=== PATIENT | male | born 1940 | race Caucasian/White ===

== ENCOUNTER 2020-01-01 09:05 | Outpatient (CLI) | payer MEDICARE, OTHER, SELFPAY ==
[2020-01-01 13:09] LABS: Basophils Percent Auto 0.4 % (0.2-1.2); Eosinophils Absolute Auto 0.5 K/mm3 (0-0.3); Eosinophils Percent Auto 8.1 % (0-4.4); Hemoglobin 15.8 g/dL (14.0-18.0); Immature Granulocyte Absolute 0.03 K/mm3 (0.00-0.031); Immature Granulocyte Percent A 0.5 % (0-0.5); Lymphocytes Absolute Auto 2.07 K/mm3 (0.9-3.2); Lymphocytes Percent Auto 36.6 % (18.3-44.2); Mean Corpuscular HGB Conc 32.2 g/dl (32-36); Mean Corpuscular Hemoglobin 30.6 pg (26-34); Monocytes Absolute Auto 0.4 K/mm3 (0.1-0.6); Monocytes Percent Auto 6.9 % (2.6-8.5); Neutrophils Absolute Auto 2.7 K/mm3 (1.3-6.7); Neutrophils Percent Auto 47.5 % (45.5-73.1); Platelet Count Result 255 k/mm3 (150-375); Red Blood Count 5.16 M/mm3 (4.6-6.20); Red Cell Distribution Width 12.1 % (11.5-14.5); White Blood Count 5.7 K/mm3 (4.5-10.0)
[2020-01-01 13:15] LABS: Cholesterol 166 mg/dL (0-200); HDL Direct 42 mg/dL; Triglycerides 144 mg/dL (<150)
[2020-01-01 13:17] LABS: Hemoglobin A1C 6.3 % (<5.7)
[2020-01-01 13:28] LABS: LDL Cholesterol Direct 100 mg/dL
[2020-01-04 10:25] LABS: Testosterone Total 644 ng/dL (250-1100)
== END 2020-01-01 09:06 | disposition home or self-care (01) ==
LOC: ANHWCLAB 09:14
PROVIDERS: PCP Internal Medicine; Visit Provider Internal Medicine
DX: R73.03 Prediabetes (principal); I10 Essential (primary) hypertension; E78.2 Mixed hyperlipidemia; N52.9 Male erectile dysfunction, unspecified; Z79.899 Other long term (current) drug therapy
CPT/HCPCS: 36415; 80061; 83036; 84403; 84443; 85025

== ENCOUNTER 2020-01-08 10:45 | Outpatient (CLI) | payer MEDICARE, OTHER, SELFPAY ==
[2020-01-08 13:53] LABS: Free T4 Free Thyroxine 1.03 ng/mL (0.78-2.19)
== END 2020-01-08 10:46 | disposition home or self-care (01) ==
LOC: ANHWCLAB 10:48
PROVIDERS: PCP Internal Medicine; Referring Provider Internal Medicine; Visit Provider Internal Medicine
DX: R94.6 Abnormal results of thyroid function studies (principal)
CPT/HCPCS: 36415; 84439

== ENCOUNTER 2020-10-19 01:31 | Outpatient (CLI) | payer MEDICARE, OTHER, SELFPAY ==
[2020-10-19 18:52] LABS: SARS-CoV-2 RNA PCR Negative
== END 2020-10-19 01:32 | disposition home or self-care (01) ==
LOC: ANHCOVIDDT 01:32
PROVIDERS: PCP Internal Medicine; Visit Provider Internal Medicine Gastroenterology
DX: Z01.818 Encounter for other preprocedural examination (principal); Z20.828 Contact with and (suspected) exposure to other viral communicable diseases
CPT/HCPCS: 87635; C9803; U0003

== ENCOUNTER 2020-10-22 00:32 | Day surgery (SDC) | payer MEDICARE, OTHER, SELFPAY ==
[2020-10-16 10:35] VITALS: BMI 22.6
--- NOTE | 2020-10-21 12:46 | WPDANESEPPF ---
Anes - Initial Pre Proc Eval Procedure: Operation Date: 10/22/20 09:30 Proposed Procedures p Colonoscopy - Shemar Luna MD Date/Time: 10/21/20 12:46 Surgeon: Shemar Luna MD Pre Op Diagnosis: Change In Bowel Habits Patient Data Age: 80 Gender: M Height: 1.88 m Weight: 80 kg Allergies Allergy/AdvReac Type Severity Reaction Status Date / Time No Known Allergies Allergy Unknown Verified 10/22/20 08:06 Home Medications Medication Instructions Recorded Confirmed Type omega-3 fatty acids-fish oil 360 3 cap PO DAILY cap 01/08/20 10/22/20 History mg-1,200 mg capsule lisinopril 10 mg tablet 10 mg PO DAILY #90 tablet 02/12/20 10/22/20 Rx atorvastatin 20 mg tablet 20 mg PO DAILY #90 tablet 07/06/20 10/22/20 Rx testosterone 3 pump TRANSDERM QAM #60 gm 09/23/20 10/22/20 Rx multivitamin 1 tablet PO DAILY 09/29/20 10/22/20 History metformin 500 mg PO DAILY 10/16/20 10/22/20 History Patient hx anesthesia problems: none Family hx anesthesia problems: none PMFSH Past Medical History Medical History (Updated 09/29/20 @ 09:24 by Nena Sepulveda CMA) Abnormal finding of blood chemistry Benign essential hypertension BMI 22.0-22.9, adult BMI 23.0-23.9, adult Borderline abnormal TFTs Change in bowel habits Changes in vision CKD (chronic kidney disease) Colon cancer screening Constipation Elevated TSH Encounter for Medicare annual wellness exam Encounter for routine adult health examination without abnormal findings Encounter for special screening examination for neoplasm of prostate Erectile dysfunction Hearing loss Hyperlipidemia On long term care social worker drug therapy Pre-diabetes 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 Vitamin D deficiency Family History Family History Father Family history of pancreatic cancer Social History Social History Smoking packs per day: 0.5 Smoking cigarettes per day: 10.0 Years smoked: 10 Smoking pack-years: 5.00 Smoking status: Light tobacco smoker Tobacco type: cigarettes Smoking end date: 11/13/72 Alcohol intake: current Drinks per week: 1 Substance use: never Substance use type: does not use Spiritual care concerns: No Anes - Eval Final PreProcedure Day of Procedure 10/21/20 12:46 Patient weight: normal Heart: regular rate and rhythm Lungs: clear to auscultation and normal air movement Airway: Mallampati scale class II Neurological: alert and oriented Last oral intake: >/= 8 hours ASA classification: III Emergent: no Anesthetic plan: proceed Anesthesia type and monitoring: general GIVS Informed Consent: The patient's anesthetic plan and its attendant risks and benefits were discussed with the patient/family/POA. Questions were solicited and answers provided to the satisfaction of the patient/family/POA.
[2020-10-22] MEDS: LACTATED RINGERS 1,000 ML 150 ML IV CONT (08:18)
[2020-10-22 08:22] LABS: Glucose Point of Care 90 (65-105)
[2020-10-22 08:23] VITALS: BP 123/73; PULSE 90; RESP 16; TEMP 36.9; O2SAT 97; BMI 22.1
--- NOTE | 2020-10-22 09:15 | WPDGICN ---
Assessment and Plan Assessment and plan (1) Colon cancer screening: Code(s): Z12.11 - Encounter for screening for malignant neoplasm of colon Status: Acute (2) Change in bowel habits: Code(s): R19.4 - Change in bowel habit Status: Acute Assessment and Plan: For this reason colonoscopy is requested will be performed today (3) Constipation: Qualifiers: Constipation type: unspecified constipation type Qualified Code(s): K59.00 - Constipation, unspecified Code(s): K59.00 - Constipation, unspecified Status: Acute Assessment and Plan: because of patient's constipation fiber supplementation such as Metamucil or FiberCon is advised daily. Supplement this with milk a magnesia as needed. GI Consult Note Consult date/time: 10/22/20 09:15 HPI: Issa Chatman is a 80 year old male I am asked to see for change in bowel habits. Patient reports worsening constipation. Has been worse over the last 2 months. Stools have become hard. He strains at stools. Typically had a bowel movement every 2 days previously. Patient denies any bleeding or weight loss. Family history is noncontributory. He reports having had a colonoscopy 5 years ago in [place]. Review of Systems Review of Systems: All systems reviewed & are unremarkable except as noted in HPI and below PMFSH Past Medical History Medical History Abnormal finding of blood chemistry Benign essential hypertension BMI 22.0-22.9, adult BMI 23.0-23.9, adult Borderline abnormal TFTs Change in bowel habits Changes in vision CKD (chronic kidney disease) Colon cancer screening Constipation Elevated TSH Encounter for Medicare annual wellness exam Encounter for routine adult health examination without abnormal findings Encounter for special screening examination for neoplasm of prostate Erectile dysfunction Hearing loss Hyperlipidemia On halfway drug therapy Pre-diabetes 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 Vitamin D deficiency Family History Family History Father Family history of pancreatic cancer Social History Social History Smoking packs per day: 0.5 Smoking cigarettes per day: 10.0 Years smoked: 10 Smoking pack-years: 5.00 Smoking status: Light tobacco smoker Tobacco type: cigarettes Smoking end date: 11/13/72 Alcohol intake: current Drinks per week: 1 Substance use: never Substance use type: does not use Spiritual care concerns: No Meds Home Medications and Allergies Home Medications Medication Instructions Recorded Confirmed Type omega-3 fatty acids-fish oil 360 3 cap PO DAILY cap 01/08/20 10/22/20 History mg-1,200 mg capsule lisinopril 10 mg tablet 10 mg PO DAILY #90 tablet 02/12/20 10/22/20 Rx atorvastatin 20 mg tablet 20 mg PO DAILY #90 tablet 07/06/20 10/22/20 Rx testosterone 3 pump TRANSDERM QAM #60 gm 09/23/20 10/22/20 Rx multivitamin 1 tablet PO DAILY 09/29/20 10/22/20 History metformin 500 mg PO DAILY 10/16/20 10/22/20 History Allergies Allergy/AdvReac Type Severity Reaction Status Date / Time No Known Allergies Allergy Unknown Verified 10/22/20 08:06 Vital Signs Vital Signs - 24 hr 10/22/20 08:23 Temperature 98.4 F Pulse Rate 90 Respiratory Rate 16 Blood Pressure 123/73 Pulse Oximetry 97 Exam Narrative: Exam Narrative: Physical exam reveals patient be alert. Vital signs stable. HEENT exam unremarkable. Lungs are clear to auscultation and percussion. Heart is without murmur or extra sounds. Abdominal exam bowel sounds are present soft nontender with no organomegaly. Digital rectal exam is normal.
[2020-10-22 09:48] VITALS: BP 84/55; PULSE 65; RESP 14; O2SAT 97
[2020-10-22 09:58] VITALS: BP 114/66; PULSE 58; RESP 14; O2SAT 95
[2020-10-22 10:08] VITALS: BP 114/73; PULSE 62; RESP 22; O2SAT 97
== END 2020-10-22 10:30 | disposition home or self-care (01) ==
PROVIDERS: PCP Internal Medicine; Visit Provider Internal Medicine Gastroenterology
PROC: 0DJD8ZZ Inspection of Lower Intestinal Tract, Via Natural or Artificial Opening Endoscopic (ICD-10-PCS; CPT 45378; principal; 2020-10-22 09:30)
DX: Z12.11 Encounter for screening for malignant neoplasm of colon (principal); K64.8 Other hemorrhoids; K59.00 Constipation, unspecified; I12.9 Hypertensive chronic kidney disease with stage 1 through stage 4 chronic kidney disease, or unspecified chronic kidney disease; N18.9 Chronic kidney disease, unspecified; E78.5 Hyperlipidemia, unspecified; R73.03 Prediabetes; E55.9 Vitamin D deficiency, unspecified; F17.210 Nicotine dependence, cigarettes, uncomplicated
CPT/HCPCS: G0121; J7120

== ENCOUNTER 2021-01-09 16:49 | Observation (INO) | payer MEDICARE, OTHER, SELFPAY ==
[2021-01-09] VITALS (32 sets, daily range): BP systolic 122–151; BP diastolic 66–88; PULSE 65–85; RESP 6–16; TEMP 36.3–36.8; O2SAT 93–100; BMI 23.8
--- NOTE | ~2021-01-09 | MR_ITS ---
EXAMINATION: MR brain/brain stem wo/w con DATE: 01/10/2021 10:34 INDICATION: Ataxia. Nausea and vomiting and dizziness. TECHNIQUE: Magnetic resonance imaging (MRI) of the brain and brainstem was performed without and with 14 mL MultiHance intravenous contrast. Sequences included sagittal and axial T1-weighted FSE, axial diffusion-weighted FS EPI, axial T2*-weighted GRE, axial T2-weighted FLAIR Propeller, and axial T2-we ighted Propeller. Postcontrast sequences included axial and coronal T1-weighted FSE. Apparent diffusi on coefficient (ADC) maps were created. COMPARISON: Head CT 01/09/2021 FINDINGS: There are scattered areas of nonspecific increased T2-weighted signal intensity in the cere bral white matter. There is no intracranial hemorrhage, acute infarction, or abnormal intracranial ma ss lesion. There is a small old infarct in right cerebellum. The ventricles are normal in size. There is mucosal thickening in the paranasal sinuses. There are likely changes of ocular lens replacement surgeries. The mastoid air cells are normal. IMPRESSION: 1. Small old infarct in right cerebellum. 2. Mild nonspecific cerebral white matter disease, which likely represents chronic small vessel ische haydee disease. Reviewed, dictated and finalized at location A. ICER IMPRESSION: 1. Small old infarct in right cerebellum. 2. Mild nonspecific cerebral white matter disease, which likely represents anesthesiology tech jaziel small vessel ischemic disease.
--- NOTE | ~2021-01-09 | CT_ITS ---
EXAMINATION: CTA brain carotid DATE: 01/09/2021 19:40 INDICATION: Stroke. TECHNIQUE: Computed tomographic angiography (CTA) of the head was performed without and with 100 mL O mnipaque-350 intravenous contrast. CTA of the neck was performed with intravenous contrast. Automated exposure control and iterative reconstruction technique were employed. The dose-length product was 1 866.59 mGy-cm. Maximum intensity projection and volume rendered 3D-reconstructions were created by hans maldonado technologist on a separate workstation. COMPARISON: None. FINDINGS: HEAD CTA: There are scattered areas of low attenuation in the cerebral white matter, which is within normal limits for the patient's age. There is no intracranial hemorrhage, acute infarction, or abnorm al intracranial mass lesion. The ventricles are normal in size. There is mucosal thickening in the pa ranasal sinuses. There are likely changes of ocular lens replacement surgeries. The mastoid air cells are normal. Right vertebral artery is dominant. There is no significant stenosis of basilar artery o r the posterior cerebral arteries. There is no significant stenosis of the intracranial internal vance tid arteries or anterior or middle cerebral arteries. Anterior communicating artery is normal. Right posterior communicating artery is normal. A left posterior communicating artery is not identified. Th ere is no aneurysm. NECK CTA: There is mild scarring at the lung apices. There is mild plaque in proximal right internal carotid artery. There is 0% stenosis of the proximal right internal carotid artery relative to normal distal artery lumen diameter (NASCET criteria). There is 0% stenosis of the proximal left internal c arotid artery relative to normal distal artery lumen diameter. There is no significant stenosis of th e vertebral arteries. There is moderate thoracic spondylosis. IMPRESSION: 1. Normal aging brain. No aneurysm or significant intracranial arterial stenosis. 2. 0% stenosis of the proximal internal carotid arteries relative to normal distal artery lumen diame ters (NASCET criteria). Reviewed, dictated and finalized at location A. GRATION SOFTWARE DEVELOPER IMPRESSION: 1. Normal aging brain. No aneurysm or significant intracranial arterial stenosi s. 2. 0% stenosis of the proximal internal carotid arteries relative to normal dis lyndon artery lumen diameters (NASCET criteria).
--- NOTE | 2021-01-09 16:53 | ECG_ITS ---
Measurements Intervals [place] Rate: 67 P: 67 TN: 201 QRS: 6 QRSD: 107 T: 58 QT: 369 QTc: 390 Interpretive Statements SINUS RHYTHM BORDERLINE AV CONDUCTION DELAY POSSIBLE LEFT ATRIAL ENLARGEMENT CANNOT RULE OUT SEPTAL INFARCT, AGE INDETERMINATE BASELINE ARTIFACT- I, III, AVL, V1-V2 ABNORMAL ECG Electronically Signed On 01-09-2021 18:19:28 FITNESS AND WELLNESS DIRECTOR by Jose Delacruz D.O.
[2021-01-09] MEDS: SODIUM CHLORIDE 0.9% IV 1,000 ML 999 ML IV CONT (17:13)
[2021-01-09] MEDS: MECLIZINE HCL 25 MG TABLET PO (17:13)
[2021-01-09 17:17] LABS: Basophils Percent Auto 0.2 % (0.2-1.2); Eosinophils Absolute Auto 0.3 K/mm3 (0-0.3); Eosinophils Percent Auto 3.4 % (0-4.4); Hematocrit 42.5 % (42.0-52.0); Hemoglobin 14.2 g/dL (14.0-18.0); Immature Granulocyte Absolute 0.06 K/mm3 (0.00-0.031); Immature Granulocyte Percent A 0.7 % (0-0.5); Lymphocytes Absolute Auto 2.21 K/mm3 (0.9-3.2); Lymphocytes Percent Auto 25.6 % (18.3-44.2); Mean Corpuscular HGB Conc 33.4 g/dl (32-36); Mean Corpuscular Volume 95.7 fl (80-100); Mean Platelet Volume 9.1 fl (7.4-10.4); Monocytes Absolute Auto 0.4 K/mm3 (0.1-0.6); Monocytes Percent Auto 4.3 % (2.6-8.5); Neutrophils Absolute Auto 5.7 K/mm3 (1.3-6.7); Neutrophils Percent Auto 65.8 % (45.5-73.1); Platelet Count Result 222 k/mm3 (150-375); Red Blood Count 4.44 M/mm3 (4.6-6.20); Red Cell Distribution Width 11.9 % (11.5-14.5); White Blood Count 8.6 K/mm3 (4.5-10.0)
[2021-01-09 17:28] LABS: Anion Gap 5 mmol/L (8-16); Blood Urea Nitrogen 18 mg/dL (9-20); Calcium 8.4 mg/dL (8.4-10.2); Carbon Dioxide 28 mmol/L (22-30); Chloride 105 mmol/L (98-107); Estimated CRCL calculation 42 ml/min; Estimated Glomerular Filt Rate 53; Glucose 128 mg/dL (75-110); Potassium 4.4 mmol/L (3.4-5.0); Sodium 138 mmol/L (137-145)
--- NOTE | 2021-01-09 17:31 | ED.DIZZY ---
HPI - Dizziness General Chief Complaint: Dizziness Stated Complaint: dizzy n/v History of Present Illness HPI Narrative: Patient is a 80-year-old male who presents to the ER with dizziness. Reports that he had gotten back home after having a workout when he developed sudden dizziness like the room was moving. Is associated with extreme nausea and he started vomiting. No chest pain or pressure. No racing heart. He has had no focal weakness in arm or leg. No slurred speech. Has not had similar symptoms before. He has been without any URI symptoms. Related Data Home Medications Medication Instructions Recorded Confirmed omega-3 fatty acids-fish oil 360 3 cap PO DAILY cap 01/08/20 10/22/20 mg-1,200 mg capsule multivitamin 1 tablet PO DAILY 09/29/20 10/22/20 metformin 500 mg PO DAILY 10/16/20 10/22/20 Allergies Allergy/AdvReac Type Severity Reaction Status Date / Time No Known Allergies Allergy Unknown Verified 01/09/21 16:54 Review of Systems Review of Systems: All systems reviewed & are unremarkable except as noted in HPI and below Constitutional: Constitutional: Denies chills, Denies fever(s) and Denies weakness ENT: Reports dizziness, Denies nasal congestion and Denies sore throat Cardiovascular: Cardiovascular: Denies chest pain, Denies rapid heart rate and Denies radiating jaw, neck or arm pain Gastrointestinal: Gastrointestinal: Denies abdominal pain, Denies diarrhea, Reports nausea and Reports vomiting Neurologic: Reports vertigo, Denies headache(s), Denies focal weakness and Denies numbness PMFSH Past Medical History Medical History (Updated 01/09/21 @ 20:22 by Rene Foss MD) Abnormal finding of blood chemistry Benign essential hypertension BMI 22.0-22.9, adult BMI 23.0-23.9, adult Borderline abnormal TFTs Change in bowel habits Changes in vision CKD (chronic kidney disease) Colon cancer screening Constipation Elevated TSH Encounter for Medicare annual wellness exam Encounter for routine adult health examination without abnormal findings Encounter for special screening examination for neoplasm of prostate Erectile dysfunction Hearing loss Hyperlipidemia On intermodal truck driver drug therapy Pre-diabetes 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 Vitamin D deficiency Surgical History Surgical History (Updated 01/09/21 @ 17:34 by Rene Foss MD) Hx of appendectomy Family History Family History Father Family history of pancreatic cancer Social History Social History Smoking packs per day: 0.5 Smoking cigarettes per day: 10.0 Years smoked: 10 Smoking pack-years: 5.00 Smoking status: Light tobacco smoker Tobacco type: cigarettes Smoking end date: 11/13/72 Alcohol intake: current Drinks per week: 1 Substance use: never Substance use type: does not use Gender identity (if verbalized by the patient): Male Spiritual care concerns: No Exam Narrative: Exam Narrative: GENERAL: Well-appearing, well-nourished, and in no acute distress. HEAD: Normocephalic, atraumatic. EYES: PERRL and EOMI. no nystagmus ENT: Mucous membranes moist. Mild amount of cerumen in the ear canals bilaterally but no impaction. TMs without evidence of fullness or infection. NECK: Supple. CHEST: Clear to auscultation. No respiratory distress. HEART: Regular rate and rhythm. Normal peripheral pulses. ABDOMEN: Soft, nontender, nondistended. EXTREMITIES: Normal range of motion. No edema. NEURO: Alert and oriented x3. Cranial nerves II through XII intact. No upper or lower extremity drift. Finger-nose testing intact. Normal [id number]-pwvd. Ataxia with ambulation. Course Course Emergency Course: Patient ataxic with ambulation x2. Will admit for further work-up. Vital Signs Vital signs: Vital Signs Temperature 97.3 F L 01/09/21 16:48 Pulse R
--- NOTE | 2021-01-09 19:16 | PC.NURSE ---
asked to ambulate the pt, needed to be held, nearly fell x2 informed dr zhang, CT scan of brain ordered.
--- NOTE | 2021-01-09 21:00 | PM.IMHP ---
H&P: HPI History of Present Illness Date/Time: 01/09/21 21:00 Chief Complaint: Dizziness and disequilibrium today++ Narrative: This is a pleasant 80 year old Diabetic male who is treated for hyperlipidemia and HTN and presented to the hospital with a complaint of dizziness and disequilibrium since this morning. The patient is known to live at home with his and works out at the gym every other day. Today he came home from his usual gym workout and was sitting in his recliner. While sitting he started to feel dizzy and describes his dizziness as a sensation of the room moving around. He stood up and felt like he was going to pass out. Associated symptoms included nausea and vomiting. He denies any headache, neck stiffness, blurry vision, double vision, slurred speech, swallowing difficulty, facial droop, focal weakness, ear ringing, hearing loss, head trauma, numbness, tingling, seizure like activity, passing out, chest pain, palpitations, shortness of breath, abdominal pain, dysuria, hematuria, diarrhea, rectal bleeding, or LE swelling/pain. The patient was evaluated in the ER tonight and CTA head and neck was performed which did not show any acute intracranial arterial stenosis. The patient was treated with meclizine. He continues to have dizziness. We were asked to admit the patient to the hospital for continued care and to rule out a posterior stroke. No other complaints. Review of Systems Review of Systems: All systems reviewed & are unremarkable except as noted in HPI and below PMFSH Past Medical History Medical History Abnormal finding of blood chemistry Benign essential hypertension BMI 22.0-22.9, adult BMI 23.0-23.9, adult Borderline abnormal TFTs Change in bowel habits Changes in vision CKD (chronic kidney disease) Colon cancer screening Constipation Elevated TSH Encounter for Medicare annual wellness exam Encounter for routine adult health examination without abnormal findings Encounter for special screening examination for neoplasm of prostate Erectile dysfunction Hearing loss Hyperlipidemia On laborer marine terminal drug therapy Pre-diabetes 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 Vitamin D deficiency Surgical History Surgical History Hx of appendectomy Family History Family History Father Family history of pancreatic cancer Social History Social History Smoking packs per day: 0.5 Smoking cigarettes per day: 10.0 Years smoked: 10 Smoking pack-years: 5.00 Smoking status: Light tobacco smoker Tobacco type: cigarettes Smoking end date: 11/13/72 Alcohol intake: current Drinks per week: 1 Substance use: never Substance use type: does not use Gender identity (if verbalized by the patient): Male Spiritual care concerns: No Meds Home Medications and Allergies Home Medications Medication Instructions Recorded Confirmed Type omega-3 fatty acids-fish oil 360 3 cap PO DAILY cap 01/08/20 10/22/20 History mg-1,200 mg capsule lisinopril 10 mg tablet 10 mg PO DAILY #90 tablet 02/12/20 10/22/20 Rx testosterone 3 pump TRANSDERM QAM #60 gm 09/23/20 10/22/20 Rx multivitamin 1 tablet PO DAILY 09/29/20 10/22/20 History metformin 500 mg PO DAILY 10/16/20 10/22/20 History atorvastatin 20 mg tablet 20 mg PO DAILY #90 tablet 12/01/20 Rx Allergies Allergy/AdvReac Type Severity Reaction Status Date / Time No Known Allergies Allergy Unknown Verified 01/09/21 16:54 Vital Signs Vital Signs - 24 hr 01/09/21 16:48 01/09/21 16:53 01/09/21 16:54 Temperature 36.3 C L Pulse Rate 69 71 69 Respiratory Rate 16 10 L 11 L Blood Pressure 141/86 H Pulse Oximetry 98 98 98 01/09/21 17:00 01/09/21 17:01 01/09/21 17:02 Temperature Pulse Rat
[2021-01-09] MEDS: ASPIRIN 325 MG ENTERIC TABLET PO (22:24)
[2021-01-09] MEDS: SODIUM CHLORIDE 0.9% IV 1,000 ML 75 ML IV CONT (23:53)
[2021-01-10] VITALS (7 sets, daily range): BP systolic 102–115; BP diastolic 64–72; PULSE 64–81; RESP 12–18; TEMP 36.2–36.6; O2SAT 96–100
[2021-01-10 01:04] LABS: Glucose Point of Care 118 (65-105)
--- NOTE | 2021-01-10 03:46 | ADMGEN ---
This patient, Issa Chatman, was admitted to Medical Room [facility]- on 01/09/21 at 2320. Patient/family oriented to hospital policies and general routines including ID bracelet, bed and alarms, visiting hours, pain management, procedures, bathroom and other care routines, personal items, smoking policy, room service/diet, and visiting hours. Information on how to activate the Rapid Response Team has been discussed. Patient/Family are encouraged to report perceived risks to care and to ask questions if they do not understand what they are told or what they should do.
[2021-01-10 05:55] LABS: Basophils Percent Auto 0.3 % (0.2-1.2); Eosinophils Absolute Auto 0.2 K/mm3 (0-0.3); Eosinophils Percent Auto 2.7 % (0-4.4); Hematocrit 41.6 % (42.0-52.0); Hemoglobin 13.9 g/dL (14.0-18.0); Immature Granulocyte Absolute 0.02 K/mm3 (0.00-0.031); Immature Granulocyte Percent A 0.3 % (0-0.5); Lymphocytes Absolute Auto 2.24 K/mm3 (0.9-3.2); Lymphocytes Percent Auto 30.6 % (18.3-44.2); Mean Corpuscular HGB Conc 33.4 g/dl (32-36); Mean Corpuscular Hemoglobin 32.1 pg (26-34); Mean Corpuscular Volume 96.1 fl (80-100); Mean Platelet Volume 9.1 fl (7.4-10.4); Monocytes Absolute Auto 0.5 K/mm3 (0.1-0.6); Monocytes Percent Auto 6.8 % (2.6-8.5); Neutrophils Absolute Auto 4.3 K/mm3 (1.3-6.7); Neutrophils Percent Auto 59.3 % (45.5-73.1); Platelet Count Result 226 k/mm3 (150-375); Red Blood Count 4.33 M/mm3 (4.6-6.20); White Blood Count 7.3 K/mm3 (4.5-10.0)
[2021-01-10 06:12] LABS: Anion Gap 5 mmol/L (8-16); Blood Urea Nitrogen 16 mg/dL (9-20); Calcium 8.2 mg/dL (8.4-10.2); Carbon Dioxide 31 mmol/L (22-30); Chloride 103 mmol/L (98-107); Estimated CRCL calculation 49 ml/min; Estimated Glomerular Filt Rate 53; Glucose 97 mg/dL (75-110); Magnesium 1.9 mg/dL (1.6-2.3); Potassium 4.4 mmol/L (3.4-5.0); Sodium 139 mmol/L (137-145)
[2021-01-10 09:05] LABS: Glucose Point of Care 115 (65-105)
[2021-01-10] MEDS: MECLIZINE HCL 25 MG TABLET PO ×3 (09:30→16:25)
[2021-01-10] MEDS: lisinopriL 10 MG TABLET PO (11:16)
[2021-01-10] MEDS: MULTIVITAMINS THERAPEUTIC TAB (*BKC) 1 TABLET PO (11:16)
[2021-01-10] MEDS: metFORMIN HCL 500 MG TABLET PO (12:26)
[2021-01-10 12:37] LABS: Glucose Point of Care 157 (65-105)
--- NOTE | 2021-01-10 16:01 | PM.DS ---
DS: Admitting Diagnosis Admitting Diagnosis Admitting Diagnosis: Chief Complaint: Dizziness and disequilibrium today++ DS: Discharge Diagnosis Discharge Diagnosis (1) Dizziness: Code(s): R42 - Dizziness and giddiness Status: Acute Assessment and Plan: The patient has been placed in observation status. Neurochecks, ASA therapy. Monitor blood pressure. Allow for permissive HTN. TSH w/ reflex T4, Recent lipid panel was normal according to the patient. Echocardiogram in am. MRI brain has been ordered. Neurology consult in am. (2) Hyperlipidemia: Qualifiers: Hyperlipidemia type: mixed hyperlipidemia Qualified Code(s): E78.2 - Mixed hyperlipidemia Code(s): E78.5 - Hyperlipidemia, unspecified Status: Chronic Assessment and Plan: Continue atorvastatin and omega 3 fish oil. (3) Benign essential hypertension: Code(s): I10 - Essential (primary) hypertension Status: Chronic Assessment and Plan: Stable. Monitor blood pressure. Continue lisinopril. PRN IV hydralazine is ordered w/ parameters (4) Pre-diabetes: Code(s): R73.03 - Prediabetes Status: Chronic Assessment and Plan: accuchecks, SSI Coverage, hypoglycemic protocol. Continue metformin PO. DS: Summary Hospital Course Reason for hospitalization: Chief Complaint: Dizziness and disequilibrium today++ Narrative: This is a pleasant 80 year old Diabetic male who is treated for hyperlipidemia and HTN and presented to the hospital with a complaint of dizziness and disequilibrium since this morning. The patient is known to live at home with his and works out at the gym every other day. Today he came home from his usual gym workout and was sitting in his recliner. While sitting he started to feel dizzy and describes his dizziness as a sensation of the room moving around. He stood up and felt like he was going to pass out. Associated symptoms included nausea and vomiting. He denies any headache, neck stiffness, blurry vision, double vision, slurred speech, swallowing difficulty, facial droop, focal weakness, ear ringing, hearing loss, head trauma, numbness, tingling, seizure like activity, passing out, chest pain, palpitations, shortness of breath, abdominal pain, dysuria, hematuria, diarrhea, rectal bleeding, or LE swelling/pain. The patient was evaluated in the ER tonight and CTA head and neck was performed which did not show any acute intracranial arterial stenosis. The patient was treated with meclizine. He continues to have dizziness. We were asked to admit the patient to the hospital for continued care and to rule out a posterior stroke. No other complaints. Hospital Course: Patient had CT of head and MRI of brain which are negative for acute injury, patient symptoms have improved and he was able to ambulate and participate with PT without any difficulty, patient and his would like to be discharged home and will follow up with his primary care provider for cardiac echo with bubble. patient to follow up with his primary care provider as soon as possible. patient is instructed if any symptoms redevelop to go to nearest ER. Status at Discharge Functional status at discharge: independent ambulation Overall status at discharge: patient is back to baseline Time Spent with Patient Time attestation: Patient was seen and examined at the time of the discharge Condition at discharge is stable Code status: Full code. Time spent preparing discharge summary, discharge medications, discussing discharge planning with case planner and patient is 35 minutes. Time spent: Greater than 30 minutes Exam Narrative: Exam Narrative: Patient is comfortable, NAD HEENT: eyes are clear and none icteric LUNGS:CTA HEART: RR S1S2 ABD: BS+, Soft and nontender Lower extremities: no edema SKIN: nonjaundiced Neuro: grossly intact. DS: Data Data Completed and Pending Labs on day of discharge: Labs from last 24
== END 2021-01-10 17:23 | disposition home or self-care (01) ==
LOC: ANHED 20:25 → ANH3MED 01-10 03:42
PROVIDERS: Admitting Provider Family Medicine; Emergency Provider Emergency Medicine; PCP Internal Medicine; Visit Provider Family Medicine
DX: R42 Dizziness and giddiness (principal); E78.5 Hyperlipidemia, unspecified; I10 Essential (primary) hypertension; E11.9 Type 2 diabetes mellitus without complications; Z87.891 Personal history of nicotine dependence; Z85.828 Personal history of other malignant neoplasm of skin; Z79.4 Long term (current) use of insulin
CPT/HCPCS: 36415; 70496; 70498; 70553; 80048; 82948; 83735; 84443; 85025; 93005; 96360; 96361; 97161; 97165; 99285; A9270; A9577; G0378; J7030; Q9967

== ENCOUNTER 2021-01-19 17:14 | Outpatient (CLI) | payer MEDICARE, OTHER, SELFPAY | END 2021-01-19 17:15 | disposition home or self-care (01) | LOC: ANHCOVIDVC 17:14 | PROVIDERS: PCP Internal Medicine | DX: Z23 Encounter for immunization (principal) | CPT/HCPCS: 0001A; 91300 ==

== ENCOUNTER 2021-02-05 08:52 | Outpatient (CLI) | payer MEDICARE, OTHER, SELFPAY ==
--- NOTE | 2021-02-05 08:56 | ECHO_ITS ---
Patient Info Name: Issa Chatman Age: 80 years : 1940 Gender: Male Ht: 74 in Wt: 180 lbs BSA: 2.06 m2 HR: 65 bpm BP: 130 / 82 mmHg Technical Quality: Good Exam Date: 02/05/2021 9:27 AM Exam Location: [facility] Patient Status: Outpatient Admit Date: 02/05/2021 Staff Ordering Physician: Raj Stevens MD Metal Box Maker: Ni Hebert RDCS Attending Provider: Raj Stevens MD Referring Physician: Rodney VALDOVINOS; Exam Type: CA echo doppler color flow Study Info Indications Z86.73 - Personal history of transient ischemic attack (TIA), and cerebral infarction without residual deficits Complete two-dimensional, color flow and Doppler transthoracic echocardiogram is performed. Summary 1. Complete two-dimensional, color flow and Doppler transthoracic echocardiogram is performed. 2. Left ventricular chamber dimension is normal. 3. Left ventricular systolic function is normal, estimated at 60-65%. 4. There is mildly increased left ventricular wall thickness. 5. The left ventricular diastolic function is grade I diastolic dysfunction. 6. E/e' 6 is not elevated. 7. No pulmonary hypertension, estimated pulmonary arterial systolic pressure is 25 mmHg. Left Ventricle E/e' 6 is not elevated. Left ventricular chamber dimension is normal. Left ventricular systolic function is normal, estimated at 60-65%. There is mildly increased left ventricular wall thickness. The left ventricular diastolic function is grade I diastolic dysfunction. Right Ventricle Right ventricular chamber dimension is normal. Right ventricular systolic function is normal. Left Atria Left atrial chamber dimension is normal. Right Atria Right atrial chamber dimension is normal. Aortic Valve The aortic valve is trileaflet. There is no aortic valve stenosis. There is no aortic valve regurgitation. Pulmonic Valve There is no pulmonic regurgitation. Mitral Valve There is no mitral valve stenosis. There is no mitral valve regurgitation. Tricuspid Valve There is no tricuspid valve regurgitation. No pulmonary hypertension, estimated pulmonary arterial systolic pressure is 25 mmHg. Pericardium/Pleural There is no pericardial effusion. Inferior Vena Cava Normal inferior vena cava with >50% collapse upon inspiration consistent with normal right atrial pressure, 5 mmHg. Aorta The aortic root size at the sinus of Valsalva is normal. Left Ventricular Outflow Tract Name Value Normal LVOT 2D LVOT Diameter 2.1 cm LVOT Doppler LVOT Peak Gradient 3 mmHg LVOT Mean Gradient 2 mmHg LVOT VTI 19 cm LVOT VTI/AV VTI Ratio 1.0 LVOT Stroke Volume 68 ml LVOT CO 13.7 l/min LVOT CI 6.7 l/min/m2 Pulmonic Valve Name Value Normal
== END 2021-02-05 08:53 | disposition home or self-care (01) ==
PROVIDERS: PCP Internal Medicine; Visit Provider Internal Medicine
DX: Z86.73 Personal history of transient ischemic attack (TIA), and cerebral infarction without residual deficits (principal); I10 Essential (primary) hypertension
CPT/HCPCS: 93306

== ENCOUNTER 2021-02-09 16:56 | Outpatient (CLI) | payer MEDICARE, OTHER, SELFPAY | END 2021-02-09 16:57 | disposition home or self-care (01) | LOC: ANHCOVIDVC 16:56 | PROVIDERS: PCP Internal Medicine | DX: Z23 Encounter for immunization (principal) | CPT/HCPCS: 0002A; 91300 ==

== ENCOUNTER 2021-03-17 13:35 | Outpatient (CLI) | payer MEDICARE, OTHER, SELFPAY ==
--- NOTE | ~2021-03-17 | US_ITS ---
EXAMINATION: US renal BI DATE: 03/17/2021 14:06 INDICATION: Stage I chronic kidney disease. TECHNIQUE: Multiple ultrasound grayscale images of the kidneys were obtained. COMPARISON: None. FINDINGS: The right kidney measures 10.7 x 5.7 x 4.4 cm. The left kidney measures 10.9 x 5.4 x 4.3 cm. The kidn eys demonstrate normal echogenicity. 1.4 cm parapelvic cyst at the left kidney. There is no hydroneph rosis in either kidney. No stones identified. The bladder is normal. Prostatomegaly measuring 5.1 x 4.3 x 3.8 cm . IMPRESSION: 1. 1.4 cm left renal cyst. Otherwise normal kidneys without hydronephrosis. 2. Prostatomegaly. Reviewed, dictated and finalized at location A.
== END 2021-03-17 13:36 | disposition home or self-care (01) ==
PROVIDERS: PCP Internal Medicine; Visit Provider Internal Medicine
DX: N18.1 Chronic kidney disease, stage 1 (principal); N40.0 Benign prostatic hyperplasia without lower urinary tract symptoms; N28.1 Cyst of kidney, acquired
CPT/HCPCS: 76775

== ENCOUNTER 2022-09-13 13:00 | Outpatient (NON) | payer MEDICARE, OTHER, SELFPAY | END 2022-09-13 13:01 | disposition home or self-care (01) | PROVIDERS: PCP Internal Medicine; Visit Provider Nurse Practitioner | DX: L82.1 Other seborrheic keratosis (principal) | CPT/HCPCS: 88305 ==

== ENCOUNTER 2022-11-29 10:17 | Outpatient (CLI) | payer MEDICARE, OTHER, SELFPAY ==
[2022-11-29 20:20] LABS: Alanine Aminotransferase 10 U/L (6-50); Albumin Level 3.8 g/dL (3.5-5.1); Alkaline Phosphatase 62 U/L (38-126); Anion Gap 3 mmol/L (8-16); Aspartate Amino Transferase 37 U/L (17-59); Bilirubin,Total 0.6 mg/dL (0.2-1.3); Blood Urea Nitrogen 14 mg/dL (9-20); Calcium 8.6 mg/dL (8.4-10.2); Carbon Dioxide 29 mmol/L (22-30); Chloride 104 mmol/L (98-107); Cholesterol 138 mg/dL (0-200); Estimated Glomerular Filt Rate 53; Glucose 109 mg/dL (65-110); HDL Direct 44 mg/dL; Potassium 4.5 mmol/L (3.4-5.0); Sodium 136 mmol/L (137-145); Triglycerides 101 mg/dL (<150)
[2022-11-29 20:31] LABS: LDL Cholesterol Direct 67 mg/dL
[2022-11-29 20:43] LABS: Basophils Percent Auto 0.4 % (0.2-1.2); Eosinophils Absolute Auto 0.4 K/mm3 (0-0.3); Eosinophils Percent Auto 6.2 % (0-4.4); Hematocrit 40.8 % (42.0-52.0); Hemoglobin 13.2 g/dL (14.0-18.0); Immature Granulocyte Absolute 0.02 K/mm3 (0.00-0.031); Immature Granulocyte Percent A 0.4 % (0-0.5); Lymphocytes Absolute Auto 1.82 K/mm3 (0.9-3.2); Mean Corpuscular HGB Conc 32.4 g/dl (32-36); Mean Corpuscular Hemoglobin 32.4 pg (26-34); Mean Corpuscular Volume 100.2 fl (80-100); Mean Platelet Volume 9.5 fl (7.4-10.4); Monocytes Absolute Auto 0.5 K/mm3 (0.1-0.6); Monocytes Percent Auto 8.1 % (2.6-8.5); Neutrophils Percent Auto 52.9 % (45.5-73.1); Platelet Count Result 279 k/mm3 (150-375); Red Blood Count 4.07 M/mm3 (4.6-6.20); Red Cell Distribution Width 12.8 % (11.5-14.5); White Blood Count 5.7 K/mm3 (4.5-10.0)
[2022-11-30 08:33] LABS: Iron 89 ug/dL (49-181)
[2022-11-30 08:42] LABS: Percent Iron Saturation 36 % (20-50)
[2022-11-30 09:43] LABS: Folic Acid > 20.0 ng/mL (2.76->20)
[2022-12-01 11:41] LABS: Hemoglobin A1C 5.7 % (<5.7)
== END 2022-11-29 10:18 | disposition home or self-care (01) ==
LOC: ANHGOSHLAB 10:19
PROVIDERS: PCP Internal Medicine; Visit Provider Internal Medicine
DX: R73.03 Prediabetes (principal); R94.6 Abnormal results of thyroid function studies; I10 Essential (primary) hypertension; E78.5 Hyperlipidemia, unspecified; R79.9 Abnormal finding of blood chemistry, unspecified; D64.9 Anemia, unspecified; Z79.899 Other long term (current) drug therapy
CPT/HCPCS: 36415; 80053; 80061; 82607; 82728; 82746; 83036; 83540; 83550; 84439; 85025

== ENCOUNTER 2023-03-13 02:04 | Day surgery (SDC) | payer MEDICARE, OTHER, SELFPAY ==
[2023-03-09 13:42] VITALS: BMI 22.9
[2023-03-13 09:38] VITALS: BP 95/75; PULSE 99; RESP 18; TEMP 36.2; O2SAT 100
--- NOTE | 2023-03-13 09:47 | PM.HPGS ---
History of Present Illness History of Present Illness Consent: Risks, benefits, and alternatives have been discussed and questions answered. Patient agrees to proceed with procedure. Chief complaint: occult blood in stools Narrative: Issa Chatman is a 82 year old male Presents for both colonoscopy and EGD. Patient reports occult blood in stool on recent stool examination. Patient denies any obvious blood in his stools. Patient does have a history of hemorrhoids identified by colonoscopy 3 years ago in 2019. Patient denies any abdominal pain. Family history noncontributory. Patient does report some recent weakness. Review of Systems Review of Systems: Review of systems noncontributory. [facility] Past Medical History Medical History (Updated 02/06/23 @ 11:44 by Nena Sepulveda CMA) Abnormal finding of blood chemistry Benign essential hypertension Bilateral foot pain BMI 22.0-22.9, adult BMI 23.0-23.9, adult Borderline abnormal TFTs Bradykinesia Change in bowel habits Changes in vision CKD (chronic kidney disease) Colon cancer screening Constipation Cyst Encounter for Medicare annual wellness exam Encounter for routine adult health examination with abnormal findings Encounter for routine adult health examination without abnormal findings Encounter for special screening examination for neoplasm of prostate Erectile dysfunction Follow up Hearing loss History of CVA in adulthood Hyperlipidemia Hypothyroidism (acquired) Impaired functional mobility, balance, gait, and endurance On usp drug therapy Onychomycosis Parkinsonism Positive fecal occult blood test Pre-diabetes 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 right hearing loss Testicular hypofunction Trapezius muscle spasm Vitamin D deficiency Surgical History Surgical History Hx of appendectomy Family History Family History Father Family history of pancreatic cancer Social History Social History Smoking packs per day: 0.5 Smoking cigarettes per day: 10.0 Years smoked: 10 Smoking pack-years: 5.00 Smoking status: Former smoker Tobacco type: cigarettes Smoking end date: 11/13/72 Additional smoking assessment comments: not a heavy smoker Alcohol intake: current Drinks per week: 2 Alcohol use details: socially Substance use: never Substance use type: does not use Living arrangements: with family Occupation/Education: retired Gender identity (if verbalized by the patient): Male Spiritual care concerns: No Meds Home Medications and Allergies Home Medications Medication Instructions Recorded Confirmed Type omega-3 fatty acids-fish oil 360 3 cap PO DAILY 01/08/20 03/09/23 History mg-1,200 mg capsule multivitamin 1 tablet PO DAILY 09/29/20 03/09/23 History calcium polycarbophil 625 mg 1,250 mg PO BID 03/11/21 03/09/23 History tablet (FiberCon) lisinopril 5 mg tablet 5 mg PO DAILY #90 tabs 08/23/22 03/09/23 Rx atorvastatin 20 mg tablet 10 mg PO HS #90 tabs 10/31/22 03/09/23 Rx levothyroxine 75 mcg tablet See Rx Instructions .Route 01/24/23 03/09/23 Rx .COMPLEX #90 tabs testosterone 10 mg/0.5 3 pump topical DAILY #60 grams 02/13/23 03/09/23 Rx gram/actuation transdermal gel pump carbidopa 25 mg-levodopa 100 mg See Rx Instructions .Route 03/08/23 03/09/23 Rx tablet .COMPLEX #270 tabs metformin 500 mg tablet 500 mg PO DAILY 03/09/23 03/09/23 History Allergies Allergy/AdvReac Type Severity Reaction Status Date / Time No Known Allergies Allergy Unknown Verified 03/13/23 09:36 Vital Signs Vital Signs - 24 hr 03/13/23 09:38 Temperature 97.2 F L Pulse Rate 99 Respiratory Rate 18 Blood Pressure 95/75 L Pulse Oximetry 100 Oxygen Delivery Room Air Exam Narrative: Physical exam reveals
[2023-03-13] MEDS: LACTATED RINGERS 1,000 ML 150 ML IV CONT (09:50)
--- NOTE | 2023-03-13 10:22 | WPDANESEPPF ---
Anes - Initial Pre Proc Eval Procedure: Operation Date: 03/13/23 10:45 Proposed Procedures p Esophagogastroduodenoscopy & Colonoscopy - Shemar Luna MD Date/Time: 03/13/23 10:22 Surgeon: Shemar Luna MD Pre Op Diagnosis: occult blood in stools Patient Data Age: 82 Gender: M Height: 1.88 m Weight: 77.6 kg Last Vital Signs Temp 97.2 F L 03/13/23 09:38 Pulse 99 03/13/23 09:38 Resp 18 03/13/23 09:38 BP 95/75 L 03/13/23 09:38 Pulse Ox 100 03/13/23 09:38 O2 Del Method Room Air 03/13/23 09:38 Allergies Allergy/AdvReac Type Severity Reaction Status Date / Time No Known Allergies Allergy Unknown Verified 03/13/23 09:36 Home Medications Medication Instructions Recorded Confirmed Type omega-3 fatty acids-fish oil 360 3 cap PO DAILY 01/08/20 03/09/23 History mg-1,200 mg capsule multivitamin 1 tablet PO DAILY 09/29/20 03/09/23 History calcium polycarbophil 625 mg 1,250 mg PO BID 03/11/21 03/09/23 History tablet (FiberCon) lisinopril 5 mg tablet 5 mg PO DAILY #90 tabs 08/23/22 03/09/23 Rx atorvastatin 20 mg tablet 10 mg PO HS #90 tabs 10/31/22 03/09/23 Rx levothyroxine 75 mcg tablet See Rx Instructions .Route 01/24/23 03/09/23 Rx .COMPLEX #90 tabs testosterone 10 mg/0.5 3 pump topical DAILY #60 grams 02/13/23 03/09/23 Rx gram/actuation transdermal gel pump carbidopa 25 mg-levodopa 100 mg See Rx Instructions .Route 03/08/23 03/09/23 Rx tablet .COMPLEX #270 tabs metformin 500 mg tablet 500 mg PO DAILY 03/09/23 03/09/23 History Patient hx anesthesia problems: none Family hx anesthesia problems: none Results Review: All pre-operative results and documents have been reviewed as part of the pre-operative evaluation. [facility] Past Medical History Medical History (Updated 02/06/23 @ 11:44 by Nena Sepulveda [facility]) Abnormal finding of blood chemistry Benign essential hypertension Bilateral foot pain BMI 22.0-22.9, adult BMI 23.0-23.9, adult Borderline abnormal TFTs Bradykinesia Change in bowel habits Changes in vision CKD (chronic kidney disease) Colon cancer screening Constipation Cyst Encounter for Medicare annual wellness exam Encounter for routine adult health examination with abnormal findings Encounter for routine adult health examination without abnormal findings Encounter for special screening examination for neoplasm of prostate Erectile dysfunction Follow up Hearing loss History of CVA in adulthood Hyperlipidemia Hypothyroidism (acquired) Impaired functional mobility, balance, gait, and endurance On intermediate drug therapy Onychomycosis Parkinsonism Positive fecal occult blood test Pre-diabetes 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 right hearing loss Testicular hypofunction Trapezius muscle spasm Vitamin D deficiency Surgical History Surgical History Hx of appendectomy Family History Family History Father Family history of pancreatic cancer Social History Social History Smoking packs per day: 0.5 Smoking cigarettes per day: 10.0 Years smoked: 10 Smoking pack-years: 5.00 Smoking status: Former smoker Tobacco type: cigarettes Smoking end date: 11/13/72 Additional smoking assessment comments: not a heavy smoker Alcohol intake: current Drinks per week: 2 Alcohol use details: socially Substance use: never Substance use type: does not use Living arrangements: with family Occupation/Education: retired Gender identity (if verbalized by the patient): Male Spiritual care concerns: No Anes - Eval Final PreProcedure Day of Procedure 03/13/23 10:22 Patient weight: normal Heart: regular rate and rhythm Lungs: clear to auscultation Airway: Mallampati scale class II Neurological: alert and oriented Last oral intake: >/= 8 hour
[2023-03-13 10:23] LABS: Glucose Point of Care 84 mg/dl (65-105)
--- NOTE | 2023-03-13 10:35 | SUR.OPER ---
EGD: START-1034 END-6. COLONOSCOPY: START-1040 END-1054
[2023-03-13 10:58] VITALS: BP 83/51; PULSE 69; RESP 21; O2SAT 100
[2023-03-13 11:08] VITALS: BP 97/64; PULSE 73; RESP 13; O2SAT 100
[2023-03-13 11:18] VITALS: BP 111/71; PULSE 65; RESP 19; O2SAT 100
--- NOTE | 2023-03-13 11:35 | SUR.PHASEII ---
CBC drawn per Dr. Jeremy eason.
[2023-03-13 11:42] LABS: Hematocrit 43.4 % (42.0-52.0); Hemoglobin 14.5 g/dL (14.0-18.0); Mean Corpuscular HGB Conc 33.4 g/dl (32-36); Mean Corpuscular Hemoglobin 32.2 pg (26-34); Mean Corpuscular Volume 96.2 fl (80-100); Platelet Count Result 218 k/mm3 (150-375); Red Blood Count 4.51 M/mm3 (4.6-6.20); Red Cell Distribution Width 11.9 % (11.5-14.5); White Blood Count 6.5 K/mm3 (4.5-10.0)
== END 2023-03-13 11:41 | disposition home or self-care (01) ==
PROVIDERS: PCP Internal Medicine; Visit Provider Internal Medicine Gastroenterology
PROC: 0DJ08ZZ Inspection of Upper Intestinal Tract, Via Natural or Artificial Opening Endoscopic (ICD-10-PCS; CPT 43235; principal; 2023-03-13 10:45)
DX: K63.5 Polyp of colon (principal); K64.8 Other hemorrhoids; I12.9 Hypertensive chronic kidney disease with stage 1 through stage 4 chronic kidney disease, or unspecified chronic kidney disease; N18.9 Chronic kidney disease, unspecified; E78.5 Hyperlipidemia, unspecified; E03.9 Hypothyroidism, unspecified; G32.0 Subacute combined degeneration of spinal cord in diseases classified elsewhere; R73.03 Prediabetes; Z86.73 Personal history of transient ischemic attack (TIA), and cerebral infarction without residual deficits; Z79.84 Long term (current) use of oral hypoglycemic drugs; Z87.891 Personal history of nicotine dependence
CPT/HCPCS: 45385; 43235; 36415; 82948; 85027; 88305; J2704; J7120

== ENCOUNTER 2023-06-02 09:20 | Outpatient (CLI) | payer MEDICARE, OTHER, SELFPAY ==
--- NOTE | ~2023-06-02 | XR_ITS ---
Clinical Indication: Fatigue PA and lateral views of the chest: Comparison: None Findings: The lungs are clear, without evidence of focal consolidation or pleural effusion. Probable COPD. Cardiomediastinal silhouette is within normal limits. Bones and soft tissues are unremarkable. Impression: COPD. Reviewed, dictated and finalized at location . Impression: COPD.
[2023-06-02 09:53] LABS: Basophils Percent Auto 0.4 % (0.2-1.2); Eosinophils Absolute Auto 0.3 K/mm3 (0-0.3); Eosinophils Percent Auto 5.5 % (0-4.4); Hematocrit 42.8 % (42.0-52.0); Hemoglobin 13.9 g/dL (14.0-18.0); Immature Granulocyte Absolute 0.01 K/mm3 (0.00-0.031); Immature Granulocyte Percent A 0.2 % (0-0.5); Lymphocytes Absolute Auto 1.79 K/mm3 (0.9-3.2); Lymphocytes Percent Auto 36.2 % (18.3-44.2); Mean Corpuscular HGB Conc 32.5 g/dl (32-36); Mean Corpuscular Hemoglobin 31.7 pg (26-34); Mean Corpuscular Volume 97.5 fl (80-100); Mean Platelet Volume 9.3 fl (7.4-10.4); Monocytes Absolute Auto 0.4 K/mm3 (0.1-0.6); Monocytes Percent Auto 7.9 % (2.6-8.5); Neutrophils Absolute Auto 2.5 K/mm3 (1.3-6.7); Neutrophils Percent Auto 49.8 % (45.5-73.1); Platelet Count Result 228 k/mm3 (150-375); Red Blood Count 4.39 M/mm3 (4.6-6.20); Red Cell Distribution Width 12.2 % (11.5-14.5)
== END 2023-06-02 09:21 | disposition home or self-care (01) ==
PROVIDERS: PCP Internal Medicine; Visit Provider Internal Medicine
DX: R53.83 Other fatigue (principal); J44.9 Chronic obstructive pulmonary disease, unspecified
CPT/HCPCS: 36415; 71046; 85025

== ENCOUNTER 2023-06-30 07:28 | Outpatient (CLI) | payer MEDICARE, OTHER, SELFPAY ==
--- NOTE | 2023-06-30 07:32 | ECHO_ITS ---
Patient Info Name: Issa Chatman Age: 83 years : 1940 Gender: Male Ht: 72 in Wt: 180 lbs BSA: 2.04 m2 HR: 66 bpm BP: 108 / 73 mmHg Technical Quality: Fair Exam Date: 06/30/2023 7:51 AM Exam Location: [facility] Patient Status: Outpatient Admit Date: 06/30/2023 Staff Ordering Physician: Raj Stevens MD Foundation Relations Manager: Liliana Serrano RDCS Attending Provider: Raj Stevens MD Referring Physician: Rodney VALDOVINOS; Exam Type: CA echo doppler color flow Study Info Indications Z86.73 - Personal history of transient ischemic attack (TIA), and cerebral infarction without residual deficits Complete two-dimensional, color flow and Doppler transthoracic echocardiogram is performed. Summary 1. Complete two-dimensional, color flow and Doppler transthoracic echocardiogram is performed. 2. Left ventricular chamber dimension is normal. 3. Left ventricular systolic function is normal, estimated at 55-60%. 4. The left ventricular diastolic function is grade I diastolic dysfunction. 5. E/e' 4 is not elevated. 6. Global longitudinal strain is abnormal at -13.7%. 7. The aortic root size at the sinus of Valsalva is borderline dilated at 4.0 cm. Left Ventricle E/e' 4 is not elevated. Global longitudinal strain is abnormal at -13.7%. Left ventricular chamber dimension is normal. Left ventricular systolic function is normal, estimated at 55-60%. The left ventricular diastolic function is grade I diastolic dysfunction. Right Ventricle Right ventricular systolic function is normal and with normal TAPSE 2.3 cm. Right ventricular chamber dimension is normal. Left Atria Left atrial chamber dimension is normal. Right Atria Right atrial chamber dimension is normal. Aortic Valve The aortic valve is trileaflet. There is no aortic valve stenosis. There is no aortic valve regurgitation. Pulmonic Valve There is no pulmonic regurgitation. Mitral Valve There is no mitral valve stenosis. There is no mitral valve regurgitation. Tricuspid Valve There is no tricuspid valve regurgitation. Pericardium/Pleural There is no pericardial effusion. Inferior Vena Cava Normal inferior vena cava with >50% collapse upon inspiration consistent with normal right atrial pressure, 5 mmHg. Aorta The aortic root size at the sinus of Valsalva is borderline dilated at 4.0 cm. Tricuspid Valve Name Value Normal Estimated PAP/RSVP RA Pressure 5 mmHg <=5 Report Signatures
== END 2023-06-30 07:29 | disposition home or self-care (01) ==
LOC: ANHCARD 07:30
PROVIDERS: PCP Internal Medicine; Visit Provider Internal Medicine
DX: R53.83 Other fatigue (principal); I10 Essential (primary) hypertension; Z86.73 Personal history of transient ischemic attack (TIA), and cerebral infarction without residual deficits
CPT/HCPCS: 93306

== ENCOUNTER 2023-09-26 10:19 | Outpatient (CLI) | payer MEDICARE, OTHER, SELFPAY ==
[2023-09-26 18:24] LABS: Alanine Aminotransferase 9 U/L (6-50); Albumin Level 3.7 g/dL (3.5-5.1); Alkaline Phosphatase 52 U/L (38-126); Anion Gap 7 mmol/L (8-16); Aspartate Amino Transferase 58 U/L (17-59); Bilirubin,Total 0.8 mg/dL (0.2-1.3); Blood Urea Nitrogen 13 mg/dL (9-20); Calcium 8.7 mg/dL (8.4-10.2); Carbon Dioxide 27 mmol/L (22-30); Chloride 104 mmol/L (98-107); Cholesterol 135 mg/dL (0-200); Estimated Glomerular Filt Rate 53; Glucose 96 mg/dL (65-110); HDL Direct 38 mg/dL; Potassium 4.6 mmol/L (3.4-5.0); Sodium 138 mmol/L (137-145); Triglycerides 66 mg/dL (<150)
[2023-09-26 18:35] LABS: LDL Cholesterol Direct 76 mg/dL
[2023-09-26 18:54] LABS: Thyroid Stimulating Hormone 0.699 uIU/mL (0.465-4.680)
[2023-09-26 19:13] LABS: Free T4 Free Thyroxine 1.65 ng/mL (0.78-2.19)
[2023-09-26 19:22] LABS: Hemoglobin A1C 5.5 % (<5.7)
== END 2023-09-26 10:20 | disposition home or self-care (01) ==
PROVIDERS: PCP Internal Medicine; Visit Provider Internal Medicine
DX: E78.2 Mixed hyperlipidemia (principal); E03.9 Hypothyroidism, unspecified; R73.03 Prediabetes; I10 Essential (primary) hypertension
CPT/HCPCS: 36415; 80053; 80061; 83036; 84439; 84443

== ENCOUNTER 2023-10-09 12:31 | Outpatient (CLI) | payer MEDICARE, OTHER, SELFPAY ==
[2023-10-09 19:40] LABS: Prostate Specific Antigen 2.2 ng/mL (< OR = 4.0)
[2023-10-13 08:39] LABS: Testosterone Total 234 ng/dL (250-1100)
== END 2023-10-09 12:32 | disposition home or self-care (01) ==
LOC: ANHGOSHLAB 12:33
PROVIDERS: PCP Internal Medicine; Visit Provider Internal Medicine
DX: E29.1 Testicular hypofunction (principal); Z12.5 Encounter for screening for malignant neoplasm of prostate
CPT/HCPCS: 36415; 84153; 84403; G0103

== ENCOUNTER 2024-02-13 12:53 | Outpatient (CLI) | payer MEDICARE, OTHER, SELFPAY ==
[2024-02-13 14:34] LABS: Alanine Aminotransferase 9 U/L (6-50); Albumin Level 3.7 g/dL (3.5-5.1); Alkaline Phosphatase 52 U/L (38-126); Anion Gap 3 mmol/L (4-12); Aspartate Amino Transferase 38 U/L (17-59); Blood Urea Nitrogen 19 mg/dL (9-20); Carbon Dioxide 30 mmol/L (22-30); Chloride 102 mmol/L (98-107); Cholesterol 121 mg/dL (0-200); Estimated Glomerular Filt Rate 49; Glucose 99 mg/dL (65-110); HDL Direct 41 mg/dL; Potassium 4.5 mmol/L (3.4-5.0); Sodium 135 mmol/L (137-145); Triglycerides 93 mg/dL (<150)
[2024-02-13 14:41] LABS: Basophils Percent Auto 0.3 % (0.2-1.2); Eosinophils Absolute Auto 0.2 K/mm3 (0-0.3); Hematocrit 45.8 % (42.0-52.0); Hemoglobin 14.5 g/dL (14.0-18.0); Immature Granulocyte Absolute 0.01 K/mm3 (0.00-0.031); Immature Granulocyte Percent A 0.1 % (0-0.5); Lymphocytes Percent Auto 31.1 % (18.3-44.2); Mean Corpuscular HGB Conc 31.7 g/dl (32-36); Mean Corpuscular Hemoglobin 31.5 pg (26-34); Mean Corpuscular Volume 99.6 fl (80-100); Mean Platelet Volume 9.5 fl (7.4-10.4); Monocytes Absolute Auto 0.5 K/mm3 (0.1-0.6); Monocytes Percent Auto 7.3 % (2.6-8.5); Neutrophils Absolute Auto 3.9 K/mm3 (1.3-6.7); Neutrophils Percent Auto 58.2 % (45.5-73.1); Platelet Count Result 257 k/mm3 (150-375); Red Cell Distribution Width 12.5 % (11.5-14.5); White Blood Count 6.8 K/mm3 (4.5-10.0)
[2024-02-13 14:46] LABS: LDL Cholesterol Direct 64 mg/dL
[2024-02-13 15:44] LABS: Free T4 Free Thyroxine 1.22 ng/mL (0.78-2.19); Vitamin D 25 Hydroxy 70.8 ng/mL
[2024-02-16 12:17] LABS: Testosterone Total 536 ng/dL (250-1100)
== END 2024-02-13 12:54 | disposition home or self-care (01) ==
LOC: ANHGOSHLAB 12:55
PROVIDERS: PCP Internal Medicine; Visit Provider Internal Medicine
DX: E55.9 Vitamin D deficiency, unspecified (principal); E03.9 Hypothyroidism, unspecified; E29.1 Testicular hypofunction; I12.9 Hypertensive chronic kidney disease with stage 1 through stage 4 chronic kidney disease, or unspecified chronic kidney disease; N18.2 Chronic kidney disease, stage 2 (mild)
CPT/HCPCS: 36415; 80053; 80061; 82306; 84403; 84439; 84443; 85025

== ENCOUNTER 2024-03-20 08:58 | Outpatient (CLI) | payer MEDICARE, OTHER, SELFPAY ==
[2024-03-20 21:12] LABS: Anion Gap 7 mmol/L (4-12); Blood Urea Nitrogen 17 mg/dL (9-20); Calcium 8.9 mg/dL (8.4-10.2); Carbon Dioxide 26 mmol/L (22-30); Chloride 105 mmol/L (98-107); Estimated Glomerular Filt Rate 49; Glucose 106 mg/dL (65-110); Potassium 4.5 mmol/L (3.4-5.0); Sodium 138 mmol/L (137-145)
== END 2024-03-20 08:59 | disposition home or self-care (01) ==
LOC: ANHGOSHLAB 09:01
PROVIDERS: PCP Internal Medicine; Visit Provider Internal Medicine
DX: N18.9 Chronic kidney disease, unspecified (principal)
CPT/HCPCS: 36415; 80048

== ENCOUNTER 2024-06-25 08:09 | Outpatient (CLI) | payer MEDICARE, OTHER, SELFPAY ==
[2024-06-25 19:32] LABS: Hemoglobin A1C 5.9 % (<5.7)
[2024-06-25 19:34] LABS: Free T4 Free Thyroxine 1.48 ng/mL (0.78-2.19)
[2024-06-25 19:43] LABS: Anion Gap 9 mmol/L (4-12); Blood Urea Nitrogen 19 mg/dL (9-20); Calcium 8.5 mg/dL (8.4-10.2); Carbon Dioxide 26 mmol/L (22-30); Chloride 101 mmol/L (98-107); Cholesterol 118 mg/dL (0-200); Estimated Glomerular Filt Rate 53; Glucose 109 mg/dL (65-110); HDL Direct 49 mg/dL; Potassium 4.3 mmol/L (3.4-5.0); Sodium 136 mmol/L (137-145); Triglycerides 66 mg/dL (<150)
[2024-06-25 19:54] LABS: LDL Cholesterol Direct 51 mg/dL
== END 2024-06-25 08:10 | disposition home or self-care (01) ==
LOC: ANHGOSHLAB 08:10
PROVIDERS: PCP Internal Medicine; Visit Provider Internal Medicine
DX: E03.9 Hypothyroidism, unspecified (principal); R73.03 Prediabetes; E78.5 Hyperlipidemia, unspecified; I12.9 Hypertensive chronic kidney disease with stage 1 through stage 4 chronic kidney disease, or unspecified chronic kidney disease; N18.2 Chronic kidney disease, stage 2 (mild)
CPT/HCPCS: 36415; 80048; 80061; 83036; 84439; 84443

== ENCOUNTER 2024-11-21 09:24 | Outpatient (CLI) | payer MEDICARE, OTHER, SELFPAY ==
[2024-11-21 20:44] LABS: Alanine Aminotransferase 16 U/L (6-50); Albumin Level 3.8 g/dL (3.5-5.1); Alkaline Phosphatase 59 U/L (38-126); Anion Gap 4 mmol/L (4-12); Aspartate Amino Transferase 27 U/L (17-59); Bilirubin,Total 0.6 mg/dL (0.2-1.3); Blood Urea Nitrogen 25 mg/dL (9-20); Carbon Dioxide 30 mmol/L (22-30); Chloride 102 mmol/L (98-107); Cholesterol 137 mg/dL (0-200); Estimated Glomerular Filt Rate 57; Glucose 100 mg/dL (65-110); HDL Direct 54 mg/dL; Potassium 4.9 mmol/L (3.4-5.0); Sodium 136 mmol/L (137-145); Triglycerides 50 mg/dL (<150)
[2024-11-21 20:50] LABS: Basophils Percent Auto 0.3 % (0.2-1.2); Eosinophils Absolute Auto 0.2 K/mm3 (0-0.3); Eosinophils Percent Auto 3.5 % (0-4.4); Hematocrit 40.3 % (42.0-52.0); Hemoglobin 13.2 g/dL (14.0-18.0); Immature Granulocyte Absolute 0.03 K/mm3 (0.00-0.031); Immature Granulocyte Percent A 0.4 % (0-0.5); Lymphocytes Absolute Auto 1.95 K/mm3 (0.9-3.2); Lymphocytes Percent Auto 28.7 % (18.3-44.2); Mean Corpuscular HGB Conc 32.8 g/dl (32-36); Mean Corpuscular Hemoglobin 32.4 pg (26-34); Mean Corpuscular Volume 98.8 fl (80-100); Mean Platelet Volume 9.6 fl (7.4-10.4); Monocytes Absolute Auto 0.4 K/mm3 (0.1-0.6); Neutrophils Absolute Auto 4.2 K/mm3 (1.3-6.7); Neutrophils Percent Auto 61.1 % (45.5-73.1); Platelet Count Result 249 k/mm3 (150-375); Red Blood Count 4.08 M/mm3 (4.6-6.20); Red Cell Distribution Width 12.3 % (11.5-14.5); White Blood Count 6.8 K/mm3 (4.5-10.0)
[2024-11-21 21:04] LABS: LDL Cholesterol Direct 61 mg/dL
[2024-11-21 21:18] LABS: Hemoglobin A1C 6.1 % (<5.7)
== END 2024-11-21 09:25 | disposition home or self-care (01) ==
LOC: ANHGOSHLAB 09:25
PROVIDERS: PCP Internal Medicine; Visit Provider Internal Medicine
DX: E78.5 Hyperlipidemia, unspecified (principal); E03.9 Hypothyroidism, unspecified; R73.03 Prediabetes; E55.9 Vitamin D deficiency, unspecified; I12.9 Hypertensive chronic kidney disease with stage 1 through stage 4 chronic kidney disease, or unspecified chronic kidney disease; N18.2 Chronic kidney disease, stage 2 (mild)
CPT/HCPCS: 36415; 80053; 80061; 82306; 83036; 84439; 84443; 85025

== ENCOUNTER 2024-11-27 10:43 | Outpatient (CLI) | payer MEDICARE, OTHER, SELFPAY ==
--- NOTE | ~2024-11-27 | XR_ITS ---
XR shoulder LT min 2V Ordering provider: Raj Stevens MD History: . M25.512 - Pain in left shoulder . Comparison: None. FINDINGS: BONES: No acute fracture or dislocation. JOINT SPACES: The acromioclavicular joint is normal. The glenohumeral joint is normal. SOFT TISSUES: Normal. IMPRESSION: No acute osseous abnormality left shoulder. Reviewed, dictated and finalized at location A. [employer]
== END 2024-11-27 10:44 | disposition home or self-care (01) ==
PROVIDERS: PCP Internal Medicine; Visit Provider Internal Medicine
DX: M25.512 Pain in left shoulder (principal)
CPT/HCPCS: 73030

== ENCOUNTER 2024-12-01 19:22 | Inpatient (IN) | payer MEDICARE, OTHER, SELFPAY ==
[2024-12-01] VITALS (20 sets, daily range): BP systolic 135–156; BP diastolic 74–96; PULSE 83–99; RESP 13–23; TEMP 36.8–37.3; O2SAT 97–99; BMI 22.8
--- NOTE | ~2024-12-01 | XR_ITS ---
Exam: Abdomen 1V HISTORY: constipation COMPARISON: None. TECHNIQUE: Supine images of the abdomen FINDINGS: Gaseous distention of the stomach. Fecal stasis within the right colon, splenic flexure of the left. Significant fecal stasis distending the rectum. No free air. No significantly dilated small bowel. IMPRESSION: Findings consistent with fecal impaction, as detailed above. Reviewed, dictated and finalized at location A. [employer]ICIAL ST[employer] APPLICATOR
--- NOTE | ~2024-12-01 | XR_ITS ---
EXAMINATION: XR chest 1V portable Exam Date/Time: 12/01/2024 19:35 [employer]FER HISTORY: infection Comparison: 06/02/2023. RESULT: Lines, tubes, and devices: None. Lungs and pleura: Clear. Cardiomediastinal silhouette: Stable. Other: No acute osseous or upper abdominal finding. IMPRESSION: No acute cardiopulmonary process. Reviewed, dictated and finalized at location K. T METAL ROOFER
--- NOTE | 2024-12-01 19:50 | ECG_ITS ---
Test Date: 2024-12-01 20:31:36 Measurements Intervals [place] Rate: 88 P: 61 [place]: 172 QRS: -15 QRSD: 95 T: 9 QT: 349 QTc: 423 Interpretive Statements SINUS RHYTHM No previous ECG available for comparison Electronically Signed On 12-02-2024 18:10:48 SWITCH TENDER by Audie Rock M.D.
--- NOTE | 2024-12-01 19:51 | ED.GENADULT ---
HPI - General Adult General Chief complaint: Weakness Stated complaint: weakness/flu like symptoms Time Seen by Provider: 12/01/24 19:28 History of Present Illness HPI narrative: Patient is an 84-year-old male who presents to the emergency department this evening from [facility] with complaint of generalized weakness. Patient states symptoms started yesterday and he feels generally weak specially when trying to get out of bed. Patient denies any fevers or chills at home. Admits that he has been having some nasal congestion, denies any cough, rhinorrhea, shortness of breath, chest pain, nausea vomiting or abdominal pain. Patient also denies any urinary symptoms including dysuria or hematuria. No additional symptoms or concerns at this time. Related Data Home Medications ?Medication ?Instructions ?Recorded ?Confirmed ?Last Taken ?Type multivitamin 1 tablet PO DAILY 09/29/20 11/27/24 03/12/23 History omega-3 fatty acids-fish oil 360 2 cap PO DAILY 02/20/24 11/27/24 Unknown History mg-1,200 mg capsule Allergies Allergy/AdvReac Type Severity Reaction Status Date / Time No Known Allergies Allergy Unknown Verified 11/27/24 10:02 Review of Systems Review of Systems: All systems are reviewed and are negative unless stated otherwise in the HPI. [facility] Past Medical History Medical History Left shoulder pain Skin tag History of skin cancer Fatigue Diplopia Nocturia Bilateral foot pain Positive fecal occult blood test Parkinsonism Bradykinesia Trapezius muscle spasm Movement disorder Onychomycosis Cyst Sudden right hearing loss Impaired functional mobility, balance, gait, and endurance Encounter for routine adult health examination with abnormal findings Hypothyroidism (acquired) History of CVA in adulthood Follow up Dizziness Ataxia Colon cancer screening Encounter for Medicare annual wellness exam Constipation Change in bowel habits CKD (chronic kidney disease) Vitamin D deficiency Abnormal finding of blood chemistry BMI 22.0-22.9, adult Borderline abnormal TFTs BMI 23.0-23.9, adult 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 Hearing loss Changes in vision Erectile dysfunction Testicular hypofunction Encounter for routine adult health examination without abnormal findings On mcc drug therapy Hyperlipidemia Benign essential hypertension Pre-diabetes Surgical History Surgical History Hx of appendectomy Family History Family History Father Family history of pancreatic cancer Social History Social History Smoking packs per day: 0.5 Smoking cigarettes per day: 10.0 Years smoked: 10 Smoking pack-years: 5.00 Smoking status: Former smoker Tobacco type: cigarettes Smoking end date: 11/13/72 Additional smoking assessment comments: not a heavy smoker Alcohol intake: current Drinks per week: 2 Alcohol use details: socially Substance use: never Substance use type: does not use Living arrangements: with family Occupation/Education: retired Gender identity (if verbalized by the patient): Male Spiritual care concerns: No Exam Narrative: General: Alert, awake, afebrile, in no acute distress. HEENT: PERRL, no rhinorrhea, no post nasal drip, oropharynx clear. Neck: Trachea midline, no JVD, no lymphadenopathy. Cardiovascular: Regular rate and rhythm, no murmurs, rubs or gallops, no peripheral edema. Respiratory: Clear to auscultation bilaterally, no tachypnea, no wheezing, no rhonchi, no rubs, no respiratory distress. Abdomen: Soft, nontender, nondistended, no rebound, no guarding, no peritoneal signs. Musculoskeletal: No joint swelling or deformity, normal muscle tone, intact bilateral hip flexions any extensions although patient does appear to be generally weak. Skin: No rashes or petechia, no signs of infection. Psychiatric: Alert and oriented, normal behavior and judgment for situation. Neurological: Alert and oriented to person, place, and time. Follows all commands. No focal deficits, speech is clear and fluent. Course Vital Signs Vital signs: Vital Signs Temperature 98.2 F 12/01/24 19:20 Pulse Rate 97 12/01/24 19:20 Respiratory Rate 18 12/01/24 19:20 Blood Pressure 149/87 H 12/01/24 19:20 Pulse Oximetry 98 12/01/24 19:20 Oxygen Delivery Room Air 12/01/24 19:20 Temperature 98.2 F 12/01/24 19:20 Pulse Rate 87 12/01/24 21:01 Respiratory Rate 13 12/01/24 21:01 Blood Pressure 135/76 12/01/24 21:00 Pulse Oximetry 99 12/01/24 21:01 Oxygen Delivery Room Air 12/01/24 19:20 Medical Decision Making MDM Narrative Medical decision making narrative: The patient was evaluated by myself in the emergency department. History is obtained from patient who is an independent historian and physical exam was performed. External medical records were reviewed at this time. IV was established and pertinent tests were ordered. EKG was obtained which revealed sinus rhythm at a rate of 88 beats per minute. No ST changes, T wave inversions or evidence of acute ischemia. EKG was independently interpreted by me and is currently pending official cardiology read. Laboratory results obtained revealing no acute process. Viral swabs did return back positive for influenza A. At this time patient was administered 1st dose of Tamiflu 75 mg and was informed that he will need to continue taking this for the next 5 days and patient is agreeable. Imaging studies obtained included CXR which was independently interpreted by me revealing no acute cardiopulmonary process, which is pending final radiology interpretation. Differential diagnosis considerations include acute viral syndrome, infectious process such as pneumonia/UTI, dehydration, electrolyte derangements. Comorbidities impacting this visit include none. I have evaluated and discussed social determinants of health with the patient that could potentially impact subsequent diagnosis and treatment plans. At this time, we did attempt to ambulate the patient using a walker, however, patient failed his ambulatory trial to generalized weakness. He does reside in an independent living facility and has no help. We did contact the patient's son to see if he is willing to pay come up and help care for him for the next few days until he regained his strength, however, this and informed us that the whole family is out with the flu and they are unable to care for him. On repeat assessment of the patient, reevaluation revealed that the patient is doing well and is in no acute distress. Patient symptoms have improved since he arrived to our emergency department. Repeat vital signs were all reviewed and noted to be stable. Differential diagnosis and treatment plan were discussed with the patient at bedside. Patient agrees with discussion and after shared medical decision making agrees with admission. All questions were answered to the patient's satisfaction. Case was discussed with the on-call nurse practitioner Anna at 2140 who accepted admission. Vital Signs Vital Signs: Vital Signs Temperature 98.2 F 12/01/24 19:20 Pulse Rate 97 12/01/24 19:20 Respiratory Rate 18 12/01/24 19:20 Blood Pressure 149/87 H 12/01/24 19:20 Pulse Oximetry 98 12/01/24 19:20 Oxygen Delivery Room Air 12/01/24 19:20 Temperature 98.2 F 12/01/24 19:20 Pulse Rate 87 12/01/24 21:01 Respiratory Rate 13 12/01/24 21:01 Blood Pressure 135/76 12/01/24 21:00 Pulse Oximetry 99 12/01/24 21:01 Oxygen Delivery Room Air 12/01/24 19:20 Lab Data 12/01/24 20:22 12/01/24 20:22 Labs: Lab Results 12/01/24 12/01/24 Range/Units 19:40 20:22 WBC 7.5 (4.5-10.0) K/mm3 RBC 3.94 L (4.6-6.20) M/mm3 Hgb 12.8 L (14.0-18.0) g/dL Hct 38.3 L (42.0-52.0) % MCV 97.2 (80-100) fl MCH 32.5 (26-34) pg MCHC 33.4 (32-36) g/dl RDW 12.2 (11.5-14.5) % Plt Count 196 (150-375) k/mm3 MPV 8.9 (7.4-10.4) fl Immature Gran % (Auto) 0.4 (0-0.5) % Neut % (Auto) 82.4 H (45.5-73.1) % Lymph % (Auto) 8.3 L (18.3-44.2) % [place] % (Auto) 8.4 (2.6-8.5) % Eos % (Auto) 0.4 (0-4.4) % Baso % (Auto) 0.1 L (0.2-1.2) % Lymph # (Auto) 0.62 L (0.9-3.2) K/mm3 [place] # (Auto) 0.6 (0.1-0.6) K/mm3 Eos # (Auto) 0.0 (0-0.3) K/mm3 Baso # (Auto) 0.0 (0.0-0.1) K/mm3 Abs Immat Gran (auto) 0.03 (0.00-0.031) K/mm3 Absolute Neuts (auto) 6.2 (1.3-6.7) K/mm3 Absolute Nucleated RBC 0.000 (0.0-0.012) K/mm3 Nucleated RBC % 0.0 (0.0-0.2) % Sodium 136 L (137-145) mmol/L Potassium 4.6 (3.4-5.0) mmol/L Chloride 101 (98-107) mmol/L Carbon Dioxide 29 (22-30) mmol/L Anion Gap 6 (4-12) mmol/L BUN 24 H (9-20) mg/dL Creatinine 1.16 (0.7-1.3) mg/dL Estim Creat Clear Calc 51 ml/min Estimated GFR 60 (59 - ) Glucose 120 H (65-110) mg/dL Calcium 9.1 (8.4-10.2) mg/dL Magnesium 2.0 (1.6-2.3) mg/dL Total Bilirubin 0.6 (0.2-1.3) mg/dL AST 35 (17-59) U/L ALT 54 H (6-50) U/L Alkaline Phosphatase 66 (38-126) U/L Total Protein 7.0 (6.3-8.2) g/dL Albumin 4.0 (3.5-5.1) g/dL Influenza A (RT-PCR) Positive A (Negative) Influenza B (RT-PCR) Negative (Negative) SARS-CoV-2 RNA (RT-PCR) Negative (Negative) Discharge Plan Discharge Clinical Impression: Acute viral syndrome, Influenza A Patient Disposition: Still a Patient Condition: Improved Instructions: Influenza (DC) Additional Instructions: Please follow-up with your family doctor within the next 3-5 days. Return to the emergency department if any new or worsening symptoms develop. Take the prescribed Tamiflu as instructed for your influenza A. Patient Language: Mongolian Prescriptions: New oseltamivir [Tamiflu] 30 mg capsule 30 mg PO BID 5 Days Qty: 9 0RF No Action omega-3 fatty acids-fish oil 360-1,200 mg capsule 2 cap PO DAILY multivitamin Tablet 1 tablet PO DAILY atorvastatin 20 mg tablet See Rx Instructions .ROUTE .COMPLEX Qty: 90 1RF Dose Instruction: TAKE 1/2 TABLET BY MOUTH EVERY DAY Rx Instructions: TAKE 1/2 TABLET BY MOUTH EVERY DAY metformin 500 mg tablet See Rx Instructions .ROUTE .COMPLEX Qty: 90 3RF Dose Instruction: TAKE 1 TABLET DAILY Rx Instructions: TAKE 1 TABLET DAILY carbidopa-levodopa 25-100 mg tablet See Rx Instructions .ROUTE .COMPLEX Qty: 270 1RF Dose Instruction: TAKE 1 TABLET BY MOUTH THREE TIMES DAILY Rx Instructions: TAKE 1 TABLET BY MOUTH THREE TIMES DAILY tamsulosin 0.4 mg capsule See Rx Instructions .ROUTE .COMPLEX Qty: 90 1RF Dose Instruction: TAKE 1 CAPSULE DAILY Rx Instructions: TAKE 1 CAPSULE DAILY levothyroxine [Synthroid] 75 mcg tablet See Rx Instructions .ROUTE .COMPLEX Qty: 90 2RF Dose Instruction: TAKE 1 TABLET DAILY Rx Instructions: TAKE 1 TABLET DAILY lisinopril 5 mg tablet See Rx Instructions .ROUTE .COMPLEX Qty: 90 1RF Dose Instruction: TAKE 1 TABLET DAILY Rx Instructions: TAKE 1 TABLET DAILY Follow-up/Referrals: Raj Stevens MD [Primary Care Provider] - 3 Days Time of Disposition: 20:44
[2024-12-01 20:20] LABS: Influenza A QL RT-PCR Positive (Negative); Influenza B QL RT-PCR Negative (Negative); SARS-CoV-2 RNA PCR Negative (Negative)
[2024-12-01 20:28] LABS: Basophils Percent Auto 0.1 % (0.2-1.2); Eosinophils Percent Auto 0.4 % (0-4.4); Hematocrit 38.3 % (42.0-52.0); Hemoglobin 12.8 g/dL (14.0-18.0); Immature Granulocyte Absolute 0.03 K/mm3 (0.00-0.031); Immature Granulocyte Percent A 0.4 % (0-0.5); Lymphocytes Absolute Auto 0.62 K/mm3 (0.9-3.2); Lymphocytes Percent Auto 8.3 % (18.3-44.2); Mean Corpuscular HGB Conc 33.4 g/dl (32-36); Mean Corpuscular Hemoglobin 32.5 pg (26-34); Mean Corpuscular Volume 97.2 fl (80-100); Mean Platelet Volume 8.9 fl (7.4-10.4); Monocytes Absolute Auto 0.6 K/mm3 (0.1-0.6); Monocytes Percent Auto 8.4 % (2.6-8.5); Neutrophils Absolute Auto 6.2 K/mm3 (1.3-6.7); Neutrophils Percent Auto 82.4 % (45.5-73.1); Platelet Count Result 196 k/mm3 (150-375); Red Blood Count 3.94 M/mm3 (4.6-6.20); Red Cell Distribution Width 12.2 % (11.5-14.5); White Blood Count 7.5 K/mm3 (4.5-10.0)
[2024-12-01 20:42] LABS: Alanine Aminotransferase 54 U/L (6-50); Alkaline Phosphatase 66 U/L (38-126); Anion Gap 6 mmol/L (4-12); Aspartate Amino Transferase 35 U/L (17-59); Bilirubin,Total 0.6 mg/dL (0.2-1.3); Blood Urea Nitrogen 24 mg/dL (9-20); Calcium 9.1 mg/dL (8.4-10.2); Carbon Dioxide 29 mmol/L (22-30); Chloride 101 mmol/L (98-107); Estimated CRCL calculation 51 ml/min; Estimated Glomerular Filt Rate 60; Glucose 120 mg/dL (65-110); Potassium 4.6 mmol/L (3.4-5.0); Sodium 136 mmol/L (137-145)
[2024-12-01] MEDS: OSELTAMIVIR PHOSPHATE 30 MG CAPSULE PO (21:01)
--- NOTE | 2024-12-01 21:15 | PC.NURSE ---
Patient signed discharge papers at 2104. This RN called patients son, Brayan, to notifiy of patients discharge and patients request to call for ride home. Brayan states he also has the flu and that the patient is on the independent side and they can't help him. I don't know how it's going to work cause he did not sign and papers saying they can help him. They don't have a wheelchair for him cause he is on the independent side. Brayan requests patient to be admitted due to lack of help at the facility. This RN informed him that the patient signed his discharge papers and that the ERP states there is not enough criteria for admission. This RN and ERP discussed patients situation, and plan is to see if patient can ambulate with walker and if unable to do so, will attempt for admission. This RN spoke with Brayan again and Brayan verbalized understanding and also states he will contact [facility] to see what options are available for the patient. This RN informed Brayan that he will be called back with update on status and plan of care.
--- NOTE | 2024-12-01 21:33 | PC.NURSE ---
This RN and another RN attempted to ambulate patient with walker. Patient was unable to lift himself from the stretcher to sit at the side of the bed. Patient states I am too weak, and I can't walk. This RN encouraged patient and patient was able to lift legs off stretcher but unable to move them without this RN doing so for him. Patient then stated he needed to use the bathroom and states how am I going to do that? I can't get up? This RN assisted patient in using urinal. Patient states I guess I can't really go home since I can't even go pee by myself. This RN informed ERP and durability technician that patient was unable to ambulate or perform any self care by himself or use the bathroom without assistance.
--- NOTE | 2024-12-01 21:48 | PC.NURSE ---
2146 This RN called Brayan, patients son again to inform that the patient was unable to ambulate or even use the bathroom by himself. This RN informed Brayan that the patient will be admitted. Brayan verbalized understanding and stated that he will follow up with Adela[facility] to see more options for patient in the morning when the DON is in the office.
--- NOTE | 2024-12-01 23:16 | PM.IMHP ---
H&P: HPI History of Present Illness Date/Time: 12/01/24 23:15 Chief Complaint: Weakness. Narrative: This is a pleasant 84-year-old male with Parkinson, hypertension, hyperlipidemia, type 2 diabetes mellitus, hypothyroidism, and benign prostatic hyperplasia who presented to the emergency department via EMS from in [facility] for evaluation of weakness. The patient provides the following history. He has not been feeling well for couple of days with symptoms to include generalized weakness, body aches, fever, sinus congestion, and mild nonproductive cough. He reports having 3 falls today which he believes is due to generalized weakness in addition to the fact that he has been using a walker today which he does not typically use. He did not sustain any significant injuries in the falls and there was no head trauma or loss of consciousness. He denies headache, neck ache, vertigo, syncope, near syncope, chest pain, pleuritic pain, shortness of breath, abdominal pain, nausea, vomiting, diarrhea, and dysuria. Family members have had similar symptoms. In the ED: He was afebrile on arrival with stable vital signs. Labs are significant for WBC count of 7.5, hemoglobin 12.8 sodium 136, BUN 24, glucose 120. He tested positive for influenza A. Chest x-ray showed no acute cardiopulmonary process. He was given 30 mg oseltamivir. He attempted to ambulate but was unable to get up to the walker without a 1 person assist and he did not do well while ambulating and he is being admitted in this setting as he lives independently and family members are not able to help care for him at this time as they also have the flu. Review of Systems Review of Systems: 12 systems were reviewed and are negative except for as per HPI. 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 Code status: Full code. Smoking packs per day: 0.5 Smoking cigarettes per day: 10.0 Years smoked: 10 Smoking pack-years: 5.00 Smoking status: Former smoker Tobacco type: cigarettes Smoking end date: 11/13/72 Alcohol intake: current Drinks per week: 2 Alcohol use details: social alcohol use in moderation Substance use: never Substance use type: does not use Do You Feel Safe in your Home?: Yes Lack of Transportation: No Lack of Food: Never True Current Housing: I Have Housing Concerned About Future Housing: No Difficulty Paying Gas/Electric Bills: No Difficulty Paying for Meds: No Currently Unemployed: No Education: Master's Degree or Higher Difficulty w/ Childcare or Family Care: No Living arrangements: [facility] Additional living arrangements comments: Lives alone in independent living at [facility]. Occupation/Education: retired Additional occupation/education comments: Retired [employer]. Spiritual care concerns: No Meds Home Medications and Allergies Home Medications ?Medication ?Instructions ?Recorded ?Confirmed ?Type multivitamin 1 tablet PO DAILY 09/29/20 11/27/24 History atorvastatin 20 mg tablet See Rx Instructions .Route 10/24/23 11/27/24 Rx .COMPLEX #90 tabs omega-3 fatty acids-fish oil 360 2 cap PO DAILY 02/20/24 11/27/24 History mg-1,200 mg capsule metformin 500 mg tablet See Rx Instructions .Route 04/02/24 11/27/24 Rx .COMPLEX #90 tabs carbidopa 25 mg-levodopa 100 mg See Rx Instructions .Route 07/18/24 11/27/24 Rx tablet .COMPLEX #270 tabs tamsulosin 0.4 mg capsule See Rx Instructions .Route 10/23/24 11/27/24 Rx .COMPLEX #90 caps levothyroxine 75 mcg tablet See Rx Instructions .Route 11/04/24 11/27/24 Rx (Synthroid) .COMPLEX #90 tabs lisinopril 5 mg tablet See Rx Instructions .Route 11/27/24 11/27/24 Rx .COMPLEX #90 tabs oseltamivir 30 mg capsule (Tamiflu) 30 mg PO BID 5 days #9 caps 12/01/24 Rx Allergies Allergy/AdvReac Type Severity Reaction Status Date / Time No Known Allergies Allergy Unknown Verified 11/27/24 10:02 Vital Signs Vital Signs - 24 hr 12/01/24 19:20 12/01/24 19:29 12/01/24 19:30 Temperature 98.2 F Pulse Rate 97 99 95 Respiratory Rate 18 14 16 Blood Pressure 149/87 H 142/96 H Pulse Oximetry 98 98 99 Oxygen Delivery Room Air 12/01/24 19:31 12/01/24 19:45 12/01/24 20:00 Temperature Pulse Rate 96 86 87 Respiratory Rate 17 16 15 Blood Pressure 143/80 H Pulse Oximetry 99 98 97 Oxygen Delivery 12/01/24 20:01 12/01/24 20:15 12/01/24 20:30 Temperature Pulse Rate 88 85 86 Respiratory Rate 16 15 23 H Blood Pressure 140/74 Pulse Oximetry 98 98 99 Oxygen Delivery 12/01/24 20:31 12/01/24 20:45 12/01/24 21:00 Temperature Pulse Rate 86 83 86 Respiratory Rate 15 17 15 Blood Pressure 135/76 Pulse Oximetry 99 99 99 Oxygen Delivery 12/01/24 21:01 12/01/24 21:54 12/01/24 22:00 Temperature Pulse Rate 87 92 96 Respiratory Rate 13 18 19 Blood Pressure 148/87 H Pulse Oximetry 99 97 Oxygen Delivery 12/01/24 22:01 12/01/24 22:15 12/01/24 22:39 Temperature Pulse Rate 94 88 99 Respiratory Rate 18 15 20 Blood Pressure 151/78 H Pulse Oximetry 99 98 99 Oxygen Delivery 12/01/24 23:15 Temperature 99.2 F Pulse Rate 92 Respiratory Rate 20 Blood Pressure 156/82 H Pulse Oximetry 99 Oxygen Delivery Exam Narrative: General: Mildly ill-appearing elderly gentleman the semi-Lopez position in bed. Weight: 80.8 kg. BMI: 22.9. HEENT: Normocephalic, atraumatic. PERRL, EOMI. Sclera anicteric. Tacky mucous membranes. Oropharynx is clear. Neck: Supple. Respiratory: Lungs are clear to auscultation bilaterally. Cardiovascular: Regular rate and rhythm with S1-S2. Gastrointestinal: Abdomen is soft, nontender, and nondistended with positive bowel sounds. Bladder feels a bit distended. Skin: Warm and dry. Small abrasions on the knees. Extremities: No cyanosis, clubbing, or edema. Radial and pedal pulses intact. Neurological: Alert. Cranial nerves 2-12 are grossly intact. No gross focal deficits to casual conversation. Psychiatric: Pleasant and cooperative with normal mood and affect. H&P: Results Labs Labs: Short CBC 12/01/24 Range/Units 20:22 WBC 7.5 (4.5-10.0) K/mm3 Hgb 12.8 L (14.0-18.0) g/dL Hct 38.3 L (42.0-52.0) % Plt Count 196 (150-375) k/mm3 BMP 12/01/24 20:22 Sodium 136 L Potassium 4.6 Chloride 101 Carbon Dioxide 29 BUN 24 H Creatinine 1.16 Glucose 120 H Calcium 9.1 Liver Function 12/01/24 Range/Units 20:22 Total Bilirubin 0.6 (0.2-1.3) mg/dL AST 35 (17-59) U/L ALT 54 H (6-50) U/L Alkaline Phosphatase 66 (38-126) U/L Albumin 4.0 (3.5-5.1) g/dL Impressions Chest X-Ray 12/01/24 19:51 IMPRESSION: No acute cardiopulmonary process. Assessment and Plan Assessment and plan (1) Influenza A: Code(s): J10.1 - Influenza due to other identified influenza virus with other respiratory manifestations Status: Acute (2) Unsteady gait: Code(s): R26.81 - Unsteadiness on feet Status: Acute (3) Generalized weakness: Code(s): R53.1 - Weakness Status: Acute (4) Benign essential hypertension: Code(s): I10 - Essential (primary) hypertension Status: Chronic (5) Hypothyroidism (acquired): Code(s): E03.9 - Hypothyroidism, unspecified Status: Acute (6) Chronic kidney disease: Code(s): N18.9 - Chronic kidney disease, unspecified Status: Acute (7) Parkinsonism: Qualifiers: Parkinsonism type: unspecified Qualified Code(s): G20 - Parkinson's disease Code(s): G20 - Parkinson's disease Status: Acute (8) Benign prostatic hyperplasia: Code(s): N40.0 - Benign prostatic hyperplasia without lower urinary tract symptoms Status: Acute Plan The patient presented to the emergency department for evaluation of weakness and flu symptoms as detailed in HPI. Labs, imaging, EKG, and all reports were personally reviewed. He tested positive for influenza A and has been started on oseltamivir. He admits that he is weaker at baseline which he believes is due to parkinsonism and the flu has made him increasingly weak. He was unable to get up to the walker without a 1 person assist and his gait was very unsteady in the ED and he is being admitted in this setting as he is not safe to be discharged home where he lives alone in independent living. Once he is feeling better he will need PT/OT. Initiate fall precautions. He looks a bit dry on exam and will be hydrated overnight. Bladder feels a distended and we will monitor bladder scan. Continue tamsulosin. Blood pressures were reviewed and they are stable. Recent A1c was 6.1%. Hold metformin while hospitalized. The rest of his home medications will be reviewed and resumed as appropriate. Findings and treatment plan were discussed with the patient. Questions were solicited and answered to satisfaction. The patient's medical management will be taken over by the hospitalist team in a.m. Quality VTE Prophylaxis VTE prophylaxis: pharmacologic ordered Hospitalist [facility] Advance Care Plan I have confirmed that the patient's Advanced Care Plan is present, code status is documented, or surrogate decision maker is listed in patient medical record.: Yes Medication Reconciliation I have utilized all available resources to obtain, update and review the patients current medications (includes all prescriptions, OTC, herbals, cannabis, and nutritional supplements).: Yes
--- NOTE | 2024-12-01 23:39 | ADMGEN ---
This patient, Issa Chatman, was admitted to 2 Medical Room 242-. Patient/family oriented to hospital policies and general routines including ID bracelet, bed and alarms, visiting hours, pain management, procedures, bathroom and other care routines, personal items, smoking policy, room service/diet, and visiting hours. Information on how to activate the Rapid Response Team has been discussed. Patient/Family are encouraged to report perceived risks to care and to ask questions if they do not understand what they are told or what they should do.
[2024-12-02] VITALS (11 sets, daily range): BP systolic 90–129; BP diastolic 48–71; PULSE 74–84; RESP 16–18; TEMP 36.1–37.1; O2SAT 96–98
--- NOTE | 2024-12-02 01:20 | PC.NURSE ---
This RN spoke with CROSS COUNTRY COACH Anna Zarate, per [employer] COUN[employer] COACH keep fluids on hold if pt is eating and drinking ok
[2024-12-02 06:12] LABS: Hematocrit 37.2 % (42.0-52.0); Hemoglobin 12.3 g/dL (14.0-18.0); Mean Corpuscular HGB Conc 33.1 g/dl (32-36); Mean Corpuscular Hemoglobin 32.5 pg (26-34); Mean Corpuscular Volume 98.2 fl (80-100); Mean Platelet Volume 9.5 fl (7.4-10.4); Platelet Count Result 180 k/mm3 (150-375); Red Blood Count 3.79 M/mm3 (4.6-6.20); Red Cell Distribution Width 12.3 % (11.5-14.5); White Blood Count 5.6 K/mm3 (4.5-10.0)
[2024-12-02 06:22] LABS: Anion Gap 8 mmol/L (4-12); Blood Urea Nitrogen 21 mg/dL (9-20); Calcium 8.5 mg/dL (8.4-10.2); Carbon Dioxide 24 mmol/L (22-30); Chloride 102 mmol/L (98-107); Estimated CRCL calculation 57 ml/min; Estimated Glomerular Filt Rate > 60; Glucose 106 mg/dL (65-110); Potassium 4.1 mmol/L (3.4-5.0); Sodium 134 mmol/L (137-145)
[2024-12-02 06:57] LABS: Thyroid Stimulating Hormone Reflex 0.587 uIU/mL (0.465-4.68)
[2024-12-02] MEDS: OMEGA 3 POLYUNSAT FATTY ACIDS 1 GM CAP 2 GM PO (08:44)
[2024-12-02] MEDS: MULTIVITAMINS THERAPEUTIC TAB (*BKC) 1 TABLET PO (08:44)
[2024-12-02] MEDS: CARBIDOPA/LEVODOPA 25/100 MG TABLET 1 TABLET BY MOUTH ×3 (08:44→20:24)
[2024-12-02] MEDS: LEVOTHYROXINE SODIUM 75 MCG TABLET BY MOUTH (08:44)
[2024-12-02] MEDS: TAMSULOSIN HCL 0.4 MG CAPSULE BY MOUTH (08:45)
[2024-12-02] MEDS: ENOXAPARIN 40 MG/0.4 ML SYRINGE SUB-Q (08:45)
[2024-12-02] MEDS: OSELTAMIVIR PHOSPHATE 30 MG CAPSULE PO ×2 (08:45→20:22)
[2024-12-02] MEDS: lisinopriL 5 MG TABLET BY MOUTH (08:45)
[2024-12-02] MEDS: ATORVASTATIN 10 MG TABLET PO (08:45)
--- NOTE | 2024-12-02 11:18 | P.PNIM_ITS ---
Progress Note: A&P Assessment and Plan (1) Influenza A: Code(s): J10.1 - Influenza due to other identified influenza virus with other respiratory manifestations Status: Acute Assessment and Plan: * Positive for influenza A. * Started on Oseltamivir. * Sa02 96% RA. (2) Unsteady gait: Code(s): R26.81 - Unsteadiness on feet Status: Acute Assessment and Plan: * PT/OT * Fall precautions. (3) Generalized weakness: Code(s): R53.1 - Weakness Status: Acute Assessment and Plan: * PT/OT * Fall precautions. (4) Benign essential hypertension: Code(s): I10 - Essential (primary) hypertension Status: Chronic Assessment and Plan: * Blood pressure 128/71. * Lisinopril 5 mg PO daily. (5) Hypothyroidism (acquired): Code(s): E03.9 - Hypothyroidism, unspecified Status: Acute Assessment and Plan: * Levothyroxine 75 mcg PO x 1. (6) Chronic kidney disease: Code(s): N18.9 - Chronic kidney disease, unspecified Status: Acute Assessment and Plan: * BUN 2, Creatinine 0.97, & GFR >60 (7) Parkinsonism: Qualifiers: Parkinsonism type: unspecified Qualified Code(s): G20 - Parkinson's disease Code(s): G20 - Parkinson's disease Status: Acute Assessment and Plan: * Carbidopa/Levodopa 1 tab oral q 8. (8) Benign prostatic hyperplasia: Code(s): N40.0 - Benign prostatic hyperplasia without lower urinary tract symptoms Status: Acute Assessment and Plan: * Tamsulosin 0.4 mg oral daily. * Monitor bladder per bladder scan. (9) Pre-diabetes: Code(s): R73.03 - Prediabetes Status: Chronic Assessment and Plan: * Recent A1c was 6.1%. Hold metformin while hospitalized. Plan Subjective Date/time seen: 12/02/24 11:18 Interval history: Patient sitting up in chair. Patient denies chest pain, palpitations, shortness of breath, headache, dizziness, nausea, or vomiting. Patient happy because he was able to get up today with therapy to the rest room. Review of Systems Review of Systems: All systems reviewed & are unremarkable except as noted in HPI and below Exam Const: General: comfortable and no acute distress Resp: Effort & Inspection: normal respiratory effort Auscultation: clear to auscultation bilaterally Cardio: Rate: regular rate Rhythm: regular rhythm GI: GI Palp: Yes Soft to palpation Auscultation: normal bowel sounds Skin: Other: Warm and dry. Small abrasions on the knees. Neuro: Speech: normal speech Extrem: General: no pedal edema Psych: Other: Pleasant and cooperative with normal mood and affect. Objective Data Vital Signs Vital Signs: Vital Signs - 24 hr 12/01/24 19:20 12/01/24 19:29 12/01/24 19:30 Temperature 98.2 F Pulse Rate 97 99 95 Respiratory Rate 18 14 16 Blood Pressure 149/87 H 142/96 H Pulse Oximetry 98 98 99 Oxygen Delivery Room Air 12/01/24 19:31 12/01/24 19:45 12/01/24 20:00 Temperature Pulse Rate 96 86 87 Respiratory Rate 17 16 15 Blood Pressure 143/80 H Pulse Oximetry 99 98 97 Oxygen Delivery 12/01/24 20:01 12/01/24 20:15 12/01/24 20:30 Temperature Pulse Rate 88 85 86 Respiratory Rate 16 15 23 H Blood Pressure 140/74 Pulse Oximetry 98 98 99 Oxygen Delivery 12/01/24 20:31 12/01/24 20:45 12/01/24 21:00 Temperature Pulse Rate 86 83 86 Respiratory Rate 15 17 15 Blood Pressure 135/76 Pulse Oximetry 99 99 99 Oxygen Delivery 12/01/24 21:01 12/01/24 21:54 12/01/24 22:00 Temperature Pulse Rate 87 92 96 Respiratory Rate 13 18 19 Blood Pressure 148/87 H Pulse Oximetry 99 97 Oxygen Delivery 12/01/24 22:01 12/01/24 22:15 12/01/24 22:39 Temperature Pulse Rate 94 88 99 Respiratory Rate 18 15 20 Blood Pressure 151/78 H Pulse Oximetry 99 98 99 Oxygen Delivery 12/01/24 23:15 12/01/24 23:44 12/02/24 04:00 Temperature 99.2 F 98.7 F Pulse Rate 92 92 78 Respiratory Rate 20 20 18 Blood Pressure 156/82 H 129/66 Pulse Oximetry 99 99 97 Oxygen Delivery Room Air 12/02/24 04:11 12/02/24 08:36 12/02/24 08:45 Temperature 98.7 F 97.5 F L Pulse Rate 78 81 Respiratory Rate 18 16 Blood Pressure 129/66 128/71 Pulse Oximetry 97 96 Oxygen Delivery Room Air Intake/Output Intake/Output: Intake & Output 11/29/24 11/30/24 12/01/24 12/02/24 23:59 23:59 23:59 23:59 Intake Total 360 Output Total 150 200 Balance -150 160 Meds/Results Medications: Active Medications Generic Name Dose Route Start Last Admin Trade Name Freq PRN Reason Stop Dose Admin Acetaminophen 650 mg 12/01/24 23:36 Acetaminophen 325 Mg Tablet PO Q6H PRN Mild Pain (1-3) or Fever Atorvastatin Calcium 10 mg 12/02/24 09:00 12/02/24 08:45 Atorvastatin 10 Mg Tablet PO 10 mg DAILY ARIES Administration Carbidopa/Levodopa 1 tablet 12/02/24 08:00 12/02/24 08:44 Carbidopa/Levodopa 25/100 Mg Tablet BY MOUTH 1 tablet Q8HR ARIES Administration Enoxaparin Sodium 40 mg 12/02/24 09:00 12/02/24 08:45 Enoxaparin 40 Mg/0.4 Ml Syringe SUB-Q 40 mg DAILY ARIES Administration Fish Oil 2 gm 12/02/24 09:00 12/02/24 08:44 [place] 3 Polyunsat Fatty Acids 1 Gm Cap PO 2 gm DAILY ARIES Administration Levothyroxine Sodium 75 mcg 12/02/24 08:00 12/02/24 08:44 Levothyroxine Sodium 75 Mcg Tablet BY MOUTH 75 mcg DAILY@0630 ARIES Administration Lisinopril 5 mg 12/02/24 09:00 12/02/24 08:45 Lisinopril 5 Mg Tablet BY MOUTH 5 mg DAILY ARIES Administration Multivitamins Therapeutic 1 tablet 12/02/24 09:00 12/02/24 08:44 Multivitamins Therapeutic Tab (*Bkc) PO 1 tablet DAILY ARIES Administration Oseltamivir Phosphate 30 mg 12/02/24 09:00 12/02/24 08:45 Oseltamivir Phosphate 30 Mg Capsule PO 12/07/24 08:59 30 mg Q12HR ARIES Administration Tamsulosin HCl 0.4 mg 12/02/24 09:00 12/02/24 08:45 Tamsulosin Hcl 0.4 Mg Capsule BY MOUTH 0.4 mg DAILY ARIES Administration Radiology Results: ITS Impressions Chest X-Ray 12/01/24 19:51 IMPRESSION: No acute cardiopulmonary process. Labs Labs: Laboratory Results - last 24 hr 12/01/24 12/01/24 12/02/24 19:40 20:22 05:23 WBC 7.5 5.6 RBC 3.94 L 3.79 L Hgb 12.8 L 12.3 L Hct 38.3 L 37.2 L MCV 97.2 98.2 MCH 32.5 32.5 MCHC 33.4 33.1 RDW 12.2 12.3 Plt Count 196 180 MPV 8.9 9.5 Immature Gran % (Auto) 0.4 Neut % (Auto) 82.4 H Lymph % (Auto) 8.3 L [place] % (Auto) 8.4 Eos % (Auto) 0.4 Baso % (Auto) 0.1 L Lymph # (Auto) 0.62 L [place] # (Auto) 0.6 Eos # (Auto) 0.0 Baso # (Auto) 0.0 Abs Immat Gran (auto) 0.03 Absolute Neuts (auto) 6.2 Absolute Nucleated RBC 0.000 Nucleated RBC % 0.0 Sodium 136 L 134 L Potassium 4.6 4.1 Chloride 101 102 Carbon Dioxide 29 24 Anion Gap 6 8 BUN 24 H 21 H Creatinine 1.16 0.97 Estim Creat Clear Calc 51 57 Estimated GFR 60 > 60 Glucose 120 H 106 Calcium 9.1 8.5 Magnesium 2.0 2.0 Total Bilirubin 0.6 AST 35 ALT 54 H Alkaline Phosphatase 66 Total Protein 7.0 Albumin 4.0 TSH (Reflex) 0.587 Influenza A (RT-PCR) Positive A Influenza B (RT-PCR) Negative SARS-CoV-2 RNA (RT-PCR) Negative Quality VTE Prophylaxis VTE prophylaxis: pharmacologic ordered
[2024-12-02] MEDS: ACETAMINOPHEN 325 MG TABLET 650 MG PO (20:24)
[2024-12-03] VITALS (11 sets, daily range): BP systolic 77–121; BP diastolic 47–68; PULSE 71–80; RESP 18; TEMP 36.7–36.8; O2SAT 97–100
[2024-12-03] MEDS: LEVOTHYROXINE SODIUM 75 MCG TABLET BY MOUTH (05:40)
[2024-12-03] MEDS: CARBIDOPA/LEVODOPA 25/100 MG TABLET 1 TABLET BY MOUTH ×3 (05:40→21:18)
[2024-12-03 05:57] LABS: Basophils Percent Auto 0.3 % (0.2-1.2); Eosinophils Absolute Auto 0.1 K/mm3 (0-0.3); Eosinophils Percent Auto 1.6 % (0-4.4); Hematocrit 37.2 % (42.0-52.0); Immature Granulocyte Absolute 0.01 K/mm3 (0.00-0.031); Immature Granulocyte Percent A 0.3 % (0-0.5); Lymphocytes Absolute Auto 1.47 K/mm3 (0.9-3.2); Lymphocytes Percent Auto 38.8 % (18.3-44.2); Mean Corpuscular HGB Conc 32.3 g/dl (32-36); Mean Corpuscular Hemoglobin 31.6 pg (26-34); Mean Corpuscular Volume 97.9 fl (80-100); Monocytes Absolute Auto 0.5 K/mm3 (0.1-0.6); Monocytes Percent Auto 13.5 % (2.6-8.5); Neutrophils Absolute Auto 1.7 K/mm3 (1.3-6.7); Neutrophils Percent Auto 45.5 % (45.5-73.1); Platelet Count Result 166 k/mm3 (150-375); Red Cell Distribution Width 12.3 % (11.5-14.5); White Blood Count 3.8 K/mm3 (4.5-10.0)
[2024-12-03 07:45] LABS: Alanine Aminotransferase 18 U/L (6-50); Albumin Level 3.4 g/dL (3.5-5.1); Alkaline Phosphatase 74 U/L (38-126); Anion Gap 5 mmol/L (4-12); Aspartate Amino Transferase 54 U/L (17-59); Bilirubin,Total 0.6 mg/dL (0.2-1.3); Blood Urea Nitrogen 26 mg/dL (9-20); Calcium 8.4 mg/dL (8.4-10.2); Carbon Dioxide 29 mmol/L (22-30); Chloride 101 mmol/L (98-107); Estimated CRCL calculation 49 ml/min; Estimated Glomerular Filt Rate > 60; Glucose 100 mg/dL (65-110); Potassium 4.5 mmol/L (3.4-5.0); Sodium 135 mmol/L (137-145)
[2024-12-03] MEDS: OSELTAMIVIR PHOSPHATE 30 MG CAPSULE PO ×2 (09:08→21:18)
[2024-12-03] MEDS: MULTIVITAMINS THERAPEUTIC TAB (*BKC) 1 TABLET PO (09:08)
[2024-12-03] MEDS: OMEGA 3 POLYUNSAT FATTY ACIDS 1 GM CAP 2 GM PO (09:08)
[2024-12-03] MEDS: ATORVASTATIN 10 MG TABLET PO (09:08)
[2024-12-03] MEDS: TAMSULOSIN HCL 0.4 MG CAPSULE BY MOUTH (09:08)
[2024-12-03] MEDS: ENOXAPARIN 40 MG/0.4 ML SYRINGE SUB-Q (09:09)
[2024-12-03] MEDS: polyethylene glycoL 3350 17 GM POWD.PACK PO (11:33)
[2024-12-03] MEDS: SODIUM CHLORIDE 0.9% IV 500 ML 100 ML IV CONT (11:40)
--- NOTE | 2024-12-03 12:14 | P.PNIM_ITS ---
Progress Note: A&P Assessment and Plan (1) Influenza A: Code(s): J10.1 - Influenza due to other identified influenza virus with other respiratory manifestations Status: Acute Assessment and Plan: * Positive for influenza A. * Started on Oseltamivir. * Sa02 99% RA. (2) Orthostatic hypotension: Code(s): I95.1 - Orthostatic hypotension Status: Acute Assessment and Plan: * Orthostatic vital signs: Supine 107/60 HR 72, sitting 96/64 HR 73, and standing BP 77/47 HR 77. * NS@100 for 500 ml given. * Savage hose placed. * Up with assistance. (3) Unsteady gait: Code(s): R26.81 - Unsteadiness on feet Status: Acute Assessment and Plan: * PT/OT * Fall precautions. (4) Generalized weakness: Code(s): R53.1 - Weakness Status: Acute Assessment and Plan: * PT/OT * Fall precautions. (5) Benign essential hypertension: Code(s): I10 - Essential (primary) hypertension Status: Chronic Assessment and Plan: * Blood pressure 100/64. * Held Lisinopril 5 mg PO daily. (6) Hypothyroidism (acquired): Code(s): E03.9 - Hypothyroidism, unspecified Status: Acute Assessment and Plan: * Levothyroxine 75 mcg PO x 1. (7) Chronic kidney disease: Code(s): N18.9 - Chronic kidney disease, unspecified Status: Acute Assessment and Plan: * BUN 2, Creatinine 0.97, & GFR >60 (8) Parkinsonism: Qualifiers: Parkinsonism type: unspecified Qualified Code(s): G20 - Parkinson's disease Code(s): G20 - Parkinson's disease Status: Acute Assessment and Plan: * Carbidopa/Levodopa 1 tab oral q 8. (9) Benign prostatic hyperplasia: Code(s): N40.0 - Benign prostatic hyperplasia without lower urinary tract symptoms Status: Acute Assessment and Plan: * Tamsulosin 0.4 mg oral daily. * Monitor bladder per bladder scan. (10) Pre-diabetes: Code(s): R73.03 - Prediabetes Status: Chronic Assessment and Plan: * Recent A1c was 6.1%. Hold metformin while hospitalized. Plan Subjective Date/time seen: 12/03/24 12:14 Review of Systems Review of Systems: All systems reviewed & are unremarkable except as noted in HPI and below Objective Data Vital Signs Vital Signs: Vital Signs - 24 hr 12/02/24 13:24 12/02/24 16:18 12/02/24 16:20 Temperature 98.6 F Pulse Rate 79 Respiratory Rate 17 Blood Pressure 97/56 L 100/48 L Pulse Oximetry 98 Oxygen Delivery Room Air 12/02/24 16:23 12/02/24 20:00 12/02/24 20:00 Temperature 98.4 F 98.4 F Pulse Rate 74 74 Respiratory Rate 18 18 Blood Pressure 90/52 L 116/64 116/64 Pulse Oximetry 98 98 Oxygen Delivery 12/02/24 20:00 12/02/24 20:34 12/02/24 20:34 Temperature 98.4 F 98.4 F Pulse Rate 74 79 84 Respiratory Rate 18 18 18 Blood Pressure 111/70 92/49 L Pulse Oximetry 98 98 97 Oxygen Delivery Room Air 12/02/24 20:35 12/02/24 23:56 12/03/24 04:00 Temperature 98.4 F 97.7 F 98.0 F Pulse Rate 74 74 71 Respiratory Rate 18 18 18 Blood Pressure 116/64 100/65 109/68 Pulse Oximetry 98 98 98 Oxygen Delivery 12/03/24 04:17 12/03/24 08:00 12/03/24 08:00 Temperature 98.0 F 98.1 F Pulse Rate 71 72 72 Respiratory Rate 18 18 18 Blood Pressure 109/68 107/60 107/60 Pulse Oximetry 98 98 98 Oxygen Delivery 12/03/24 08:48 12/03/24 08:48 12/03/24 09:13 Temperature Pulse Rate 73 77 Respiratory Rate 18 18 Blood Pressure 96/64 L 77/47 L Pulse Oximetry 97 97 98 Oxygen Delivery Room Air 12/03/24 09:22 Temperature Pulse Rate Respiratory Rate Blood Pressure Pulse Oximetry Oxygen Delivery Room Air Intake/Output Intake/Output: Intake & Output 11/30/24 12/01/24 12/02/24 12/03/24 23:59 23:59 23:59 23:59 Intake Total 1190 770 Output Total 150 700 500 Balance -150 490 270 Meds/Results Medications: Active Medications Generic Name Dose Route Start Last Admin Trade Name Freq PRN Reason Stop Dose Admin Acetaminophen 650 mg 12/01/24 23:36 12/02/24 20:24 Acetaminophen 325 Mg Tablet PO 650 mg Q6H PRN Administration Mild Pain (1-3) or Fever Atorvastatin Calcium 10 mg 12/02/24 09:00 12/03/24 09:08 Atorvastatin 10 Mg Tablet PO 10 mg DAILY ARIES Administration Carbidopa/Levodopa 1 tablet 12/02/24 08:00 12/03/24 05:40 Carbidopa/Levodopa 25/100 Mg Tablet BY MOUTH 1 tablet Q8HR ARIES Administration Docusate Sodium 100 mg 12/03/24 09:30 Docusate Sodium 100 Mg Capsule PO Q12H PRN Constipation Enoxaparin Sodium 40 mg 12/02/24 09:00 12/03/24 09:09 Enoxaparin 40 Mg/0.4 Ml Syringe SUB-Q 40 mg DAILY ARIES Administration Fish Oil 2 gm 12/02/24 09:00 12/03/24 09:08 [place] 3 Polyunsat Fatty Acids 1 Gm Cap PO 2 gm DAILY ARIES Administration Sodium Chloride 500 mls @ 100 mls/hr 12/03/24 09:32 12/03/24 11:40 Normal Saline Iv IV CONT 12/03/24 14:31 100 mls/hr .Q5H ONE Administration Levothyroxine Sodium 75 mcg 12/02/24 08:00 12/03/24 05:40 Levothyroxine Sodium 75 Mcg Tablet BY MOUTH 75 mcg DAILY@0630 ARIES Administration Lisinopril 5 mg 12/02/24 09:00 12/03/24 11:35 Lisinopril 5 Mg Tablet BY MOUTH Not Given DAILY [facility] Multivitamins Therapeutic 1 tablet 12/02/24 09:00 12/03/24 09:08 Multivitamins Therapeutic Tab (*Bkc) PO 1 tablet DAILY ARIES Administration Oseltamivir Phosphate 30 mg 12/02/24 09:00 12/03/24 09:08 Oseltamivir Phosphate 30 Mg Capsule PO 12/07/24 08:59 30 mg Q12HR ARIES Administration Polyethylene Glycol 17 gm 12/03/24 09:30 12/03/24 11:33 Polyethylene Glycol 3350 17 Gm Powd.Pack PO 17 gm QAM ARIES Administration Tamsulosin HCl 0.4 mg 12/02/24 09:00 12/03/24 09:08 Tamsulosin Hcl 0.4 Mg Capsule BY MOUTH 0.4 mg DAILY ARIES Administration Radiology Results: ITS Impressions Chest X-Ray 12/01/24 19:51 IMPRESSION: No acute cardiopulmonary process. Labs Labs: Laboratory Results - last 24 hr 12/03/24 05:49 WBC 3.8 L RBC 3.80 L Hgb 12.0 L Hct 37.2 L MCV 97.9 MCH 31.6 MCHC 32.3 RDW 12.3 Plt Count 166 MPV 9.0 Immature Gran % (Auto) 0.3 Neut % (Auto) 45.5 Lymph % (Auto) 38.8 [place] % (Auto) 13.5 H Eos % (Auto) 1.6 Baso % (Auto) 0.3 Lymph # (Auto) 1.47 [place] # (Auto) 0.5 Eos # (Auto) 0.1 Baso # (Auto) 0.0 Abs Immat Gran (auto) 0.01 Absolute Neuts (auto) 1.7 Absolute Nucleated RBC 0.000 Nucleated RBC % 0.0 Sodium 135 L Potassium 4.5 Chloride 101 Carbon Dioxide 29 Anion Gap 5 BUN 26 H Creatinine 1.15 Estim Creat Clear Calc 49 Estimated GFR > 60 Glucose 100 Calcium 8.4 Total Bilirubin 0.6 AST 54 ALT 18 Alkaline Phosphatase 74 Total Protein 6.0 L Albumin 3.4 L Quality VTE Prophylaxis VTE prophylaxis: pharmacologic ordered
[2024-12-04] VITALS (10 sets, daily range): BP systolic 98–146; BP diastolic 56–83; PULSE 65–80; RESP 16–18; TEMP 36.4–36.8; O2SAT 96–100
[2024-12-04] MEDS: LEVOTHYROXINE SODIUM 75 MCG TABLET BY MOUTH (05:43)
[2024-12-04] MEDS: CARBIDOPA/LEVODOPA 25/100 MG TABLET 1 TABLET BY MOUTH ×3 (05:43→20:10)
[2024-12-04 05:56] LABS: Basophils Percent Auto 0.3 % (0.2-1.2); Eosinophils Absolute Auto 0.2 K/mm3 (0-0.3); Eosinophils Percent Auto 4.4 % (0-4.4); Hematocrit 38.1 % (42.0-52.0); Hemoglobin 12.3 g/dL (14.0-18.0); Immature Granulocyte Absolute 0.01 K/mm3 (0.00-0.031); Immature Granulocyte Percent A 0.3 % (0-0.5); Lymphocytes Absolute Auto 1.55 K/mm3 (0.9-3.2); Lymphocytes Percent Auto 42.5 % (18.3-44.2); Mean Corpuscular HGB Conc 32.3 g/dl (32-36); Mean Corpuscular Hemoglobin 31.7 pg (26-34); Mean Corpuscular Volume 98.2 fl (80-100); Mean Platelet Volume 9.4 fl (7.4-10.4); Monocytes Absolute Auto 0.4 K/mm3 (0.1-0.6); Monocytes Percent Auto 11.5 % (2.6-8.5); Neutrophils Absolute Auto 1.5 K/mm3 (1.3-6.7); Platelet Count Result 193 k/mm3 (150-375); Red Blood Count 3.88 M/mm3 (4.6-6.20); Red Cell Distribution Width 12.3 % (11.5-14.5); White Blood Count 3.7 K/mm3 (4.5-10.0)
[2024-12-04 06:15] LABS: Potassium 4.6 mmol/L (3.4-5.0)
[2024-12-04 06:19] LABS: Alanine Aminotransferase 13 U/L (6-50); Albumin Level 3.3 g/dL (3.5-5.1); Alkaline Phosphatase 76 U/L (38-126); Anion Gap 4 mmol/L (4-12); Aspartate Amino Transferase 39 U/L (17-59); Bilirubin,Total 0.5 mg/dL (0.2-1.3); Blood Urea Nitrogen 26 mg/dL (9-20); Calcium 8.3 mg/dL (8.4-10.2); Carbon Dioxide 31 mmol/L (22-30); Chloride 102 mmol/L (98-107); Estimated CRCL calculation 51 ml/min; Estimated Glomerular Filt Rate > 60; Glucose 97 mg/dL (65-110); Sodium 137 mmol/L (137-145)
--- NOTE | 2024-12-04 07:32 | P.PNIM_ITS ---
Progress Note: A&P Assessment and Plan (1) Influenza A: Code(s): J10.1 - Influenza due to other identified influenza virus with other respiratory manifestations Status: Acute Assessment and Plan: - viral panel: positive flu A - Place isolation precautions - started on tamiflu 12/02-12/07 - mucinex started for congestion - Monitor serum electrolytes, CRP, Lactic acid, troponin, CBC, WBC, temperature curve and follow cultures (2) Orthostatic hypotension: Code(s): I95.1 - Orthostatic hypotension Status: Acute Assessment and Plan: - Orthostatic vital signs qshift - Patient remains asymptomatic - Holding lisinopril 5 mg - Savage hose placed. - Up with assistance. (3) Unsteady gait: Code(s): R26.81 - Unsteadiness on feet Status: Acute Assessment and Plan: PT/OT Fall precautions. (4) Generalized weakness: Code(s): R53.1 - Weakness Status: Acute Assessment and Plan: PT/OT Fall precautions. (5) Benign essential hypertension: Code(s): I10 - Essential (primary) hypertension Status: Chronic Assessment and Plan: Chronic, currently holding home medications as patient continue to have orthostatic hypotension - Held Lisinopril 5 mg PO daily - blood pressures remain stable, continue to monitor (6) Hypothyroidism (acquired): Code(s): E03.9 - Hypothyroidism, unspecified Status: Acute Assessment and Plan: Continue home medications - Levothyroxine 75 mcg daily (7) Chronic kidney disease: Code(s): N18.9 - Chronic kidney disease, unspecified Status: Acute Assessment and Plan: Chronic, BUN/Cr appears at baseline. - Avoid nephrotoxic medications - Monitor intake and output - Renally dose medications (8) Parkinsonism: Qualifiers: Parkinsonism type: unspecified Qualified Code(s): G20 - Parkinson's disease Code(s): G20 - Parkinson's disease Status: Acute Assessment and Plan: Chronic, continue home medications - Carbidopa/Levodopa 1 tab oral q 8. (9) Benign prostatic hyperplasia: Code(s): N40.0 - Benign prostatic hyperplasia without lower urinary tract symptoms Status: Acute Assessment and Plan: Tamsulosin 0.4 mg oral daily. Monitor bladder per bladder scan. (10) Pre-diabetes: Code(s): R73.03 - Prediabetes Status: Chronic Assessment and Plan: Recent A1c was 6.1%. Hold metformin while hospitalized. Time Spent With Patient Time with patient: 25 - 35 minutes Subjective Date/time seen: 12/04/24 07:32 Interval history: 84-year-old male with Parkinson, hypertension, hyperlipidemia, type 2 diabetes mellitus, hypothyroidism, and benign prostatic hyperplasia who presented to the emergency department via EMS from in [facility] for evaluation of weakness. Patient is pleasant sitting up in his chair. He continues to endorse a lot of sinus congestion. Denies chest pain, shortness of breath, palpitations, nausea/vomiting and abdominal pain. Hoping to DC to [facility], care coordination following. Review of Systems Review of Systems: All systems reviewed & are unremarkable except as noted in HPI and below Exam Narrative: AF HR 65 RR 16 SpO2 96 BP 114/67 General: male in no acute respiratory distress who is nontoxic appearing, sitting up in chair HEENT: Normocephalic. Atraumatic. Extraocular movement intact. Sclera clear and anicteric. No facial asymmetry. Chest: Lungs are clear to auscultation bilaterally. No wheezes or crackles. CV: Heart was regular rate and rhythm. S1/S2. No murmurs, gallops, or rubs. Abd: Abdomen was soft. Nontender. Nondistended. Positive bowel sounds. Ext: No clubbing, cyanosis, or edema. 2+ DP pulses bilaterally. Neuro: Patient is alert and oriented x4. Speech is clear. Objective Data Vital Signs Vital Signs: Vital Signs - 24 hr 12/03/24 08:00 12/03/24 08:00 12/03/24 08:48 Temperature 98.1 F Pulse Rate 72 72 73 Respiratory Rate 18 18 18 Blood Pressure 107/60 107/60 96/64 L Pulse Oximetry 98 98 97 Oxygen Delivery 12/03/24 08:48 12/03/24 09:13 12/03/24 09:22 Temperature Pulse Rate 77 Respiratory Rate 18 Blood Pressure 77/47 L Pulse Oximetry 97 98 Oxygen Delivery Room Air Room Air 12/03/24 12:00 12/03/24 16:00 12/03/24 20:00 Temperature 98.1 F 98.2 F 98.1 F Pulse Rate 78 77 76 Respiratory Rate 18 18 18 Blood Pressure 100/64 121/67 110/52 L Pulse Oximetry 99 99 98 Oxygen Delivery 12/03/24 20:00 12/03/24 20:05 12/03/24 20:11 Temperature 98.1 F 98.1 F 98.1 F Pulse Rate 76 80 74 Respiratory Rate 18 18 18 Blood Pressure 110/52 L 112/61 87/62 L Pulse Oximetry 98 100 100 Oxygen Delivery 12/03/24 20:12 12/04/24 00:00 12/04/24 03:53 Temperature 98.1 F 97.9 F 98.3 F Pulse Rate 76 77 68 Respiratory Rate 18 18 18 Blood Pressure 110/52 L 124/65 146/83 H Pulse Oximetry 98 100 99 Oxygen Delivery Intake/Output Intake/Output: Intake & Output 12/01/24 12/02/24 12/03/24 12/04/24 23:59 23:59 23:59 23:59 Intake Total 1190 2440 300 Output Total 516 193 1961 800 Balance -150 490 890 -500 Meds/Results Medications: Active Medications Generic Name Dose Route Start Last Admin Trade Name Freq PRN Reason Stop Dose Admin Acetaminophen 650 mg 12/01/24 23:36 12/02/24 20:24 Acetaminophen 325 Mg Tablet PO 650 mg Q6H PRN Administration Mild Pain (1-3) or Fever Atorvastatin Calcium 10 mg 12/02/24 09:00 12/03/24 09:08 Atorvastatin 10 Mg Tablet PO 10 mg DAILY ARIES Administration Carbidopa/Levodopa 1 tablet 12/02/24 08:00 12/04/24 05:43 Carbidopa/Levodopa 25/100 Mg Tablet BY MOUTH 1 tablet Q8HR ARIES Administration Docusate Sodium 100 mg 12/03/24 09:30 Docusate Sodium 100 Mg Capsule PO Q12H PRN Constipation Enoxaparin Sodium 40 mg 12/02/24 09:00 12/03/24 09:09 Enoxaparin 40 Mg/0.4 Ml Syringe SUB-Q 40 mg DAILY ARIES Administration Fish Oil 2 gm 12/02/24 09:00 12/03/24 09:08 [place] 3 Polyunsat Fatty Acids 1 Gm Cap PO 2 gm DAILY ARIES Administration Levothyroxine Sodium 75 mcg 12/02/24 08:00 12/04/24 05:43 Levothyroxine Sodium 75 Mcg Tablet BY MOUTH 75 mcg DAILY@0630 ARIES Administration Lisinopril 5 mg 12/02/24 09:00 12/03/24 11:35 Lisinopril 5 Mg Tablet BY MOUTH Not Given DAILY [facility] Multivitamins Therapeutic 1 tablet 12/02/24 09:00 12/03/24 09:08 Multivitamins Therapeutic Tab (*Bkc) PO 1 tablet DAILY ARIES Administration Oseltamivir Phosphate 30 mg 12/02/24 09:00 12/03/24 21:18 Oseltamivir Phosphate 30 Mg Capsule PO 12/07/24 08:59 30 mg Q12HR ARIES Administration Polyethylene Glycol 17 gm 12/03/24 09:30 12/03/24 11:33 Polyethylene Glycol 3350 17 Gm Powd.Pack PO 17 gm QAM ARIES Administration Tamsulosin HCl 0.4 mg 12/02/24 09:00 12/03/24 09:08 Tamsulosin Hcl 0.4 Mg Capsule BY MOUTH 0.4 mg DAILY ARIES Administration Radiology Results: ITS Impressions Chest X-Ray 12/01/24 19:51 IMPRESSION: No acute cardiopulmonary process. Labs Labs: Laboratory Results - last 24 hr 12/03/24 12/04/24 05:49 05:26 WBC 3.7 L RBC 3.88 L Hgb 12.3 L Hct 38.1 L MCV 98.2 MCH 31.7 MCHC 32.3 RDW 12.3 Plt Count 193 MPV 9.4 Immature Gran % (Auto) 0.3 Neut % (Auto) 41.0 L Lymph % (Auto) 42.5 [place] % (Auto) 11.5 H Eos % (Auto) 4.4 Baso % (Auto) 0.3 Lymph # (Auto) 1.55 [place] # (Auto) 0.4 Eos # (Auto) 0.2 Baso # (Auto) 0.0 Abs Immat Gran (auto) 0.01 Absolute Neuts (auto) 1.5 Absolute Nucleated RBC 0.000 Nucleated RBC % 0.0 Sodium 135 L 137 Potassium 4.5 4.6 Chloride 101 102 Carbon Dioxide 29 31 H Anion Gap 5 4 BUN 26 H 26 H Creatinine 1.15 1.10 Estim Creat Clear Calc 49 51 Estimated GFR > 60 > 60 Glucose 100 97 Calcium 8.4 8.3 L Total Bilirubin 0.6 0.5 AST 54 39 ALT 18 13 Alkaline Phosphatase 74 76 Total Protein 6.0 L 6.0 L Albumin 3.4 L 3.3 L Quality VTE Prophylaxis VTE prophylaxis: pharmacologic ordered
[2024-12-04] MEDS: TAMSULOSIN HCL 0.4 MG CAPSULE BY MOUTH (08:39)
[2024-12-04] MEDS: MULTIVITAMINS THERAPEUTIC TAB (*BKC) 1 TABLET PO (08:39)
[2024-12-04] MEDS: OSELTAMIVIR PHOSPHATE 30 MG CAPSULE PO ×2 (08:39→20:10)
[2024-12-04] MEDS: OMEGA 3 POLYUNSAT FATTY ACIDS 1 GM CAP 2 GM PO (08:39)
[2024-12-04] MEDS: ATORVASTATIN 10 MG TABLET PO (08:39)
[2024-12-04] MEDS: polyethylene glycoL 3350 17 GM POWD.PACK PO (08:40)
[2024-12-04] MEDS: ENOXAPARIN 40 MG/0.4 ML SYRINGE SUB-Q (08:40)
[2024-12-04] MEDS: guaiFENesin 12 HR 600 MG TABCR PO ×2 (14:56→20:10)
[2024-12-05] VITALS (10 sets, daily range): BP systolic 96–140; BP diastolic 56–80; PULSE 71–77; RESP 14–16; TEMP 36.1–36.8; O2SAT 96–98
[2024-12-05] MEDS: LEVOTHYROXINE SODIUM 75 MCG TABLET BY MOUTH (05:50)
[2024-12-05] MEDS: CARBIDOPA/LEVODOPA 25/100 MG TABLET 1 TABLET BY MOUTH ×3 (05:50→20:19)
[2024-12-05 06:23] LABS: Basophils Percent Auto 0.2 % (0.2-1.2); Eosinophils Absolute Auto 0.2 K/mm3 (0-0.3); Eosinophils Percent Auto 4.2 % (0-4.4); Hematocrit 36.7 % (42.0-52.0); Hemoglobin 12.1 g/dL (14.0-18.0); Immature Granulocyte Absolute 0.01 K/mm3 (0.00-0.031); Immature Granulocyte Percent A 0.2 % (0-0.5); Lymphocytes Absolute Auto 1.61 K/mm3 (0.9-3.2); Lymphocytes Percent Auto 37.8 % (18.3-44.2); Mean Corpuscular Hemoglobin 32.2 pg (26-34); Mean Corpuscular Volume 97.6 fl (80-100); Mean Platelet Volume 9.5 fl (7.4-10.4); Monocytes Absolute Auto 0.4 K/mm3 (0.1-0.6); Monocytes Percent Auto 8.5 % (2.6-8.5); Neutrophils Absolute Auto 2.1 K/mm3 (1.3-6.7); Neutrophils Percent Auto 49.1 % (45.5-73.1); Platelet Count Result 206 k/mm3 (150-375); Red Blood Count 3.76 M/mm3 (4.6-6.20); White Blood Count 4.3 K/mm3 (4.5-10.0)
[2024-12-05 06:36] LABS: Chloride 101 mmol/L (98-107)
[2024-12-05 06:42] LABS: Alanine Aminotransferase 12 U/L (6-50); Albumin Level 3.3 g/dL (3.5-5.1); Alkaline Phosphatase 75 U/L (38-126); Anion Gap 5 mmol/L (4-12); Aspartate Amino Transferase 28 U/L (17-59); Bilirubin,Total 0.6 mg/dL (0.2-1.3); Blood Urea Nitrogen 22 mg/dL (9-20); Calcium 8.4 mg/dL (8.4-10.2); Carbon Dioxide 31 mmol/L (22-30); Estimated CRCL calculation 53 ml/min; Estimated Glomerular Filt Rate > 60; Glucose 95 mg/dL (65-110); Potassium 4.5 mmol/L (3.4-5.0); Sodium 137 mmol/L (137-145)
--- NOTE | 2024-12-05 07:00 | P.PNIM_ITS ---
Progress Note: A&P Assessment and Plan (1) Influenza A: Code(s): J10.1 - Influenza due to other identified influenza virus with other respiratory manifestations Status: Acute Assessment and Plan: - viral panel: positive flu A - Place isolation precautions - started on tamiflu 12/02-12/07 - mucinex started for congestion - Monitor serum electrolytes, CRP, Lactic acid, troponin, CBC, WBC, temperature curve and follow cultures (2) Orthostatic hypotension: Code(s): I95.1 - Orthostatic hypotension Status: Acute Assessment and Plan: - Orthostatic vital signs qshift Performed myself during assessment and were negative. Patient remains asymptomatic denying dizziness and lightheadedness. - Holding lisinopril 5 mg , blood pressures remain stable - Savage hose placed. - Up with assistance. (3) Unsteady gait: Code(s): R26.81 - Unsteadiness on feet Status: Acute Assessment and Plan: PT/OT Recommending placement for further therapy Fall precautions. (4) Generalized weakness: Code(s): R53.1 - Weakness Status: Acute Assessment and Plan: PT/OT Recommending placement for further therapy Fall precautions. (5) Benign essential hypertension: Code(s): I10 - Essential (primary) hypertension Status: Chronic Assessment and Plan: Chronic, currently holding home medications as patient continue to have orthostatic hypotension - Held Lisinopril 5 mg PO daily - blood pressures remain stable, continue to monitor (6) Hypothyroidism (acquired): Code(s): E03.9 - Hypothyroidism, unspecified Status: Acute Assessment and Plan: Continue home medications - Levothyroxine 75 mcg daily (7) Chronic kidney disease: Code(s): N18.9 - Chronic kidney disease, unspecified Status: Acute Assessment and Plan: Chronic, BUN/Cr appears at baseline. - Avoid nephrotoxic medications - Monitor intake and output - Renally dose medications (8) Parkinsonism: Qualifiers: Parkinsonism type: unspecified Qualified Code(s): G20 - Parkinson's disease Code(s): G20 - Parkinson's disease Status: Acute Assessment and Plan: Chronic, continue home medications - Carbidopa/Levodopa 1 tab oral q 8. (9) Benign prostatic hyperplasia: Code(s): N40.0 - Benign prostatic hyperplasia without lower urinary tract symptoms Status: Acute Assessment and Plan: Tamsulosin 0.4 mg oral daily. Monitor bladder per bladder scan. (10) Pre-diabetes: Code(s): R73.03 - Prediabetes Status: Chronic Assessment and Plan: Recent A1c was 6.1%. Hold metformin while hospitalized. Time Spent With Patient Time with patient: 25 - 35 minutes Subjective Date/time seen: 12/05/24 07:00 Interval history: 84-year-old male with Parkinson, hypertension, hyperlipidemia, type 2 diabetes mellitus, hypothyroidism, and benign prostatic hyperplasia who presented to the emergency department via EMS from [facility] for evaluation of weakness. Patient is pleasant lying comfortably in bed. He has no complaints denying chest pain, shortness of breath, palpitations. Performed orthostatic vital signs during assessment and patient was able to get to the side of the bed and stand on his own. He denied dizziness or lightheadedness. Patient notes that he has not had a bowel movement in 5 days which is not unurual for him. He denies , nausea/vomiting and abdominal pain. Will continue colace and start senna. Review of Systems Review of Systems: All systems reviewed & are unremarkable except as noted in HPI and below Exam Narrative: AF HR 77 RR 16 SPO2 96 BP 109/62 General: male in no acute respiratory distress who is nontoxic appearing, sitting up in bed HEENT: Normocephalic. Atraumatic. Extraocular movement intact. Sclera clear and anicteric. No facial asymmetry. Chest: Lungs are clear to auscultation bilaterally. No wheezes or crackles. CV: Heart was regular rate and rhythm. S1/S2. No murmurs, gallops, or rubs. Abd: Abdomen was soft. Nontender. Nondistended. Positive bowel sounds. Ext: No clubbing, cyanosis, or edema. 2+ DP pulses bilaterally. Neuro: Patient is alert and oriented x4. Speech is clear. Objective Data Vital Signs Vital Signs: Vital Signs - 24 hr 12/04/24 08:10 12/04/24 08:40 12/04/24 14:40 Temperature 97.6 F 98 F Pulse Rate 65 78 Respiratory Rate 16 16 Blood Pressure 114/67 111/58 L Pulse Oximetry 96 97 Oxygen Delivery Room Air 12/04/24 15:45 12/04/24 15:47 12/04/24 15:49 Temperature Pulse Rate Respiratory Rate Blood Pressure 133/74 123/63 104/63 Pulse Oximetry Oxygen Delivery 12/04/24 20:00 12/04/24 20:00 12/04/24 20:00 Temperature 97.7 F Pulse Rate 73 73 Respiratory Rate 16 Blood Pressure 137/71 137/71 Pulse Oximetry 100 Oxygen Delivery Room Air 12/04/24 20:05 12/04/24 20:10 12/05/24 06:19 Temperature 97.9 F Pulse Rate 77 80 72 Respiratory Rate 14 Blood Pressure 118/70 98/56 L 133/76 Pulse Oximetry 97 Oxygen Delivery Intake/Output Intake/Output: Intake & Output 12/02/24 12/03/24 12/04/24 12/05/24 23:59 23:59 23:59 23:59 Intake Total 1190 2440 1740 250 Output Total 700 1222 051 7443 Balance 490 890 940 -950 Meds/Results Medications: Active Medications Generic Name Dose Route Start Last Admin Trade Name Freq PRN Reason Stop Dose Admin Acetaminophen 650 mg 12/01/24 23:36 12/02/24 20:24 Acetaminophen 325 Mg Tablet PO 650 mg Q6H PRN Administration Mild Pain (1-3) or Fever Atorvastatin Calcium 10 mg 12/02/24 09:00 12/04/24 08:39 Atorvastatin 10 Mg Tablet PO 10 mg DAILY ARIES Administration Carbidopa/Levodopa 1 tablet 12/02/24 08:00 12/05/24 05:50 Carbidopa/Levodopa 25/100 Mg Tablet BY MOUTH 1 tablet Q8HR ARIES Administration Docusate Sodium 100 mg 12/03/24 09:30 Docusate Sodium 100 Mg Capsule PO Q12H PRN Constipation Enoxaparin Sodium 40 mg 12/02/24 09:00 12/04/24 08:40 Enoxaparin 40 Mg/0.4 Ml Syringe SUB-Q 40 mg DAILY ARIES Administration Fish Oil 2 gm 12/02/24 09:00 12/04/24 08:39 [place] 3 Polyunsat Fatty Acids 1 Gm Cap PO 2 gm DAILY ARIES Administration Guaifenesin 600 mg 12/04/24 14:10 12/04/24 20:10 Guaifenesin 12 Hr 600 Mg Tabcr PO 600 mg Q12HR ARIES Administration Levothyroxine Sodium 75 mcg 12/02/24 08:00 12/05/24 05:50 Levothyroxine Sodium 75 Mcg Tablet BY MOUTH 75 mcg DAILY@0630 ARIES Administration Lisinopril 5 mg 12/02/24 09:00 12/03/24 11:35 Lisinopril 5 Mg Tablet BY MOUTH Not Given DAILY [facility] Multivitamins Therapeutic 1 tablet 12/02/24 09:00 12/04/24 08:39 Multivitamins Therapeutic Tab (*Bkc) PO 1 tablet DAILY ARIES Administration Oseltamivir Phosphate 30 mg 12/02/24 09:00 12/04/24 20:10 Oseltamivir Phosphate 30 Mg Capsule PO 12/07/24 08:59 30 mg Q12HR ARIES Administration Polyethylene Glycol 17 gm 12/03/24 09:30 12/04/24 08:40 Polyethylene Glycol 3350 17 Gm Powd.Pack PO 17 gm QAM ARIES Administration Tamsulosin HCl 0.4 mg 12/02/24 09:00 12/04/24 08:39 Tamsulosin Hcl 0.4 Mg Capsule BY MOUTH 0.4 mg DAILY ARIES Administration Radiology Results: ITS Impressions Chest X-Ray 12/01/24 19:51 IMPRESSION: No acute cardiopulmonary process. Labs Labs: Laboratory Results - last 24 hr 12/05/24 05:45 WBC 4.3 L RBC 3.76 L Hgb 12.1 L Hct 36.7 L MCV 97.6 MCH 32.2 MCHC 33.0 RDW 12.0 Plt Count 206 MPV 9.5 Immature Gran % (Auto) 0.2 Neut % (Auto) 49.1 Lymph % (Auto) 37.8 [place] % (Auto) 8.5 Eos % (Auto) 4.2 Baso % (Auto) 0.2 Lymph # (Auto) 1.61 [place] # (Auto) 0.4 Eos # (Auto) 0.2 Baso # (Auto) 0.0 Abs Immat Gran (auto) 0.01 Absolute Neuts (auto) 2.1 Absolute Nucleated RBC 0.000 Nucleated RBC % 0.0 Sodium 137 Potassium 4.5 Chloride 101 Carbon Dioxide 31 H Anion Gap 5 BUN 22 H Creatinine 1.08 Estim Creat Clear Calc 53 Estimated GFR > 60 Glucose 95 Calcium 8.4 Total Bilirubin 0.6 AST 28 ALT 12 Alkaline Phosphatase 75 Total Protein 6.0 L Albumin 3.3 L Quality VTE Prophylaxis VTE prophylaxis: pharmacologic ordered
[2024-12-05] MEDS: OMEGA 3 POLYUNSAT FATTY ACIDS 1 GM CAP 2 GM PO (09:02)
[2024-12-05] MEDS: MULTIVITAMINS THERAPEUTIC TAB (*BKC) 1 TABLET PO (09:02)
[2024-12-05] MEDS: ATORVASTATIN 10 MG TABLET PO (09:02)
[2024-12-05] MEDS: OSELTAMIVIR PHOSPHATE 30 MG CAPSULE PO ×2 (09:02→20:19)
[2024-12-05] MEDS: guaiFENesin 12 HR 600 MG TABCR PO ×2 (09:02→20:19)
[2024-12-05] MEDS: ENOXAPARIN 40 MG/0.4 ML SYRINGE SUB-Q (09:02)
[2024-12-05] MEDS: TAMSULOSIN HCL 0.4 MG CAPSULE BY MOUTH (09:02)
[2024-12-05] MEDS: polyethylene glycoL 3350 17 GM POWD.PACK PO (09:02)
--- OUTSIDE RECORDS SUMMARY | 2024-12-05 10:58 | XMS_ITS | Continuity of Care Document ---
Author Organization [facility] Address [address] [place] [address] Phone Care Team Providers Care Security Attendant Name Role Phone Nela Gramajo Unavailable Unavailable Procedures Procedure Date Post-op Follow-up Visit Post-op Follow-up Visit Post-op Follow-up Visit Remove Cataract, Insert Lens PreOp Assessment Performed Post-op Follow-up Visit [facility]Professional Post-op Follow-up Visit Post-op Follow-up Visit Remove Cataract, Insert Lens PreOp Assessment Performed Cataract Kit SEC MV Tax - Medical Eye Exam, New Patient [facility] Advance Directives Directive Yes / No Effective Date File Name No Information Encounters Encounter Description Practice Location Reason(s) For Visit Diagnoses Date Provider Providers Copied on Encounter [facility], [address] [place] [address] [address], [place], [place], [id number], [place] tel:[phone] [facility] No Information 0 Rox Rondon. [address] , [address], [place], [address], [place]. tel:[phone] [facility], [address], [place], [place], [id number], [place] tel:[phone] [facility] No Information - 0 Rox Rondon. [address] , [address], [place], [place], [facility], [place]. tel:[phone] [facility], [address], [place], [place], [id number], [place] tel:[phone] [facility] No Information 2-201 0 Lopez OD Shemar. [address] , [address], [place], [facility], [place]. tel:[phone] [facility], [address], [place], [place], [address], [place] tel:[phone] [facility] No Information - 0 Rox Rondon. [address] , [address], [place], [facility], [place]. tel:[phone] [facility], [address], [place], [place], [id number], [place] tel:[phone] [facility] No Information 3-201 0 Rox Rondon. [address] , [address], [place], [facility], [place]. tel:[phone] Referring Provider: Nela Trinidad, [address], [place], [facility]. tel:[phone] [facility], [address], [place], [place], [address], [place] tel:[phone] [facility] No Information 0 Lopez OD Shemar. [address] , [address], [place], [facility], [place]. tel:[phone] [facility], [address], [place], [place], [id number], tel:[phone] [facility] No Information May-0 8-201 0 Lopez OD Shemar. [address] [facility] [facility] , [address], [place], [facility], . tel:[phone] [facility], [address] [facility] [address], [place], [place], [address], tel:[phone] [facility] No Information May-0 7-201 0 Rox Rondon. [address] , [address], [place], [facility], . tel:[phone] [facility], [id number] [place] [address] [address], [place], [place], [id number], tel:[phone] [facility] No Information May-0 7-201 0 Rox Rondon. [facility] , [address], [place], [facility], . tel:[phone] [facility], [address] [facility] [address], [place], [place], [id number], tel:[phone] [facility] No Information Apr-2 9-201 0 Rox Rondon. [facility] , [address], [place], [facility], . tel:[phone] Referring Provider: Nela Trinidad, [address] [place], [place] [address], [place], [facility]. tel:[phone] Family History Family Member Type Diagnosis Age At Onset No Information Payers Payer name Insurance type Covered green party ID Authoriza tion(s) No Information Social History Type Description Quantity Date Captured Comments Sex Male Smoking Status No Information Chief Complaint And Reason For Visit No Information Reason For Referral Reason For Referral No Information History Of Present Illness Encounter Date Complaint History Of Prese nt Illness No Information Functional Status Date Functional Assessmen t No Information Instructions Date Instruction Additional Infor mation No Information Assessments Type Assessment Date No Information Patient Care Teams Name Effective Dates (start - stop) Status Members No Information
[2024-12-05] MEDS: DOCUSATE SODIUM 100 MG CAPSULE PO (20:19)
[2024-12-05] MEDS: SENNA/DOCUSATE SODIUM TABLET 1 TAB PO (20:19)
[2024-12-06] MEDS: LEVOTHYROXINE SODIUM 75 MCG TABLET BY MOUTH (05:36)
[2024-12-06] MEDS: CARBIDOPA/LEVODOPA 25/100 MG TABLET 1 TABLET BY MOUTH ×2 (05:36→13:32)
[2024-12-06 06:12] VITALS: BP 127/72; PULSE 71; RESP 14; TEMP 36.7; O2SAT 96
[2024-12-06 06:19] LABS: Basophils Percent Auto 0.2 % (0.2-1.2); Eosinophils Absolute Auto 0.1 K/mm3 (0-0.3); Eosinophils Percent Auto 3.3 % (0-4.4); Hematocrit 36.2 % (42.0-52.0); Immature Granulocyte Absolute 0.01 K/mm3 (0.00-0.031); Immature Granulocyte Percent A 0.2 % (0-0.5); Lymphocytes Absolute Auto 1.78 K/mm3 (0.9-3.2); Lymphocytes Percent Auto 41.5 % (18.3-44.2); Mean Corpuscular HGB Conc 33.1 g/dl (32-36); Mean Corpuscular Volume 96.5 fl (80-100); Mean Platelet Volume 9.3 fl (7.4-10.4); Monocytes Absolute Auto 0.4 K/mm3 (0.1-0.6); Monocytes Percent Auto 8.6 % (2.6-8.5); Neutrophils Percent Auto 46.2 % (45.5-73.1); Platelet Count Result 205 k/mm3 (150-375); Red Blood Count 3.75 M/mm3 (4.6-6.20); Red Cell Distribution Width 11.9 % (11.5-14.5); White Blood Count 4.3 K/mm3 (4.5-10.0)
[2024-12-06 06:39] LABS: Alanine Aminotransferase 20 U/L (6-50); Albumin Level 3.4 g/dL (3.5-5.1); Alkaline Phosphatase 86 U/L (38-126); Anion Gap 5 mmol/L (4-12); Aspartate Amino Transferase 37 U/L (17-59); Bilirubin,Total 0.7 mg/dL (0.2-1.3); Blood Urea Nitrogen 23 mg/dL (9-20); Calcium 8.4 mg/dL (8.4-10.2); Carbon Dioxide 31 mmol/L (22-30); Chloride 100 mmol/L (98-107); Estimated CRCL calculation 55 ml/min; Estimated Glomerular Filt Rate > 60; Glucose 102 mg/dL (65-110); Potassium 4.3 mmol/L (3.4-5.0); Sodium 136 mmol/L (137-145)
--- NOTE | 2024-12-06 07:16 | PM.IMPN ---
Progress Note: A&P Assessment and Plan (1) Influenza A: Code(s): J10.1 - Influenza due to other identified influenza virus with other respiratory manifestations Status: Acute Assessment and Plan: - viral panel: positive flu A - Place isolation precautions - started on tamiflu 12/02-12/07 - mucinex started for congestion - Monitor serum electrolytes, CRP, Lactic acid, troponin, CBC, WBC, temperature curve and follow cultures (2) Fecal impaction: Code(s): K56.41 - Fecal impaction Status: Acute Assessment and Plan: Patient has not had a BM in at least 5 days. Denies nausea/vomiting and abdominal pain. - Bowel regimen: Senna and Colace - soap suds enema x1 - KUB: findings consistent with fecal impaction (3) Orthostatic hypotension: Code(s): I95.1 - Orthostatic hypotension Status: Acute Assessment and Plan: - Orthostatic vital signs qshift Performed myself during assessment and were negative. Patient remains asymptomatic denying dizziness and lightheadedness. - Holding lisinopril 5 mg , blood pressures remain stable - Savage hose placed. - Up with assistance. (4) Unsteady gait: Code(s): R26.81 - Unsteadiness on feet Status: Acute Assessment and Plan: PT/OT Recommending placement for further therapy Fall precautions. (5) Generalized weakness: Code(s): R53.1 - Weakness Status: Acute Assessment and Plan: PT/OT Recommending placement for further therapy Fall precautions. (6) Benign essential hypertension: Code(s): I10 - Essential (primary) hypertension Status: Chronic Assessment and Plan: Chronic, currently holding home medications as patient continue to have orthostatic hypotension - Held Lisinopril 5 mg PO daily - blood pressures remain stable, continue to monitor (7) Hypothyroidism (acquired): Code(s): E03.9 - Hypothyroidism, unspecified Status: Acute Assessment and Plan: Continue home medications - Levothyroxine 75 mcg daily (8) Chronic kidney disease: Code(s): N18.9 - Chronic kidney disease, unspecified Status: Acute Assessment and Plan: Chronic, BUN/Cr appears at baseline. - Avoid nephrotoxic medications - Monitor intake and output - Renally dose medications (9) Parkinsonism: Qualifiers: Parkinsonism type: unspecified Qualified Code(s): G20 - Parkinson's disease Code(s): G20 - Parkinson's disease Status: Acute Assessment and Plan: Chronic, continue home medications - Carbidopa/Levodopa 1 tab oral q 8. (10) Benign prostatic hyperplasia: Code(s): N40.0 - Benign prostatic hyperplasia without lower urinary tract symptoms Status: Acute Assessment and Plan: Tamsulosin 0.4 mg oral daily. Monitor bladder per bladder scan. (11) Pre-diabetes: Code(s): R73.03 - Prediabetes Status: Chronic Assessment and Plan: Recent A1c was 6.1%. Hold metformin while hospitalized. Subjective Date/time seen: 12/06/24 07:16 Interval history: 84-year-old male with Parkinson, hypertension, hyperlipidemia, type 2 diabetes mellitus, hypothyroidism, and benign prostatic hyperplasia who presented to the emergency department via EMS from in [facility] for evaluation of weakness. Review of Systems Review of Systems: All systems reviewed & are unremarkable except as noted in HPI and below Exam Narrative: AF HR General: male in no acute respiratory distress who is nontoxic appearing, sitting up in bed HEENT: Normocephalic. Atraumatic. Extraocular movement intact. Sclera clear and anicteric. No facial asymmetry. Chest: Lungs are clear to auscultation bilaterally. No wheezes or crackles. CV: Heart was regular rate and rhythm. S1/S2. No murmurs, gallops, or rubs. Abd: Abdomen was soft. Nontender. Nondistended. Positive bowel sounds. Ext: No clubbing, cyanosis, or edema. 2+ DP pulses bilaterally. Neuro: Patient is alert and oriented x4. Speech is clear. Objective Data Vital Signs Vital Signs: Vital Signs - 24 hr 12/05/24 08:00 12/05/24 08:08 12/05/24 08:09 Temperature 96.9 F L 96.9 F L 96.9 F L Pulse Rate 71 77 77 Respiratory Rate 16 16 16 Blood Pressure 140/80 112/73 96/56 L Pulse Oximetry 96 97 96 Oxygen Delivery 12/05/24 10:21 12/05/24 10:21 12/05/24 10:22 Temperature Pulse Rate Respiratory Rate Blood Pressure 129/64 111/66 109/62 Pulse Oximetry Oxygen Delivery 12/05/24 13:51 12/05/24 20:00 12/05/24 20:27 Temperature 98.3 F 97.8 F Pulse Rate 75 72 Respiratory Rate 16 16 Blood Pressure 126/68 137/77 Pulse Oximetry 98 97 Oxygen Delivery Room Air 12/05/24 20:27 12/05/24 20:30 12/05/24 20:32 Temperature Pulse Rate 72 73 75 Respiratory Rate Blood Pressure 137/77 128/74 118/58 L Pulse Oximetry Oxygen Delivery 12/06/24 06:12 Temperature 98.0 F Pulse Rate 71 Respiratory Rate 14 Blood Pressure 127/72 Pulse Oximetry 96 Oxygen Delivery Intake/Output Intake/Output: Intake & Output 12/03/24 12/04/24 12/05/24 12/06/24 23:59 23:59 23:59 23:59 Intake Total 2440 1740 970 Output Total 3250 345 8521 400 Balance 890 940 -830 -400 Meds/Results Medications: Active Medications Generic Name Dose Route Start Last Admin Trade Name Freq PRN Reason Stop Dose Admin Acetaminophen 650 mg 12/01/24 23:36 12/02/24 20:24 Acetaminophen 325 Mg Tablet PO 650 mg Q6H PRN Administration Mild Pain (1-3) or Fever Atorvastatin Calcium 10 mg 12/02/24 09:00 12/05/24 09:02 Atorvastatin 10 Mg Tablet PO 10 mg DAILY ARIES Administration Carbidopa/Levodopa 1 tablet 12/02/24 08:00 12/06/24 05:36 Carbidopa/Levodopa 25/100 Mg Tablet BY MOUTH 1 tablet Q8HR ARIES Administration Docusate Sodium 100 mg 12/03/24 09:30 12/05/24 20:19 Docusate Sodium 100 Mg Capsule PO 100 mg Q12H PRN Administration Constipation Enoxaparin Sodium 40 mg 12/02/24 09:00 12/05/24 09:02 Enoxaparin 40 Mg/0.4 Ml Syringe SUB-Q 40 mg DAILY ARIES Administration Fish Oil 2 gm 12/02/24 09:00 12/05/24 09:02 [place] 3 Polyunsat Fatty Acids 1 Gm Cap PO 2 gm DAILY ARIES Administration Guaifenesin 600 mg 12/04/24 14:10 12/05/24 20:19 Guaifenesin 12 Hr 600 Mg Tabcr PO 600 mg Q12HR ARIES Administration Levothyroxine Sodium 75 mcg 12/02/24 08:00 12/06/24 05:36 Levothyroxine Sodium 75 Mcg Tablet BY MOUTH 75 mcg DAILY@0630 ARIES Administration Lisinopril 5 mg 12/02/24 09:00 12/03/24 11:35 Lisinopril 5 Mg Tablet BY MOUTH Not Given DAILY [facility] Multivitamins Therapeutic 1 tablet 12/02/24 09:00 12/05/24 09:02 Multivitamins Therapeutic Tab (*Bkc) PO 1 tablet DAILY ARIES Administration Oseltamivir Phosphate 30 mg 12/02/24 09:00 12/05/24 20:19 Oseltamivir Phosphate 30 Mg Capsule PO 12/07/24 08:59 30 mg Q12HR ARIES Administration Polyethylene Glycol 17 gm 12/03/24 09:30 12/05/24 09:02 Polyethylene Glycol 3350 17 Gm Powd.Pack PO 17 gm QAM ARISE Administration Senna/Docusate Sodium 1 tab 12/05/24 21:00 12/05/24 20:19 Senna/Docusate Sodium Tablet PO 1 tab HS ARIES Administration Tamsulosin HCl 0.4 mg 12/02/24 09:00 12/05/24 09:02 Tamsulosin Hcl 0.4 Mg Capsule BY MOUTH 0.4 mg DAILY ARIES Administration Radiology Results: ITS Impressions Chest X-Ray 12/01/24 19:51 IMPRESSION: No acute cardiopulmonary process. Abdomen X-Ray 12/05/24 15:29 IMPRESSION: Findings consistent with fecal impaction, as detailed above. Labs Labs: Laboratory Results - last 24 hr 12/06/24 05:47 WBC 4.3 L RBC 3.75 L Hgb 12.0 L Hct 36.2 L MCV 96.5 MCH 32.0 MCHC 33.1 RDW 11.9 Plt Count 205 MPV 9.3 Immature Gran % (Auto) 0.2 Neut % (Auto) 46.2 Lymph % (Auto) 41.5 [place] % (Auto) 8.6 H Eos % (Auto) 3.3 Baso % (Auto) 0.2 Lymph # (Auto) 1.78 [place] # (Auto) 0.4 Eos # (Auto) 0.1 Baso # (Auto) 0.0 Abs Immat Gran (auto) 0.01 Absolute Neuts (auto) 2.0 Absolute Nucleated RBC 0.000 Nucleated RBC % 0.0 Sodium 136 L Potassium 4.3 Chloride 100 Carbon Dioxide 31 H Anion Gap 5 BUN 23 H Creatinine 1.06 Estim Creat Clear Calc 55 Estimated GFR > 60 Glucose 102 Calcium 8.4 Total Bilirubin 0.7 AST 37 ALT 20 Alkaline Phosphatase 86 Total Protein 6.0 L Albumin 3.4 L Quality VTE Prophylaxis VTE prophylaxis: pharmacologic ordered
[2024-12-06 08:00] VITALS: BP 137/71; PULSE 64; RESP 16; TEMP 36.1; O2SAT 100
[2024-12-06 08:16] VITALS: BP 130/72; PULSE 68; RESP 16; TEMP 36.1; O2SAT 99
[2024-12-06 08:17] VITALS: BP 111/67; PULSE 78; RESP 16; TEMP 36.1; O2SAT 99
[2024-12-06] MEDS: polyethylene glycoL 3350 17 GM POWD.PACK PO (09:00)
[2024-12-06] MEDS: ENOXAPARIN 40 MG/0.4 ML SYRINGE SUB-Q (09:00)
[2024-12-06] MEDS: guaiFENesin 12 HR 600 MG TABCR PO (09:01)
[2024-12-06] MEDS: MULTIVITAMINS THERAPEUTIC TAB (*BKC) 1 TABLET PO (09:01)
[2024-12-06] MEDS: ATORVASTATIN 10 MG TABLET PO (09:01)
[2024-12-06] MEDS: TAMSULOSIN HCL 0.4 MG CAPSULE BY MOUTH (09:01)
[2024-12-06] MEDS: OSELTAMIVIR PHOSPHATE 30 MG CAPSULE PO (09:01)
[2024-12-06] MEDS: OMEGA 3 POLYUNSAT FATTY ACIDS 1 GM CAP 2 GM PO (09:01)
[2024-12-06 13:52] VITALS: BP 144/70; PULSE 76; RESP 16; TEMP 36; O2SAT 99
--- NOTE | 2024-12-06 14:06 | P.DS_ITS ---
DS: Admitting Diagnosis Discharge Date 12/06/2024 Admitting Diagnosis influenza A fecal impaction Orthostatic hypertension unsteady gait generalized weakness essential hypertension hypothyroidism CKD parkinsonism BPH pre diabetes DS: Discharge Diagnosis Discharge Diagnosis (1) Influenza A: Code(s): J10.1 - Influenza due to other identified influenza virus with other respiratory manifestations Status: Acute (2) Fecal impaction: Code(s): K56.41 - Fecal impaction Status: Acute (3) Orthostatic hypotension: Code(s): I95.1 - Orthostatic hypotension Status: Acute (4) Unsteady gait: Code(s): R26.81 - Unsteadiness on feet Status: Acute (5) Generalized weakness: Code(s): R53.1 - Weakness Status: Acute (6) Benign essential hypertension: Code(s): I10 - Essential (primary) hypertension Status: Chronic (7) Hypothyroidism (acquired): Code(s): E03.9 - Hypothyroidism, unspecified Status: Acute (8) Chronic kidney disease: Code(s): N18.9 - Chronic kidney disease, unspecified Status: Acute (9) Parkinsonism: Qualifiers: Parkinsonism type: unspecified Qualified Code(s): G20 - Parkinson's disease Code(s): G20 - Parkinson's disease Status: Acute (10) Benign prostatic hyperplasia: Code(s): N40.0 - Benign prostatic hyperplasia without lower urinary tract symptoms Status: Acute (11) Pre-diabetes: Code(s): R73.03 - Prediabetes Status: Chronic DS: Summary Hospital Course Reason for hospitalization: influenza A fecal impaction Orthostatic hypertension unsteady gait generalized weakness essential hypertension hypothyroidism CKD parkinsonism BPH pre diabetes Hospital Course: 84-year-old male with Parkinson, hypertension, hyperlipidemia, type 2 diabetes mellitus, hypothyroidism, and benign prostatic hyperplasia who presented to the emergency department via EMS from [facility] for evaluation of weakness. Patient was not meeting sepsis criteria on admission. Viral panel was positive for Flu A. Chest XR was negative for acute cardiopulmonary process. Patient started on tamiflu and mucinex. Patient was noted to have positive orthostatic hypotension. Lisinopril was placed on hold and patient placed in david hose. He remained asymptomatic and orthostatic hypotension resolved during admission. Patient is to continue holding lisinopril at time of discharge and follow up with his PCP in regards to resuming this medication. Patient developed a fecal impaction during admission. He was started on a bowel regimen and had a large bowel movement prior to discharge. He continues to tolerate a diet. At time of discharge patient had no complaints denying chest pain, shortness a breath, palpitations, dizziness/lightheadedness, nausea/vomiting, and abdominal pain. Patient discharged to [facility] in a stable condition. He is to follow up with his primary care provider in 1 week. Status at Discharge Functional status at discharge: uses cane/walker Time Spent with Patient Time attestation: Total time spent providing and/or coordinating discharge services: Time spent: Greater than 30 minutes Exam Narrative: AF HR 76 RR 16 SPo2 99 BP 144/70 General: male in no acute respiratory distress who is nontoxic appearing, sitting up in chair HEENT: Normocephalic. Atraumatic. Extraocular movement intact. Sclera clear and anicteric. No facial asymmetry. Chest: Lungs are clear to auscultation bilaterally. No wheezes or crackles. CV: Heart was regular rate and rhythm. S1/S2. No murmurs, gallops, or rubs. Abd: Abdomen was soft. Nontender. Nondistended. Positive bowel sounds. Neuro: Patient is alert and oriented x4. Speech is clear. DS: Data Data Completed and Pending Completed studies during hospitalization: chest x-ray abdomen x-ray Labs on day of discharge: Labs from last 24 hours 12/06/24 05:47 WBC 4.3 L RBC 3.75 L Hgb 12.0 L Hct 36.2 L MCV 96.5 MCH 32.0 MCHC 33.1 RDW 11.9 Plt Count 205 MPV 9.3 Immature Gran % (Auto) 0.2 Neut % (Auto) 46.2 Lymph % (Auto) 41.5 [place] % (Auto) 8.6 H Eos % (Auto) 3.3 Baso % (Auto) 0.2 Lymph # (Auto) 1.78 [place] # (Auto) 0.4 Eos # (Auto) 0.1 Baso # (Auto) 0.0 Abs Immat Gran (auto) 0.01 Absolute Neuts (auto) 2.0 Absolute Nucleated RBC 0.000 Nucleated RBC % 0.0 Sodium 136 L Potassium 4.3 Chloride 100 Carbon Dioxide 31 H Anion Gap 5 BUN 23 H Creatinine 1.06 Estim Creat Clear Calc 55 Estimated GFR > 60 Glucose 102 Calcium 8.4 Total Bilirubin 0.7 AST 37 ALT 20 Alkaline Phosphatase 86 Total Protein 6.0 L Albumin 3.4 L Discharge Plan Discharge Attending physician on discharge: Luz Elena Mckeon Discharging Clinician: Sheba Parada Anticipated Discharge Date/Time: 12/06/24 13:57 Patient Disposition: [facility] Activity: as tolerated Diet: as tolerated and heart healthy Discharge Instructions: Discharge disposition: Patient admitted to the hospital for weakness Diagnosed with Flu A on viral panel Started on tamiflu, course to be completed on 12/07. Attached is information on this medication Continue mucinex for congestion Isolation precautions per SU[facility]APA Patient had positive orthostatic hypotension on admission which resolved during inpatient stay Patient remains asymptomatic Lisinopril placed on hold, continue holding this medication until follow up with primary care provider Continue david hose Monitor blood pressures Take caution while standing, rising, or moving Change positions slowly taking a break between each position change If you standing feel dizzy sit back down and take a break Patient diagnosed with a fecal impaction, remained asymptomatic Prior to discharge had a bowel movement Started on bowel regimen, continue miralax as needed Eat well balanced meals and stay hydrated Keep active to remain strong Avoid use of diapers or pads Good anika Care every 2 hours Trend urine output Encouraged to continue with yearly vaccinations Return to the emergency department if he developed sudden shortness of breath, chest pain, nausea, vomiting, upset stomach or intractable diarrhea Return to the emergency department if you develop fever greater than 101.5 Follow-up with the primary care physician within 1-2 weeks Thank you for choosing [facility] for your healthcare needs Patient Instructions: Oseltamivir (By mouth), Polyethylene Glycol 3350 (By mouth), Influenza (DC), Hypotension (DC), Fecal Impaction (GEN) Patient Language: Nepalese Follow-up/Referrals: Raj Stevens MD [Primary Care Provider] - 1 Week Discharge Medications: New oseltamivir [Tamiflu] 30 mg capsule 30 mg PO BID 5 Days Qty: 9 0RF polyethylene glycol 3350 [Miralax] 17 gram Powder In Packet 17 g PO QAM Qty: 15 0RF guaifenesin [Mucus Relief ER] 600 mg Tablet Extended Release 12hr 600 mg PO Q12HR Qty: 10 0RF Continued omega-3 fatty acids-fish oil 360-1,200 mg capsule 2 cap PO DAILY multivitamin Tablet 1 tablet PO DAILY atorvastatin 20 mg tablet See Rx Instructions .ROUTE .COMPLEX Qty: 90 1RF Dose Instruction: TAKE 1/2 TABLET BY MOUTH EVERY DAY Rx Instructions: TAKE 1/2 TABLET BY MOUTH EVERY DAY metformin 500 mg tablet See Rx Instructions .ROUTE .COMPLEX Qty: 90 3RF Dose Instruction: TAKE 1 TABLET DAILY Rx Instructions: TAKE 1 TABLET DAILY carbidopa-levodopa 25-100 mg tablet See Rx Instructions .ROUTE .COMPLEX Qty: 270 1RF Dose Instruction: TAKE 1 TABLET BY MOUTH THREE TIMES DAILY Rx Instructions: TAKE 1 TABLET BY MOUTH THREE TIMES DAILY tamsulosin 0.4 mg capsule See Rx Instructions .ROUTE .COMPLEX Qty: 90 1RF Dose Instruction: TAKE 1 CAPSULE DAILY Rx Instructions: TAKE 1 CAPSULE DAILY levothyroxine [Synthroid] 75 mcg tablet See Rx Instructions .ROUTE .COMPLEX Qty: 90 2RF Dose Instruction: TAKE 1 TABLET DAILY Rx Instructions: TAKE 1 TABLET DAILY Held lisinopril 5 mg tablet See Rx Instructions .ROUTE .COMPLEX Qty: 90 1RF Hold Instructions: Resume on 01/11/25. Hold until follow up with PCP. Dose Instruction: TAKE 1 TABLET DAILY Rx Instructions: TAKE 1 TABLET DAILY Date of admission: 12/01/24 21:46 Primary Care Provider: Raj Stevens Admitting Provider: Meagan Brownlee Attending physician on admission: Sheba Parada Condition: Stable Hospitalist MIPS Heart Failure (Exclusion) Patient has history of Heart Transplant or Left Ventricular Assistive Device?: No IF YES, STOP HERE Heart Failure (Qualifier) Patient has current or prior documentation of LVEF less than or equal to 40%, or mod/servere depressed LVSF?: No IF NO, STOP HERE
== END 2024-12-06 15:15 | DRG 195 ==
LOC: ANHED 21:53 → ANH2MED 22:12
PROVIDERS: Nurse Practitioner Family; Physician Assistant; Admitting Provider Internal Medicine; Emergency Provider Emergency Medicine; PCP Internal Medicine; Visit Provider Student in an Organized Health Care Education/Training Program
DX: J10.1 Influenza due to other identified influenza virus with other respiratory manifestations (principal); E03.9 Hypothyroidism, unspecified; R26.81 Unsteadiness on feet; G20.A1 Parkinson's disease without dyskinesia, without mention of fluctuations; I12.9 Hypertensive chronic kidney disease with stage 1 through stage 4 chronic kidney disease, or unspecified chronic kidney disease; N18.9 Chronic kidney disease, unspecified; N40.0 Benign prostatic hyperplasia without lower urinary tract symptoms; R73.03 Prediabetes; I95.1 Orthostatic hypotension; K56.41 Fecal impaction
CPT/HCPCS: 36415; 71045; 74018; 80048; 80053; 83735; 84443; 85025; 85027; 87636; 93005; 97110; 97161; 97165; 97530; 97535; 99285; A9270; J1650; J7040

== ENCOUNTER 2024-12-17 10:46 | Outpatient (CLI) | payer MEDICARE, OTHER, SELFPAY ==
--- OUTSIDE RECORDS SUMMARY | 2024-12-17 11:21 | XMS_ITS | Continuity of Care Document ---
Author Organization [facility] Address [address] [place] [address] Phone Care Team Providers Care Pump Installer Name Role Phone Nela Gramajo Unavailable Unavailable [...] Diagnoses Date Provider Providers Copied on Encounter [facility], [address] [place] [address] [address], [place], [place], [id number], [place] tel:[phone] [facility] No Information 0 Rox Rondon. [address] , [address], [place], [address], [place]. tel:[phone] [facility], [address], [place], [place], [id number], [place] tel:[phone] [facility] No Information - 0 Rox Rondon. [address] , [address], [place], [place], [facility] [place], [place]. tel:[phone] [facility], [address], [place], [place], [id number], [place] tel:[phone] [facility] No Information 2-201 0 Lopez OD Shemar. [address] , [address], [place], [facility] [place]. tel:[phone] [facility], [address], [place], [place], [address], [place] tel:[phone] [facility] No Information - 0 Rox Rondon. [address] , [address], [place], [facility] [place], [place]. tel:[phone] [facility], [address], [place], [place], [address], [place] tel:[phone] [facility] No Information 3-201 0 Rox Rondon. [address] , [address], [place], [facility] [place], [place]. tel:[phone] Referring Provider: Nela Trinidad, [address], [place], [facility] [place]. tel:[phone] [facility], [address], [place], [place], [id number], [place] tel:[phone] [facility] No Information 0 Lopez OD Shemar. [address] , [address], [place], [facility] [place], [place]. tel:[phone] [facility], [address], [place], [place], [id number], tel:[phone] [facility] No Information May-0 8-201 0 Lopez OD Shemar. [address] [facility] , [address], [place], [facility] [place], . tel:[phone] [facility], [address], [place], [place], [id number], tel:[phone] [facility] No Information May-0 7-[address] [facility] [address] , [address], [place], [facility] [place], . tel:[phone] [facility], [address] [place] [address] [address], [place], [place], [id number], tel:[phone] [facility] No Information May-0 7-201 0 Rox Rondon. [facility] , [address], [place], [facility] [place], . tel:[phone] [facility], [address], [place], [place], [id number], tel:[phone] [facility] No Information Apr-2 9-201 0 Rox Rondon. [facility] , [address], [place], [facility] [place], . tel:[phone] Referring Provider: Nela Trinidad, [address] [place], [place] [address], [place], [facility] [place]. tel:[phone] Family History Family Member Type Diagnosis Age [...]
[2024-12-17 11:26] LABS: Basophils Percent Auto 0.3 % (0.2-1.2); Eosinophils Absolute Auto 0.1 K/mm3 (0-0.3); Eosinophils Percent Auto 1.4 % (0-4.4); Hematocrit 37.6 % (42.0-52.0); Hemoglobin 12.2 g/dL (14.0-18.0); Immature Granulocyte Absolute 0.04 K/mm3 (0.00-0.031); Immature Granulocyte Percent A 0.5 % (0-0.5); Lymphocytes Absolute Auto 2.24 K/mm3 (0.9-3.2); Lymphocytes Percent Auto 30.3 % (18.3-44.2); Mean Corpuscular HGB Conc 32.4 g/dl (32-36); Mean Corpuscular Hemoglobin 31.7 pg (26-34); Mean Corpuscular Volume 97.7 fl (80-100); Mean Platelet Volume 9.3 fl (7.4-10.4); Monocytes Absolute Auto 0.6 K/mm3 (0.1-0.6); Monocytes Percent Auto 7.4 % (2.6-8.5); Neutrophils Absolute Auto 4.5 K/mm3 (1.3-6.7); Neutrophils Percent Auto 60.1 % (45.5-73.1); Platelet Count Result 331 k/mm3 (150-375); Red Blood Count 3.85 M/mm3 (4.6-6.20); Red Cell Distribution Width 12.1 % (11.5-14.5); White Blood Count 7.4 K/mm3 (4.5-10.0)
[2024-12-17 11:48] LABS: Anion Gap 10 mmol/L (4-12); Blood Urea Nitrogen 23 mg/dL (9-20); Calcium 8.5 mg/dL (8.4-10.2); Carbon Dioxide 26 mmol/L (22-30); Chloride 103 mmol/L (98-107); Estimated Glomerular Filt Rate > 60; Glucose 109 mg/dL (65-110); Potassium 4.3 mmol/L (3.4-5.0); Sodium 139 mmol/L (137-145)
[2024-12-17 12:27] LABS: Iron 124 ug/dL (49-181)
[2024-12-17 12:40] LABS: Percent Iron Saturation 54 % (20-50)
== END 2024-12-17 10:47 | disposition home or self-care (01) ==
LOC: ANHLAB 10:47
PROVIDERS: PCP Internal Medicine; Visit Provider Internal Medicine
DX: D50.9 Iron deficiency anemia, unspecified (principal); I10 Essential (primary) hypertension
CPT/HCPCS: 36415; 80048; 82728; 83540; 83550; 85025

== ENCOUNTER 2024-12-18 18:06 | Emergency (ER) | payer OTHER, MEDICARE, SELFPAY ==
--- NOTE | 2024-12-18 18:07 | ED.WOUNDLAC ---
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 Patient states he thinks his glasses cut his eyebrow. Denies any loss of consciousness, headache, neck pain. Patient is not on blood thinners. Denies any numbness, tingling or weakness to extremities. Denies any dizziness, lightheadedness, nausea, vomiting. Related Data Home Medications ?Medication ?Instructions ?Recorded ?Confirmed ?Last Taken ?Type multivitamin 1 tablet PO DAILY 09/29/20 12/17/24 12/06/24 09:00 History omega-3 fatty acids-fish oil 360 2 cap PO DAILY 02/20/24 12/17/24 12/06/24 09:00 History mg-1,200 mg capsule Allergies Allergy/AdvReac Type Severity Reaction Status Date / Time No Known Allergies Allergy Unknown Verified 12/18/24 18:17 Review of Systems Review of Systems: All systems reviewed & are unremarkable except as noted in HPI and below Constitutional: Constitutional: Denies body ache(s), Denies chills, Denies fatigue, Denies fever(s), Denies headache(s), Denies malaise and Denies weakness Eyes: Eyes: Denies blurry vision, Denies irritation and Denies loss of vision ENT: Denies otalgia, Denies headache(s), Denies nasal discharge, Denies sinus pain and Denies sore throat Cardiovascular: Cardiovascular: Denies chest pain, Denies irregular heart rhythm and Denies dyspnea Respiratory: Respiratory: Denies dyspnea Gastrointestinal: Gastrointestinal: Denies abdominal pain, Denies melena, Denies hematochezia, Denies diarrhea, Denies nausea and Denies vomiting Musculoskeletal: Musculoskeletal: Denies back pain, Denies myalgias and Denies arthralgias Integumentary/Breasts: Skin/Breast: Denies pruritus, Denies rash and Reports wounds Neurologic: Denies headache(s), Denies loss of vision and Denies weakness Psychiatric: Psychiatric: Reports no additional psychiatric complaints Endocrine: Endocrine: Denies fatigue [facility] Past Medical History Medical History Weakness BPH loc w urin obs/LUTS Benign prostatic hyperplasia Chronic kidney disease History of skin cancer Parkinsonism Hypothyroidism (acquired) History of CVA in adulthood Vitamin D deficiency 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 Code status: Full code. Smoking packs per day: 0.5 Smoking cigarettes per day: 10.0 Years smoked: 10 Smoking pack-years: 5.00 Smoking status: Former smoker Tobacco type: cigarettes Smoking end date: 11/13/72 Alcohol intake: never Drinks per week: 2 Alcohol use details: social alcohol use in moderation Substance use: never Substance use type: does not use Do You Feel Safe in your Home?: Yes Lack of Transportation: No Lack of Food: Never True Current Housing: I Have Housing Concerned About Future Housing: No Difficulty Paying Gas/Electric Bills: No Difficulty Paying for Meds: No Currently Unemployed: No Education: High School Diploma/GED Difficulty w/ Childcare or Family Care: No Living arrangements: [facility] Additional living arrangements comments: Lives alone in independent living at [facility]. Occupation/Education: retired Additional occupation/education comments: Retired [employer]. Spiritual care concerns: No Comments At time of signature, agree with nursing past medical, surgical, social and family history. There is no relevant family history pertinent to the presenting complaint. Exam Const: General: cooperative, healthy appearing, comfortable, no acute distress and well nourished Nutritional Appearance: well nourished Orientation/consciousness: patient oriented x3 Limitations: no limitations HENMT: Head: normal to inspection, normocephalic and atraumatic Ears: hearing grossly normal bilaterally and external ears normal Face/Nose/Sinus: Normal external nose present, normal facial exam and face symmetric Face and sinus: normal facial exam, face symmetric, abrasion on the right periorbital and no tenderness Face images:  1. 1.5x1 cm abrasion. bleeding controlled. Mouth: Yes lip normal Eyes: General: appearance normal, both eyes and all related structures Alignment and Position: alignment normal and position normal Periorbital: periorbital findings normal Eyelids: eyelids normal Pupils: Equal, round and reactive pupils present EOM: EOMs intact bilaterally Neck: Neck: normal visual inspection, full ROM and supple Chest: Chest palpation & inspection: normal inspection of the chest Resp: Effort & Inspection: normal respiratory effort and able to speak in complete sentences Auscultation: clear to auscultation bilaterally Cardio: Rate: regular rate Rhythm: regular rhythm Heart sounds: S1 normal heart sound present and S2 normal heart sound present GI: Inspection: normal to inspection Skin: General skin exam: normal color and no rashes or lesions noted Neuro: General: patient oriented x3 and moves all extremities Cranial nerves: Yes CN's II-XII intact bilaterally and Yes Equal, round and reactive pupils present Cognition (Neuro): normal cognition Speech: normal speech Gait exam (Neuro): Normal gait present Motor exam (neuro): 5/5 motor strength present throughout, Normal motor muscle tone present throughout and Motor abnormalities not present Sensory Exam: normal sensation Extrem: General: normal to inspection, full ROM and no edema Psych: Appearance: grossly normal and well kempt Mental Status: mental status grossly normal Speech and movement: Normal speech and movement present Affect: normal affect Attitude: cooperative Thought process: Normal thought process present Course Course Emergency Course: Patient is aware of diagnosis, understands and agrees to treatment plan. Anticipatory guidance given. Patient agrees to follow-up as directed and is aware of reasons to seek care at the emergency department. Portions of this record may have been created with voice recognition software Level of Care: Express Care Visit Vital Signs Vital signs: Reviewed MDM - Wound/Laceration MDM Narrative Medical decision making narrative: Wound cleansed and covered with antibiotic ointment and Band-Aid. Discussed potential concussion symptoms and when to go to the emergency department for concern your cranial bleed. Patient and son both verbalized understanding and had no further questions. Discussed patient will have black eye and to use ice when he gets home. Pt well hydrated appearing, in no respiratory distress, hemodynamically stable. Recommend supportive care. The patient is stable at time of discharge the clinical impression was discussed and the patient was given the opportunity to ask questions, which were addressed as completely as possible given the information available at present. Anticipatory guidance and return to care precautions were discussed and the importance of primary care follow-up was stressed and encouraged. The patient voiced understanding of the plan, indications to return, and the need for follow-up. Exam findings show no acute concerns or changes Patient is appropriate for outpatient treatment and follow-up. Differential Diagnosis Differential diagnosis: Likely abrasion and other (Concussion, facial fracture, less likely intracranial abnormality) Medical Records Attestation: I reviewed the patient's medical records. Discharge Plan Discharge Clinical Impression: Fall, Abrasion of right eyebrow Patient Disposition: Home, Self-Care Condition: Stable Instructions: Abrasion (ED), Acute Wounds (ED) Additional Instructions: Wound dressed with topical Bacitracin and sterile gauze. Apply Bactroban after washing with soap and water twice a day Keep wound covered. Go to the emergency department if you have worsening redness, swelling or pus. Based on the events which brought you to the ER today, it is possible that you may have a concussion. A concussion occurs when there is a blow to the head or body, with enough force to shake the brain and disrupt how the brain functions. You may experience symptoms such as headaches, sensitivity to light/noise, dizziness, cognitive slowing, difficulty concentrating / remembering, trouble sleeping and drowsiness. These symptoms may last anywhere from hours/days to potentially weeks/months. While these symptoms are very frustrating and perhaps debilitating, it is important that you remember that they will improve over time. Everyone has a different rate of recovery; it is difficult to predict when your symptoms will resolve. In order to allow for your brain to heal after the injury, we recommend that you see your primary physician or a physician knowledgeable in concussion management. We will give you a list of neurologists, they are the specialists for head injuries. We also advise you to let your body and brain rest: avoid physical activities (sports, gym, and exercise) and reduce cognitive demands (reading, texting, TV watching, computer use, video games, etc). School attendance, after-school activities and work may need to be modified to avoid increasing symptoms. We recommend against driving until until all symptoms have resolved. You should take 650mg of Acetaminophen (Tylenol) every 4 hours as needed for pain control; however, taking anti-inflammatory medication (Motrin/Advil/Ibuprofen) is not advised. Come back to the ER right away if you are having repeated episodes of vomiting, severe/worsening headache/dizziness or any other symptom that alarms you. We recommended that someone stay with you for the next 24 hours to monitor for these worrisome symptoms. Patient Language: Arabic Prescriptions: New mupirocin 2 % ointment 1 applic topical BID Qty: 15 0RF No Action omega-3 fatty acids-fish oil 360-1,200 mg capsule 2 cap PO DAILY lisinopril 5 mg tablet See Rx Instructions .ROUTE .COMPLEX Qty: 90 1RF Dose Instruction: TAKE 1 TABLET DAILY Rx Instructions: TAKE 1 TABLET DAILY multivitamin Tablet 1 tablet PO DAILY polyethylene glycol 3350 [Miralax] 17 gram Powder In Packet 17 g PO QAM Qty: 15 0RF atorvastatin 10 mg Tablet 10 mg PO DAILY Qty: 30 0RF metformin 500 mg tablet See Rx Instructions .ROUTE .COMPLEX Qty: 30 3RF Dose Instruction: TAKE 1 TABLET DAILY Rx Instructions: TAKE 1 TABLET DAILY levothyroxine 75 mcg tablet See Rx Instructions .ROUTE .COMPLEX Qty: 30 2RF Dose Instruction: TAKE 1 TABLET DAILY Rx Instructions: TAKE 1 TABLET DAILY tamsulosin 0.4 mg capsule See Rx Instructions .ROUTE .COMPLEX Qty: 30 1RF Dose Instruction: TAKE 1 CAPSULE DAILY Rx Instructions: TAKE 1 CAPSULE DAILY carbidopa-levodopa 25-100 mg tablet See Rx Instructions .ROUTE .COMPLEX Qty: 90 1RF Dose Instruction: TAKE 1 TABLET BY MOUTH THREE TIMES DAILY Rx Instructions: TAKE 1 TABLET BY MOUTH THREE TIMES DAILY Follow-up/Referrals: Raj Stevens MD [Primary Care Provider] - 3 Days Time of Disposition: 18:28
[2024-12-18 18:14] VITALS: BP 164/97; PULSE 79; RESP 16; TEMP 36.6; O2SAT 99
== END 2024-12-18 18:30 | disposition home or self-care (01) ==
PROVIDERS: Emergency Provider Nurse Practitioner Family; PCP Internal Medicine
DX: S00.211A Abrasion of right eyelid and periocular area, initial encounter (principal); W18.09XA Striking against other object with subsequent fall, initial encounter; N40.1 Benign prostatic hyperplasia with lower urinary tract symptoms; I12.9 Hypertensive chronic kidney disease with stage 1 through stage 4 chronic kidney disease, or unspecified chronic kidney disease; N18.9 Chronic kidney disease, unspecified; E03.9 Hypothyroidism, unspecified; E78.5 Hyperlipidemia, unspecified; G20.C Parkinsonism, unspecified; R73.03 Prediabetes; Z85.828 Personal history of other malignant neoplasm of skin; Z86.73 Personal history of transient ischemic attack (TIA), and cerebral infarction without residual deficits
CPT/HCPCS: 99213; G0463

== ENCOUNTER 2025-03-28 09:31 | Outpatient (CLI) | payer MEDICARE, OTHER, SELFPAY ==
--- OUTSIDE RECORDS SUMMARY | 2025-03-28 09:37 | XMS_ITS | Continuity of Care Document ---
Author Organization [facility] Address [address] [place] [address] Phone Care Team Providers Care Grade Foreman Name Role Phone Nela Gramajo Unavailable Unavailable [...] Diagnoses Date Provider Providers Copied on Encounter Merged with [facility], [address] [place] [address] [address], [place], [place], [address], [place] tel:[phone] SEC [facility] No Information 0 Rox Rondon. [address] , [address], [place], [address], [place]. tel:[phone] Merged with [facility], [address], [place], [place], [address], [place] tel:[phone] [facility] No Information - 0 Rox Rondon. [address] , [address], [place], [place], [facility], [place]. tel:[phone] [facility], [address], [place], [place], [address], [place] tel:[phone] [facility] No Information 2-201 0 Lopez OD Shemar. [address] , [address], [place], [facility], [place]. tel:[phone] [facility], [address], [place], [place], [address], [place] tel:[phone] [facility] No Information - 0 Rox Rondon. [address] , [address], [place], [facility], [place]. tel:[phone] [facility], [address], [place], [place], [address], [place] tel:[phone] [facility] No Information 3-201 0 Rox Rondon. [address] , [address], [place], [facility], [place]. tel:[phone] Referring Provider: Nela Trinidad, [address], [place], [facility]. tel:[phone] [facility], [address], [place], [place], [address], [place] tel:[phone] [facility] No Information 0 Lopez OD Shemar. [address] , [address], [place], [facility], [place]. tel:[phone] [facility], [address], [place], [place], [address], tel:[phone] [facility] No Information May-0 8-201 0 Lopez OD Shemar. [address] [facility] , [address], [place], [facility], . tel:[phone] [facility], [address] [facility] [address], [place], [place], [address], tel:[phone] [facility] No Information May-0 7-201 0 Rox Rondon. [address] [facility] , [address], [place], [facility], . tel:[phone] Merged with [facility], [address] [place] [address] [address], [place], [place], [address], tel:[phone] [facility] No Information May-0 7-201 0 Rox Rondon. [facility] , [address], [place], [facility], . tel:[phone] Merged with [facility], [address] [facility] [address], [place], [place], [address], tel:[phone] [facility] No Information Apr-2 9-201 0 Rox Rondon. [facility] , [address], [place], [facility], . tel:[phone] Referring Provider: Nela Trinidad, [address] [place], [place] [address], [place], [facility]. tel:[phone] Family History Family Member Type Diagnosis Age At Onset No Information Payers Payer name Insurance type Covered republican ID Authoriza tion(s) No Information Social History [...]
[2025-03-28 12:22] LABS: Basophils Percent Auto 0.3 % (0.2-1.2); Eosinophils Absolute Auto 0.4 K/mm3 (0-0.3); Eosinophils Percent Auto 6.1 % (0-4.4); Hematocrit 40.8 % (42.0-52.0); Immature Granulocyte Absolute 0.23 K/mm3 (0.00-0.031); Immature Granulocyte Percent A 3.8 % (0-0.5); Lymphocytes Absolute Auto 1.86 K/mm3 (0.9-3.2); Lymphocytes Percent Auto 30.8 % (18.3-44.2); Mean Corpuscular HGB Conc 31.9 g/dl (32-36); Mean Corpuscular Hemoglobin 31.3 pg (26-34); Mean Corpuscular Volume 98.3 fl (80-100); Mean Platelet Volume 9.7 fl (7.4-10.4); Monocytes Absolute Auto 0.4 K/mm3 (0.1-0.6); Monocytes Percent Auto 7.3 % (2.6-8.5); Neutrophils Absolute Auto 3.1 K/mm3 (1.3-6.7); Neutrophils Percent Auto 51.7 % (45.5-73.1); Platelet Count Result 246 k/mm3 (150-375); Red Blood Count 4.15 M/mm3 (4.6-6.20)
[2025-03-28 12:52] LABS: Alanine Aminotransferase 10 U/L (6-50); Alkaline Phosphatase 57 U/L (38-126); Anion Gap 8 mmol/L (4-12); Aspartate Amino Transferase 36 U/L (17-59); Bilirubin,Total 0.7 mg/dL (0.2-1.3); Blood Urea Nitrogen 22 mg/dL (9-20); Calcium 8.9 mg/dL (8.4-10.2); Carbon Dioxide 27 mmol/L (22-30); Chloride 104 mmol/L (98-107); Cholesterol 186 mg/dL (0-200); Estimated Glomerular Filt Rate 57; Glucose 111 mg/dL (65-110); HDL Direct 44 mg/dL; Potassium 4.2 mmol/L (3.4-5.0); Sodium 139 mmol/L (137-145); Triglycerides 88 mg/dL (<150)
[2025-03-28 12:57] LABS: Iron 71 ug/dL (49-181)
[2025-03-28 13:03] LABS: LDL Cholesterol Direct 101 mg/dL
[2025-03-28 13:09] LABS: Percent Iron Saturation 29 % (20-50)
[2025-03-28 13:22] LABS: Free T4 Free Thyroxine 1.54 ng/dL (0.78-2.19)
[2025-03-28 13:29] LABS: Hemoglobin A1C 5.6 % (<5.7)
== END 2025-03-28 09:32 | disposition home or self-care (01) ==
LOC: ANHGOSHLAB 09:32
PROVIDERS: PCP Internal Medicine; Visit Provider Internal Medicine
DX: D50.9 Iron deficiency anemia, unspecified (principal); I10 Essential (primary) hypertension; R73.03 Prediabetes; E03.9 Hypothyroidism, unspecified; E78.2 Mixed hyperlipidemia
CPT/HCPCS: 36415; 80053; 80061; 82728; 83036; 83540; 83550; 84439; 84443; 85025

== ENCOUNTER 2025-06-03 09:47 | Outpatient (CLI) | payer MEDICARE, OTHER, SELFPAY ==
--- NOTE | ~2025-06-03 | XR_ITS ---
XR abdomen obstructive series 06/03/2025 10:17 Indication: Abdomen pain for 3 days Procedure: Supine and upright views of the abdomen Comparison: 12/05/2024 Findings: There are dilated small bowel and segments of colon filled with gas throughout the abdomen. No transition point identified. Findings compatible with ileus. No abnormal calcifications. No free air. Lung bases unremarkable. Impression: 1: Gas-filled distended small bowel and colon, consistent with ileus. Reviewed, dictated and finalized at location A. Impression: 1: Gas-filled distended small bowel and colon, consistent with ileus.
--- OUTSIDE RECORDS SUMMARY | 2025-06-03 09:56 | XMS_ITS | Continuity of Care Document ---
Author Organization [facility] Address [address] [place] [address] Phone Care Team Providers Care Sand Mill Operator Facing Sand Name Role Phone Nela Gramajo Unavailable Unavailable [...] Diagnoses Date Provider Providers Copied on Encounter [facility], [address] [place] [address] [address], [place], [place], [address], [place] tel:[phone] [facility] No Information 0 Rox Rondon. [address], [place], [address], [place]. tel:[phone] [facility], [address], [place], [place], [address], [place] tel:[phone] [facility] No Information - 0 Rox Rondon. [address], [place], [facility], [place]. tel:[phone] [facility], [address], [place], [place], [address], [place] tel:[phone] [facility] No Information 2-201 0 Lopez OD Shemar. [address], [place], [facility], [place]. tel:[phone] [facility], [address], [place], [place], [address], [place] tel:[phone] [facility] No Information - 0 Rox Rondon. [address], [place], [facility], [place]. tel:[phone] [facility], [address], [place], [place], [address], [place] tel:[phone] [facility] No Information 3-201 0 Rox Rondon. [address], [place], [facility], [place]. tel:[phone] Referring Provider: Nela Trinidad, [address], [place], [facility]. tel:[phone] [facility], [address], [place], [place], [address], [place] tel:[phone] [facility] No Information 0 Lopez OD Shemar. [address] , [address], [place], [facility], [place]. tel:[phone] [facility], [address], [place], [place], [address], tel:[phone] [facility] No Information May-0 8-201 0 Lopez OD Shemar. [address] [facility] , [address], [place], [facility], . tel:[phone] [facility], [address] [facility] [address], [place], [place], [address], tel:[phone] [facility] No Information May-0 7-201 0 Rox Rondon. [address] [facility] , [address], [place], [facility], . tel:[phone] [facility], [address] [place] [address] [address], [place], [place], [address], tel:[phone] [facility] No Information May-0 7-201 0 Rox Rondon. [facility] Center , [address], [place], [facility], . tel:[phone] [facility], [address] [facility] [address], [place], [place], [address], tel:[phone] [facility] No Information Apr-2 9-201 0 Rox Rondon. Critical access [facility] Center , [address], [place], [facility], . tel:[phone] Referring Provider: Nela Trinidad, [address] [place], [place] [address]ate [address], [place], [facility]. tel:[phone] Family History Family Member Type Diagnosis Age At Onset No Information Payers Payer name Insurance type Covered alliance party ID Authoriza tion(s) No Information Social [...]
== END 2025-06-03 09:48 | disposition home or self-care (01) ==
PROVIDERS: PCP Internal Medicine; Visit Provider Internal Medicine
DX: R10.9 Unspecified abdominal pain (principal); K56.41 Fecal impaction
CPT/HCPCS: 74019

== ENCOUNTER 2025-06-05 08:47 | Emergency (ER) | payer MEDICARE, OTHER, SELFPAY ==
--- NOTE | ~2025-06-05 | CT_ITS ---
CLINICAL INDICATION: Constipation COMPARISON: 08/09/2019. TECHNIQUE: Multiple contiguous axial images of the abdomen and pelvis were performed following the ad ministration of with 100 mL Omnipaque-350 intravenous contrast The dose-length product (DLP) was 435.38 mGy-cm. Automated exposure control and iterative reconstruction technique were employed. FINDINGS/OBSERVATIONS: Visualized lower thorax: Bibasilar atelectasis. The remainder of the bilateral lung bases are clear. The heart is of normal size, without pericardial effusion. Small hiatal hernia is present. Liver: The liver demonstrates homogeneous enhancement and is not enlarged. Gallbladder and biliary system: The gallbladder is only minimally distended, and otherwise unremarkable. Pancreas: The pancreas enhances homogeneously without ductal dilatation. Spleen: The spleen enhances homogeneously and is not enlarged. Kidneys: Well-circumscribed focus of fluid attenuation exophytic from the lower pole of the left kidn ey, statistically a cyst. The remainder of the bilateral kidneys otherwise enhance symmetrically without hydronephrosis or simran l calculi. Adrenal glands: Unremarkable. Gastrointestinal tract: Significant fecal stasis is identified throughout nearly the entirety of the colon. Within the sigmoid colon, there is significant luminal narrowing, for which a stricture is suspected. This continues into the rectum which is of normal caliber. Appendix: The appendix is not definitively visualized. However, no pericecal inflammatory change is identified suggest the presence of acute appendicitis. Vasculature: Calcified atherosclerotic disease. Lymph nodes: No pathologically enlarged or morphologically suspicious lymph nodes within the retroperitoneum or at the root of the mesentery. Pelvic structures: The bladder is only minimally distended, and otherwise unremarkable. The prostate gland is enlarged demonstrating mass effect on the base of the bladder. Body wall and musculoskeletal: Age-appropriate degenerative disease within the lower thoracic and lumbosacral spines. IMPRESSION: Findings within the sigmoid colon for which a stricture is suspected. Significant fecal stasis is otherwise demonstrated. Reviewed, dictated and finalized at location A.
--- OUTSIDE RECORDS SUMMARY | 2025-06-05 08:52 | XMS_ITS | Continuity of Care Document ---
Author Organization [facility] Address [address] [place] [address] Phone Care Team Providers Care Rfid Engineer Name Role Phone Nela Gramajo Unavailable Unavailable [...] Diagnoses Date Provider Providers Copied on Encounter [facility], [address] [place] [address] [address], [place], [place], [address], [place] tel:[phone] SEC [facility] No Information 0 Rox Rondon. [address], [place], [address], [place]. tel:[phone] [facility], [address], [place], [place], [address], [place] tel:[phone] [facility] No Information - 0 Rox Rondon. [address], [place], [facility], [place]. tel:[phone] [facility], [address], [place], [place], [address], [place] tel:[phone] [facility] No Information 2-201 0 Lopez OD Shemar. [address] , [address], [place], [facility], [place]. tel:[phone] [facility], [address], [place], [place], [address], [place] tel:[phone] [facility] No Information - 0 Rox Rondon. [address] , [address], [place], [facility], [place]. tel:[phone] [facility], [address], [place], [place], [address], [place] tel:[phone] [facility] No Information 3-201 0 Rox Rondon. [address] , [address], [place], [facility], [place]. tel:[phone] Referring Provider: Nela Trinidad, [address], [place], [facility]. tel:[phone] [facility], [address], [place], [place], [address], [place] tel:[phone] [facility] No Information 0 Lopez OD Shemar. [address] , [address], [place], [facility], [place]. tel:[phone] [facility], [address], [place], [place], [address], tel:[phone] [facility] No Information May-0 8-201 0 Lopez OD Shemar. [address] [facility] , [address], [place], [facility], . tel:[phone] [facility], [address] [facility] [address], [place], [place], [address], tel:[phone] [facility] No Information May-0 7-201 0 Rox Rondon. [address] [facility] , [address], [place], [facility], . tel:[phone] [facility], [address] [place] [address] [address], [place], [place], [address], tel:[phone] [facility] No Information May-0 7-201 0 Rox Rondon. [facility] , [address], [place], [facility], . tel:[phone] [facility], [address] [facility] [address], [place], [place], [address], tel:[phone] [facility] No Information Apr-2 9-201 0 Rox Rondon. [facility] , [address], [place], [facility], . tel:[phone] Referring Provider: Nela Trinidad, [address] [place], [place] [address]ate [address], [place], [facility]. tel:[phone] Family History Family Member Type Diagnosis Age [...]
[2025-06-05 09:40] VITALS: BP 141/89; PULSE 79; RESP 18; TEMP 36.4; O2SAT 97
[2025-06-05 11:58] VITALS: BP 186/99; PULSE 65; RESP 14; TEMP 36.3; O2SAT 99
[2025-06-05 12:01] VITALS: BP 186/99; PULSE 65; RESP 14; TEMP 36.3; O2SAT 100
--- NOTE | 2025-06-05 12:24 | ED.ABDPAIN ---
HPI - Abdominal Pain General Chief Complaint: Abdominal Pain Stated Complaint: no bowel movement x6 days Time Seen by Provider: 06/05/25 12:03 Source: patient Mode of arrival: ambulatory Limitations: no limitations History of Present Illness HPI narrative: 85-year-old male in for abdominal pain. He had a fall about a week ago, had some rib fractures. Since it has been less active. Has not had a bowel movement in 6 days. He has some mild abdominal cramping. Urinating normally. No vomiting. Related Data Home Medications ?Medication ?Instructions ?Recorded ?Confirmed ?Last Taken ?Type multivitamin 1 tablet PO DAILY 09/29/20 06/03/25 12/06/24 09:00 History omega-3 fatty acids-fish oil 360 2 cap PO DAILY 02/20/24 06/03/25 12/06/24 09:00 History mg-1,200 mg capsule Allergies Allergy/AdvReac Type Severity Reaction Status Date / Time No Known Allergies Allergy Unknown Verified 06/05/25 12:04 Review of Systems Review of Systems: All systems reviewed & are unremarkable except as noted in HPI and below PMFSH Past Medical History Medical History Rib fractures Fecal incontinence Weakness BPH loc w urin obs/LUTS Benign prostatic hyperplasia Chronic kidney disease History of skin cancer Parkinsonism Hypothyroidism (acquired) History of CVA in adulthood Vitamin D deficiency 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 Code status: Full code. Smoking packs per day: 0.5 Smoking cigarettes per day: 10.0 Years smoked: 10 Smoking pack-years: 5.00 Smoking status: Former smoker Tobacco type: cigarettes Smoking end date: 11/13/72 Alcohol intake: never Drinks per week: 2 Alcohol use details: social alcohol use in moderation Substance use: never Substance use type: does not use Do You Feel Safe in your Home?: Yes Lack of Transportation: No Lack of Food: Never True Current Housing: I Have Housing Concerned About Future Housing: No Difficulty Paying Gas/Electric Bills: No Difficulty Paying for Meds: No Currently Unemployed: No Education: High School Diploma/GED Difficulty w/ Childcare or Family Care: No Living arrangements: [facility] Additional living arrangements comments: Lives alone in independent living at [facility]. Occupation/Education: retired Additional occupation/education comments: Retired [employer]. Spiritual care concerns: No Exam Narrative: Constitutional: Generally well appearing, no acute distress Head: Atraumatic, no deformities. Eyes: Pupils equal, round, and reactive to light. Neck: Supple, no tracheal deviation, no JVD. ENMT: Mucous membranes moist Cardiovascular: S1, S2 auscultated. No murmurs, rubs, or gallops. No S3/S4. Normal Distal pulses. No peripheral edema. Respiratory: Lung sounds equal. No wheezes, rales, or rhonchi. Gastrointestinal: Abdomen was soft and non-tender. Non-distended. No rebound or guarding. Genitourinary: Deferred Musculoskeletal: Normal muscle tone and bulk. No obvious deformities or tenderness over extremities. Skin: No rashes. Neurological: Strength 5/5 in extremities. Cranial nerves I-XII grossly intact. Distal sensation intact. Mental Status: Awake, alert and oriented x3. Follows commands Course Vital Signs Vital signs: Vital Signs Temperature 36.4 C 06/05/25 09:40 Pulse Rate 79 06/05/25 09:40 Respiratory Rate 18 06/05/25 09:40 Blood Pressure 141/89 H 06/05/25 09:40 Pulse Oximetry 97 06/05/25 09:40 Temperature 36.3 C L 06/05/25 12:01 Pulse Rate 78 06/05/25 13:55 Respiratory Rate 16 06/05/25 13:55 Blood Pressure 167/94 H 06/05/25 13:55 Pulse Oximetry 98 06/05/25 13:55 Oxygen Delivery Room Air 06/05/25 11:58 MDM - Abdominal Pain MDM Narrative Medical decision making narrative: 85-year-old male presenting for some constipation issues for the last 6 days. Has been having some liquid small stool but no good stools and feels like his abdomen is bloated. Exam shows he is soft, nontender in the abdomen was seen but slightly distended. Concern is for possible bowel obstructions obtaining CT abdomen pelvis, basic labs. Workup reviewed and interpreted. CT shows evidence of a stricture in the sigmoid region. I discussed with GI Dr. Crystal was not concerned about obstruction and suggested MiraLax q.4 hours as well as a soapsuds enema. Return in 2 days if he does not have any bowel movement. Follow up with GI as an outpatient for colonoscopy to further evaluate the sigmoid stricture. Patient and family agreeable with plan. Pt feeling improved and would like to go home at this point. Return precautions were given to the patient include any new or worsening symptoms or development of and not limited to any chest pain, shortness of breath, lightheadedness, abdominal pain, fevers, chills. Patient understands and agrees. They are to follow-up with her PCP. All questions were answered. I reviewed and interpreted the patient's vital signs, pulse oximetry, health and physical education teacher, history, allergies, and labs and imaging workup. Lab Data 06/05/25 12:35 06/05/25 12:35 Labs: Lab Results 06/05/25 Range/Units 12:35 WBC 5.5 (4.5-10.0) K/mm3 RBC 3.89 L (4.6-6.20) M/mm3 Hgb 12.4 L (14.0-18.0) g/dL Hct 37.5 L (42.0-52.0) % MCV 96.4 (80-100) fl MCH 31.9 (26-34) pg MCHC 33.1 (32-36) g/dl RDW 12.3 (11.5-14.5) % Plt Count 224 (150-375) k/mm3 MPV 9.3 (7.4-10.4) fl Immature Gran % (Auto) 0.4 (0-0.5) % Neut % (Auto) 52.5 (45.5-73.1) % Lymph % (Auto) 33.7 (18.3-44.2) % Rowan % (Auto) 7.9 (2.6-8.5) % Eos % (Auto) 5.3 H (0-4.4) % Baso % (Auto) 0.2 (0.2-1.2) % Lymph # (Auto) 1.84 (0.9-3.2) K/mm3 Rowan # (Auto) 0.4 (0.1-0.6) K/mm3 Eos # (Auto) 0.3 (0-0.3) K/mm3 Baso # (Auto) 0.0 (0.0-0.1) K/mm3 Abs Immat Gran (auto) 0.02 (0.00-0.031) K/mm3 Absolute Neuts (auto) 2.9 (1.3-6.7) K/mm3 Absolute Nucleated RBC 0.000 (0.0-0.012) K/mm3 Nucleated RBC % 0.0 (0.0-0.2) % Sodium 134 L (137-145) mmol/L Potassium 4.2 (3.4-5.0) mmol/L Chloride 101 (98-107) mmol/L Carbon Dioxide 28 (22-30) mmol/L Anion Gap 5 (4-12) mmol/L BUN 16 (9-20) mg/dL Creatinine 1.14 (0.7-1.3) mg/dL Estim Creat Clear Calc 51 ml/min Estimated GFR > 60 (59 - ) Glucose 107 (65-110) mg/dL Calcium 8.9 (8.4-10.2) mg/dL Total Bilirubin 0.6 (0.2-1.3) mg/dL AST 21 (17-59) U/L ALT 6 (6-50) U/L Alkaline Phosphatase 66 (38-126) U/L Total Protein 6.6 (6.3-8.2) g/dL Albumin 3.8 (3.5-5.1) g/dL Lipase 59 (23-300) U/L Imaging Data Radiologist's impression: ITS Impressions Abdomen/Pelvis CT 06/05/25 13:49 IMPRESSION: Findings within the sigmoid colon for which a stricture is suspected. Significant fecal stasis is otherwise demonstrated. Discharge Plan Discharge Clinical Impression: Stricture of sigmoid colon, Constipation Patient Disposition: Home Condition: Stable Instructions: Antibiotic Form, Constipation (ED), Colon Stricture (DC) Patient Language: Latvian Prescriptions: New polyethylene glycol 3350 [Miralax] 17 gram/dose powder 17 g PO .q6 hours Qty: 238 0RF No Action mupirocin 2 % ointment 1 applic topical BID Qty: 15 0RF omega-3 fatty acids-fish oil 360-1,200 mg capsule 2 cap PO DAILY atorvastatin 10 mg tablet 10 mg PO DAILY Qty: 30 0RF lisinopril 5 mg tablet See Rx Instructions .ROUTE .COMPLEX Qty: 90 1RF Dose Instruction: TAKE 1 TABLET DAILY Rx Instructions: TAKE 1 TABLET DAILY multivitamin Tablet 1 tablet PO DAILY polyethylene glycol 3350 [Miralax] 17 gram Powder In Packet 17 g PO QAM Qty: 15 0RF metformin 500 mg tablet 500 mg PO DAILY Qty: 90 0RF tamsulosin 0.4 mg capsule See Rx Instructions .ROUTE .COMPLEX Qty: 90 1RF Dose Instruction: TAKE 1 CAPSULE DAILY Rx Instructions: TAKE 1 CAPSULE DAILY levothyroxine 75 mcg tablet See Rx Instructions .ROUTE .COMPLEX Qty: 90 2RF Dose Instruction: TAKE 1 TABLET DAILY Rx Instructions: TAKE 1 TABLET DAILY carbidopa-levodopa 25-100 mg tablet See Rx Instructions .ROUTE .COMPLEX Qty: 90 1RF Dose Instruction: TAKE 1 TABLET BY MOUTH THREE TIMES DAILY Rx Instructions: TAKE 1 TABLET BY MOUTH THREE TIMES DAILY metformin 500 mg tablet See Rx Instructions .ROUTE .COMPLEX Qty: 30 3RF Dose Instruction: TAKE 1 TABLET DAILY Rx Instructions: TAKE 1 TABLET DAILY Follow-up/Referrals: Raj Stevens MD [Primary Care Provider] - Time of Disposition: 14:59
--- OUTSIDE RECORDS SUMMARY | 2025-06-05 12:27 | XMS_ITS | Continuity of Care Document ---
Author Organization [facility] Address [address] [place] [address] Phone Care Team Providers Care Logging Equipment Mechanic Name Role Phone Nela Gramajo Unavailable Unavailable [...] Diagnoses Date Provider Providers Copied on Encounter [facility], [address] [place] [address] [address], [place], [place], [address], [place] tel:[phone] [facility] No Information 0 Rox Rondon. [address] , [address], [place], [address], [place]. tel:[phone] [facility], [address], [place], [place], [address], [place] tel:[phone] [facility] No Information - 0 Rox Rondon. [address], [place], [place], [facility] [place], [place]. tel:[phone] [facility], [address], [place], [place], [address], [place] tel:[phone] [facility] No Information 2-201 0 Lopez OD Shemar. [address] , [address], [place], [facility] [place], [place]. tel:[phone] [facility], [address], [place], [place], [address], [place] tel:[phone] [facility] No Information - 0 Rox Rondon. [address], [place], [facility] [place], [place]. tel:[phone] [facility], [address], [place], [place], [address], [place] tel:[phone] [facility] No Information 3-201 0 Rox Rondon. [address], [place], [facility] [place], [place]. tel:[phone] Referring Provider: Nela Trinidad, [address], [place], [facility] [place]. tel:[phone] [facility], [address], [place], [place], [address], [place] tel:[phone] [facility] No Information 0 Lopez OD Shemar. [address], [place], [facility] [place], [place]. tel:[phone] [facility], [address], [place], [place], [address], tel:[phone] [facility] No Information May-0 8-201 0 Lopez OD Shemar. [address] [facility] , [address], [place], [facility] [place], . tel:[phone] [facility], [address] [facility] [address], [place], [place], [address], tel:[phone] [facility] No Information May-0 7-201 0 Rox Rondon. [address] [facility] , [address], [place], [facility] [place], . tel:[phone] [facility], [address] [place] [address] [address], [place], [place], [address], tel:[phone] [facility] No Information May-0 7-[address] [facility] , [address], [place], [facility] [place], . tel:[phone] [facility], [address] [facility] [address], [place], [place], [address], tel:[phone] [facility] No Information Apr-2 9-[address] [facility] , [address], [place], [facility] [place], . tel:[phone] Referring Provider: Nela Trinidad, [address] [place], [place] [address], [place], [facility] [place]. tel:[phone] Family History Family Member Type Diagnosis Age [...]
[2025-06-05 12:40] LABS: Hematocrit 37.5 % (42.0-52.0); Hemoglobin 12.4 g/dL (14.0-18.0); Immature Granulocyte Percent A 0.4 % (0-0.5); Lymphocytes Absolute Auto 1.84 K/mm3 (0.9-3.2); Mean Corpuscular HGB Conc 33.1 g/dl (32-36); Mean Corpuscular Hemoglobin 31.9 pg (26-34); Mean Corpuscular Volume 96.4 fl (80-100); Nucleated Red Blood Cells Absolute Auto 0.000 K/mm3 (0.0-0.012); Nucleated Red Blood Cells Perc 0.0 % (0.0-0.2); Platelet Count Result 224 k/mm3 (150-375); Red Blood Count 3.89 M/mm3 (4.6-6.20); White Blood Count 5.5 K/mm3 (4.5-10.0)
[2025-06-05 13:02] LABS: Alanine Aminotransferase 6 U/L (6-50); Albumin Level 3.8 g/dL (3.5-5.1); Alkaline Phosphatase 66 U/L (38-126); Anion Gap 5 mmol/L (4-12); Aspartate Amino Transferase 21 U/L (17-59); Bilirubin,Total 0.6 mg/dL (0.2-1.3); Blood Urea Nitrogen 16 mg/dL (9-20); Calcium 8.9 mg/dL (8.4-10.2); Carbon Dioxide 28 mmol/L (22-30); Chloride 101 mmol/L (98-107); Estimated CRCL calculation 51 ml/min; Estimated Glomerular Filt Rate > 60; Glucose 107 mg/dL (65-110); Lipase 59 U/L (23-300); Potassium 4.2 mmol/L (3.4-5.0); Sodium 134 mmol/L (137-145); Total Protein 6.6 g/dL (6.3-8.2)
[2025-06-05 13:55] VITALS: BP 167/94; PULSE 78; RESP 16; O2SAT 98
[2025-06-05 16:29] VITALS: BP 181/99; PULSE 70; RESP 99; O2SAT 16
[2025-06-05 17:13] VITALS: BP 157/79; PULSE 67; RESP 16; O2SAT 100
== END 2025-06-05 17:16 | disposition home or self-care (01) ==
PROVIDERS: Emergency Provider Emergency Medicine; PCP Internal Medicine
DX: K56.699 Other intestinal obstruction unspecified as to partial versus complete obstruction (principal); I12.9 Hypertensive chronic kidney disease with stage 1 through stage 4 chronic kidney disease, or unspecified chronic kidney disease; N18.9 Chronic kidney disease, unspecified; G20.A1 Parkinson's disease without dyskinesia, without mention of fluctuations; E03.9 Hypothyroidism, unspecified; E55.9 Vitamin D deficiency, unspecified; E78.5 Hyperlipidemia, unspecified; N40.1 Benign prostatic hyperplasia with lower urinary tract symptoms; N13.8 Other obstructive and reflux uropathy; R73.03 Prediabetes; Z86.73 Personal history of transient ischemic attack (TIA), and cerebral infarction without residual deficits; Z85.828 Personal history of other malignant neoplasm of skin; Z86.0100 Personal history of colon polyps, unspecified; Z87.891 Personal history of nicotine dependence
CPT/HCPCS: 36415; 74177; 80053; 83690; 85025; 99284; Q9967

== ENCOUNTER 2025-06-06 20:20 | Inpatient (IN) | payer MEDICARE, OTHER, SELFPAY ==
--- NOTE | ~2025-06-06 | XR_ITS ---
EXAMINATION: XR enema water soluble DATE: 06/09/2025 12:24 INDICATION: Constipation and stricture TECHNIQUE: A ebd special education teacher radiograph was obtained. A catheter was inserted into the patient's rectum. Water- soluble contrast was infused by gravity. Fluoroscopic spot images and conventional radiographs were o btained. Fluoroscopy exposure time was 0.9 minutes. A total of 50 fluoroscopic images and 6 overhead radiographs were obtained. Total DAP was 36.756 mGycm^2 COMPARISON: None. FINDINGS: Large amount of gas scattered throughout nondilated large and small bowel on the initial ebd special education teacher image. Water-soluble contrast extends retrograde through the tortuous colon to the cecum with no evident fi xed stricture, masses or evident mucosal irregularities. There is mild diverticulosis along the sigmo id colon. No extraluminal contrast extravasation. Lung bases are clear. Heart size is normal.. IMPRESSION: 1. Mild diverticulosis along the sigmoid colon. Reviewed, dictated and finalized at location A.
--- NOTE | ~2025-06-06 | CT_ITS ---
CLINICAL INDICATION: Constipation COMPARISON: 06/05/2025. TECHNIQUE: Multiple contiguous axial images of the abdomen and pelvis were performed following the ad ministration of with 100 mL Omnipaque-350 intravenous contrast The dose-length product (DLP) was 448.99 mGy-cm. Automated exposure control and iterative reconstruction technique were employed. FINDINGS/OBSERVATIONS: Visualized lower thorax: Bibasilar pleural thickening and atelectasis. The heart is of normal size, without pericardial effusion. Small hiatal hernia is present. Liver: The liver demonstrates homogeneous enhancement and is not enlarged . Gallbladder and biliary system: The gallbladder is distended, and otherwise unremarkable. Pancreas: The pancreas enhances homogeneously without ductal dilatation. Spleen: The spleen enhances homogeneously and is not enlarged measuring 8 cm in longitudinal dimension. Kidneys: The bilateral kidneys enhance symmetrically without hydronephrosis or renal calculi. Adrenal glands: Unremarkable. Gastrointestinal tract: 11 cm segment of sigmoid colon demonstrates significant caliber narrowing, for which a stricture is s uspected. This finding is unchanged from previous examination dated 06/05/2025. Of note, this is an in terval change from examination dated 08/09/2019. Fecal stasis within the colon. Interval progression of the fecal stasis previously identified within the cecum and ascending colon. The remainder of the colon remains distended with aerated stool. Appendix: The appendix is not definitively visualized. However, no pericecal inflammatory change is identified suggest the presence of acute appendicitis. Vasculature: Unremarkable. Lymph nodes: No pathologically enlarged or morphologically suspicious lymph nodes within the retroperitoneum or at the root of the mesentery. Pelvic structures: The bladder is distended, and otherwise unremarkable. The prostate gland is not enlarged. Body wall and musculoskeletal: Small fat-containing umbilical hernia. Small fat-containing left inguinal hernia. Age-appropriate degenerative disease within the lower thoracic and lumbosacral spines. IMPRESSION: Redemonstration of the stricture within the sigmoid colon, with interval progression of fecal stasis within the proximal colon. These findings are an interval change from the 2019 examination as detailed above. Reviewed, dictated and finalized at location A. IMPRESSION: Redemonstration of the stricture within the sigmoid colon, with interval progre ssion of fecal stasis within the proximal colon. These findings are an interval change from the 2019 examination as detailed abo ve.
[2025-06-06 20:22] VITALS: BP 136/79; PULSE 73; RESP 18; TEMP 36.5; O2SAT 98
--- OUTSIDE RECORDS SUMMARY | 2025-06-06 20:23 | XMS_ITS | Continuity of Care Document ---
Author Organization [facility] Address [address] [place] [address] Phone Care Team Providers Care Putty Mixer Name Role Phone Nela Gramajo Unavailable Unavailable [...] Date Provider Providers Copied on Encounter [facility], [address] [place] [address] [address], [place], [place], [address], [place] tel:[phone] SEC [facility] No Information 0 Rox Rondon. [address], [place], [address], [place]. tel:[phone] [facility], [address], [place], [place], [address], [place] tel:[phone] [facility] No Information - 0 Rox Rondon. [address], [place], [facility], [place]. tel:[phone] [facility], [address], [place], [place], [address], [place] tel:[phone] [facility] No Information 2-201 0 Lopez OD Shemar. [address], [place], [facility], [place]. tel:[phone] [facility], [address], [place], [place], [address], [place] tel:[phone] [facility] No Information - 0 Rox Rondon. [address], [place], [facility], [place]. tel:[phone] [facility], [address], [place], [place], [address], [place] tel:[phone] [facility] No Information 3-201 0 Rox Rondon. [address], [place], [facility], [place]. tel:[phone] Referring Provider: Nela Trinidad, [address], [place], [facility]. tel:[phone] [facility], [address], [place], [place], [address], [place] tel:[phone] [facility] No Information 0 Lopez OD Shemar. [address] , [address], [place], [facility], [place]. tel:[phone] [facility], [address], [place], [place], [address], tel:[phone] [facility] No Information May-0 8-201 0 Lopez OD Shemar. [address] [facility] , [address], [place], [facility], . tel:[phone] [facility], [address] [facility] [address], [place], [place], [address], tel:[phone] [facility] No Information May-0 7-201 0 Rox Rondon. [address] [facility] , [address], [place], [facility], . tel:[phone] [facility], [address] [place] [address] [address], [place], [place], [address], tel:[phone] [facility] No Information May-0 7-201 0 Rox Rondon. [facility] , [address], [place], [facility], . tel:[phone] [facility], [address] [facility] [address], [place], [place], [address], tel:[phone] [facility] No Information Apr-2 9-201 0 Rox Rondon. [facility] , [address], [place], [facility], . tel:[phone] Referring Provider: Nela Trinidad, [address] [place], [place] [address], [place], [facility]. tel:[phone] Family History Family Member Type Diagnosis Age At Onset No Information Payers Payer name Insurance type Covered constitution party ID Authoriza tion(s) No Information Social [...]
[2025-06-07] VITALS (47 sets, daily range): BP systolic 106–172; BP diastolic 74–101; PULSE 60–91; RESP 9–18; TEMP 35.8–36.6; O2SAT 95–100; BMI 23.2
[2025-06-07 01:16] LABS: Hematocrit 36.4 % (42.0-52.0); Hemoglobin 12.0 g/dL (14.0-18.0); Immature Granulocyte Percent A 0.4 % (0-0.5); Lymphocytes Absolute Auto 1.69 K/mm3 (0.9-3.2); Mean Corpuscular HGB Conc 33.0 g/dl (32-36); Mean Corpuscular Hemoglobin 32.2 pg (26-34); Mean Corpuscular Volume 97.6 fl (80-100); Nucleated Red Blood Cells Absolute Auto 0.000 K/mm3 (0.0-0.012); Nucleated Red Blood Cells Perc 0.0 % (0.0-0.2); Platelet Count Result 230 k/mm3 (150-375); Red Blood Count 3.73 M/mm3 (4.6-6.20); White Blood Count 5.2 K/mm3 (4.5-10.0)
--- OUTSIDE RECORDS SUMMARY | 2025-06-07 01:26 | XMS_ITS | Continuity of Care Document ---
Author Organization [facility] Address [address] [place] [address] Phone Care Team Providers Care Orthodontic Band Maker Name Role Phone Nela Gramajo Unavailable Unavailable [...] Diagnoses Date Provider Providers Copied on Encounter [facility], [address] [place] [address] [address], [place], [place], [address], [place] tel:[phone] [facility] No Information 0 Rox Rondon. [address], [place], [address], [place]. tel:[phone] [facility], [address], [place], [place], [address], [place] tel:[phone] [facility] No Information - 0 Rox Rondon. [address], [place], [facility], [place]. tel:[phone] [facility], [address], [place], [place], [address], [place] tel:[phone] [facility] No Information 2-201 0 Lopez OD Shemar. [address] , [address], [place], [facility], [place]. tel:[phone] [facility], [address], [place], [place], [address], [place] tel:[phone] [facility] No Information - 0 Rox Rondon. [address], [place], [facility], [place]. tel:[phone] [facility], [address], [place], [place], [address], [place] tel:[phone] [facility] No Information 3-201 0 Rox Rondon. [address], [place], [facility], [place]. tel:[phone] Referring Provider: Nela Trinidad, [address], [place], [facility]. tel:[phone] [facility], [address], [place], [place], [address], [place] tel:[phone] [facility] No Information 0 Lopez OD Shemar. [address], [place], [facility], [place]. tel:[phone] [facility], [address], [place], [place], [address], tel:[phone] [facility] No Information May-0 8-201 0 Lopez OD Shemar. [address] [facility] , [address], [place], [facility], . tel:[phone] [facility], [address] [facility] [address], [place], [place], [address], tel:[phone] [facility] No Information May-0 7-201 0 Rox Rondon. [address] [address] [facility] , [address], [place], [facility], . tel:[phone] [facility], [address] [place] [address] [address], [place], [place], [address], tel:[phone] [facility] No Information May-0 7-201 0 Rox Rondon. [facility] , [address], [place], [facility], . tel:[phone] [facility], [address] [facility] [address], [place], [place], [address], tel:[phone] [facility] No Information Apr-2 9-201 0 Rox Rondon. [facility] , [address], [place], [facility], . tel:[phone] Referring Provider: Nela Trinidad, [address] [place], [place] [address], [place], [facility]. tel:[phone] Family History Family Member Type Diagnosis Age [...]
[2025-06-07 01:32] LABS: Alanine Aminotransferase 12 U/L (6-50); Albumin Level 3.6 g/dL (3.5-5.1); Alkaline Phosphatase 63 U/L (38-126); Anion Gap 5 mmol/L (4-12); Aspartate Amino Transferase 19 U/L (17-59); Bilirubin,Total 0.4 mg/dL (0.2-1.3); Blood Urea Nitrogen 14 mg/dL (9-20); Calcium 8.8 mg/dL (8.4-10.2); Carbon Dioxide 30 mmol/L (22-30); Chloride 101 mmol/L (98-107); Estimated CRCL calculation 51 ml/min; Estimated Glomerular Filt Rate > 60; Glucose 130 mg/dL (65-110); Lipase 52 U/L (23-300); Potassium 3.9 mmol/L (3.4-5.0); Sodium 136 mmol/L (137-145); Total Protein 6.3 g/dL (6.3-8.2)
[2025-06-07 01:41] LABS: NT Pro B Type Natriuretic Pept 232 pg/mL (19.9-100)
--- NOTE | 2025-06-07 01:42 | ED.ABDPAIN ---
HPI - Abdominal Pain General Chief Complaint: Abdominal Pain Stated Complaint: constipation Time Seen by Provider: 06/07/25 01:11 Source: patient, family and RN notes reviewed Mode of arrival: EMS Limitations: no limitations History of Present Illness HPI narrative: Patient presents with report of constipation. It has been 8 days since his last bowel movement. He denies any abdominal pain. He did recently fall and had rib fracture but denies being on opiate therapy for this or other. Decreased flatus. Not on anticoagulation. Last oral intake was dinner at 5:30 p.m. has a primary care physician. Denies any change in urine output. Denies any nausea or vomiting. Patient was here on 06/05 for the same and at that time had a CT performed in diagnosed with sigmoid stricture. Dr. Marah LAMBERT had been consulted and recommended soapsuds enema and taking MiraLax Q 4 and follow up outpatient for colonoscopy. A soapsuds enema was performed while patient was in the emergency department though family and patient states that there was no output. He has been taking MiraLax Q 4 but still has not produced a bowel movement. Denies any fever but has been feeling chilled. His last colonoscopy was approximately 1.5 years ago and reportedly normal although he states he might of had a polyp. Is also reported that patient was complaining of his shirt being wet and therefore concern for a weeping wound on his chest. Related Data Home Medications ?Medication ?Instructions ?Recorded ?Confirmed ?Last Taken ?Type multivitamin 1 tablet PO DAILY 09/29/20 06/03/25 12/06/24 09:00 History omega-3 fatty acids-fish oil 360 2 cap PO DAILY 02/20/24 06/03/25 12/06/24 09:00 History mg-1,200 mg capsule Allergies Allergy/AdvReac Type Severity Reaction Status Date / Time No Known Allergies Allergy Unknown Verified 06/06/25 20:30 [facility] Past Medical History Medical History Rib fractures Fecal incontinence Weakness BPH loc w urin obs/LUTS Chronic kidney disease History of skin cancer Parkinsonism Hypothyroidism (acquired) History of CVA in adulthood Vitamin D deficiency 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 Code status: Full code. Smoking packs per day: 0.5 Smoking cigarettes per day: 10.0 Years smoked: 10 Smoking pack-years: 5.00 Smoking status: Former smoker Tobacco type: cigarettes Smoking end date: 11/13/72 Alcohol intake: never Drinks per week: 2 Alcohol use details: social alcohol use in moderation Substance use: never Substance use type: does not use Do You Feel Safe in your Home?: Yes Lack of Transportation: No Lack of Food: Never True Current Housing: I Have Housing Concerned About Future Housing: No Difficulty Paying Gas/Electric Bills: No Difficulty Paying for Meds: No Currently Unemployed: No Education: High School Diploma/GED Difficulty w/ Childcare or Family Care: No Living arrangements: [facility] Additional living arrangements comments: Lives alone in independent living at [facility]. Occupation/Education: retired Additional occupation/education comments: Retired [employer]. Spiritual care concerns: No Exam Narrative: GENERAL: Well-appearing, well-nourished, and in no acute distress. HEAD: Normocephalic, atraumatic. EYES: Non injected, non icteric ENT: Nares clear, no rhinorrhea or epistaxis. Gross auditory acuity intact. NECK: Supple. No meningismus. CHEST: Speaking in full sentences. No respiratory distress. No rash/lesions/wound is appreciable on entire anterior chest. HEART: Regular rate and rhythm. . ABDOMEN: Distended but Soft. No rigidity or guarding. Not peritoneal SKIN: Warm, dry, no rash. NEURO: No focal deficits. Alert and oriented. Answering questions. Following commands. PSYCH: congruent mood and affect. Course Vital Signs Vital signs: Vital Signs Temperature 97.7 F 06/06/25 20:22 Pulse Rate 73 06/06/25 20:22 Respiratory Rate 18 06/06/25 20:22 Blood Pressure 136/79 06/06/25 20:22 Pulse Oximetry 98 06/06/25 20:22 Oxygen Delivery Room Air 06/06/25 20:22 Temperature 97.7 F 06/06/25 20:22 Pulse Rate 79 06/07/25 07:17 Respiratory Rate 16 06/07/25 07:17 Blood Pressure 160/101 H 06/07/25 07:17 Pulse Oximetry 99 06/07/25 07:01 Oxygen Delivery Room Air 06/06/25 20:22 MDM - Abdominal Pain MDM Narrative Medical decision making narrative: Patient presents with constipation. He has not had a bowel movement in 8 days. Seen for the same on 06/05/2025 and diagnosed with concern for sigmoid stricture. Underwent soapsuds enema with minimal output. Recommendation had been for MiraLax Q 4 and follow-up outpatient with colonoscopy. In the emergency department they are afebrile with vital signs within normal limits. BNP mildly elevated but not to a degree to suggest acute heart failure especially given the reference range of the assay for patient's age. Anemia chronic/stable. CT as below redemonstrates concern for stricture. There is concern for fecal stasis. Discussed with keg header Dr Peterson who recommends gastrograffin enema and having patient take 17gm Miralax 2 or 3 times a day and be on a clear liquid diet. Discussed with on-call hospitalist Dr Alonzo who accepts admission. Differential Diagnosis Differential diagnosis: Likely constipation (Due to stricture, delayed transit, physiologic, considered opiate therapy) Medical Records Attestation: I reviewed the patient's medical records. Medical records narrative: Reviewed CT images and note from 06/05/2025 Lab Data Attestation: I reviewed the patient's lab results. 06/07/25 01:06 06/07/25 01:06 Labs: Lab Results 06/07/25 06/07/25 06/07/25 Range/Units 01:06 01:06 01:47 WBC 5.2 (4.5-10.0) K/mm3 RBC 3.73 L (4.6-6.20) M/mm3 Hgb 12.0 L (14.0-18.0) g/dL Hct 36.4 L (42.0-52.0) % MCV 97.6 (80-100) fl MCH 32.2 (26-34) pg MCHC 33.0 (32-36) g/dl RDW 12.2 (11.5-14.5) % Plt Count 230 (150-375) k/mm3 MPV 9.2 (7.4-10.4) fl Immature Gran % (Auto) 0.4 (0-0.5) % Neut % (Auto) 49.9 (45.5-73.1) % Lymph % (Auto) 32.8 (18.3-44.2) % [place] % (Auto) 8.5 (2.6-8.5) % Eos % (Auto) 8.2 H (0-4.4) % Baso % (Auto) 0.2 (0.2-1.2) % Lymph # (Auto) 1.69 (0.9-3.2) K/mm3 [place] # (Auto) 0.4 (0.1-0.6) K/mm3 Eos # (Auto) 0.4 H (0-0.3) K/mm3 Baso # (Auto) 0.0 (0.0-0.1) K/mm3 Abs Immat Gran (auto) 0.02 (0.00-0.031) K/mm3 Absolute Neuts (auto) 2.6 (1.3-6.7) K/mm3 Absolute Nucleated RBC 0.000 (0.0-0.012) K/mm3 Nucleated RBC % 0.0 (0.0-0.2) % Sodium 136 L (137-145) mmol/L Potassium 3.9 (3.4-5.0) mmol/L Chloride 101 (98-107) mmol/L Carbon Dioxide 30 (22-30) mmol/L Anion Gap 5 (4-12) mmol/L BUN 14 (9-20) mg/dL Creatinine 1.13 (0.7-1.3) mg/dL Estim Creat Clear Calc 51 ml/min Estimated GFR > 60 (59 - ) Glucose 130 H (65-110) mg/dL Calcium 8.8 (8.4-10.2) mg/dL Total Bilirubin 0.4 (0.2-1.3) mg/dL AST 19 (17-59) U/L ALT 12 (6-50) U/L Alkaline Phosphatase 63 (38-126) U/L NT-Pro-B Natriuret Pep 232 H Cancelled (19.9-100) pg/mL Total Protein 6.3 (6.3-8.2) g/dL Albumin 3.6 (3.5-5.1) g/dL Lipase 52 (23-300) U/L Urine Color Yellow (Yellow) Urine Appearance Clear (Clear) Urine pH 5.5 (5.0-9.0) Ur Specific [place] 1.021 (1.001-1.035) Urine Protein Negative (Negative) mg/dL Urine Glucose (UA) Negative (Negative) mg/dL Urine Ketones Trace H (Negative) mg/dL Ur Blood (Man) Negative (Negative) Urine Nitrate Negative (Negative) Urine Bilirubin Negative (Negative) Urine Urobilinogen 2.0 H (<2.0) mg/dL Leukocyte Esterase Rfl Negative (Negative) CARMEN/UL Imaging Data Radiologist's impression: ITS Impressions Abdomen/Pelvis CT 06/07/25 07:20 IMPRESSION: Redemonstration of the stricture within the sigmoid colon, with interval progression of fecal stasis within the proximal colon. These findings are an interval change from the 2019 examination as detailed above[address] Abd Pelvis w/ contrast Stat Rad: Discoid atelectasis seen in the lung bases. Moderate prostatomegaly. Generous amount of air and semi-solid fecal matter seen in the colonic lumen. This could be from ileus. 3 mm nonobstructing right nephrolithaisis. No bowel obstruction. Discharge Plan Discharge Clinical Impression: Enlarged prostate, Colon stricture, Constipation Patient Disposition: Still a Patient Condition: Stable Instructions: Antibiotic Form Patient Language: Bulgarian Prescriptions: No Action mupirocin 2 % ointment 1 applic topical BID Qty: 15 0RF omega-3 fatty acids-fish oil 360-1,200 mg capsule 2 cap PO DAILY atorvastatin 10 mg tablet 10 mg PO DAILY Qty: 30 0RF lisinopril 5 mg tablet See Rx Instructions .ROUTE .COMPLEX Qty: 90 1RF Dose Instruction: TAKE 1 TABLET DAILY Rx Instructions: TAKE 1 TABLET DAILY multivitamin Tablet 1 tablet PO DAILY polyethylene glycol 3350 [Miralax] 17 gram Powder In Packet 17 g PO QAM Qty: 15 0RF polyethylene glycol 3350 [Miralax] 17 gram/dose powder 17 g PO .q6 hours Qty: 238 0RF metformin 500 mg tablet 500 mg PO DAILY Qty: 90 0RF tamsulosin 0.4 mg capsule See Rx Instructions .ROUTE .COMPLEX Qty: 90 1RF Dose Instruction: TAKE 1 CAPSULE DAILY Rx Instructions: TAKE 1 CAPSULE DAILY levothyroxine 75 mcg tablet See Rx Instructions .ROUTE .COMPLEX Qty: 90 2RF Dose Instruction: TAKE 1 TABLET DAILY Rx Instructions: TAKE 1 TABLET DAILY carbidopa-levodopa 25-100 mg tablet See Rx Instructions .ROUTE .COMPLEX Qty: 90 1RF Dose Instruction: TAKE 1 TABLET BY MOUTH THREE TIMES DAILY Rx Instructions: TAKE 1 TABLET BY MOUTH THREE TIMES DAILY metformin 500 mg tablet See Rx Instructions .ROUTE .COMPLEX Qty: 30 3RF Dose Instruction: TAKE 1 TABLET DAILY Rx Instructions: TAKE 1 TABLET DAILY Follow-up/Referrals: Raj Stevens MD [Primary Care Provider] -
[2025-06-07 03:06] LABS: Add Urine Microscopic? YES; Appearance Urine Clear (Clear); Glucose Urine UA Negative (Negative); Leukocyte Esterase Ur Negative LEU/UL (Negative); Nitrate Urine Negative (Negative); Specific Grav Ur 1.021 (1.001-1.035)
--- NOTE | 2025-06-07 08:50 | PC.NURSE ---
spoke with radiology about concerns for barium enema imaging- they are unsure if the patient will need a cleanse prep prior to the imaging- will talk with radiologist and will contact with any further questions or concerns.
--- NOTE | 2025-06-07 09:29 | PC.NURSE ---
spoke with radiology and they have a remote radiologist and won't have a radiology in house until Monday
--- OUTSIDE RECORDS SUMMARY | 2025-06-07 10:23 | XMS_ITS | Continuity of Care Document ---
Author Organization [facility] Address [address] [place] [address] Phone Care Team Providers Care Bi Manager Name Role Phone Nela Gramajo Unavailable Unavailable [...] Diagnoses Date Provider Providers Copied on Encounter [facility], [address] [place] [address] [address], [place], [place], [id number], [place] tel:[phone] [facility] No Information 0 Rox Rondon. [address] , [address], [place], [address], [place]. tel:[phone] [facility], [address], [place], [place], [id number], [place] tel:[phone] [facility] No Information - 0 Rox Rondon. [address] , [address], [place], [place], [facility], [place]. tel:[phone] [facility], [address], [place], [place], [id number], [place] tel:[phone] [facility] No Information 2-201 0 Lopez OD Shemar. [address] , [address], [place], [place], [facility], [place]. tel:[phone] [facility], [address], [place], [place], [id number], [place] tel:[phone] [facility] No Information - 0 Rox Rondon. [address] , [address], [place], [place], [facility], [place]. tel:[phone] [facility], [address], [place], [place], [id number], [place] tel:[phone] [facility] No Information 3-201 0 Rox Rondon. [address] , [address], [place], [place], [facility], [place]. tel:[phone] Referring Provider: Nela Trinidad, [address], [place], [place], [facility]. tel:[phone] [facility], [address], [place], [place], [id number], [place] tel:[phone] [facility] No Information 0 Lopez OD Shemar. [address] , [address], [place], [place], [facility], [place]. tel:[phone] [facility], [address], [place], [place], [id number], tel:[phone] [facility] No Information May-0 8-201 0 Lopez OD Shemar. [address] [facility] , [address], [place], [place], [facility], . tel:[phone] [facility], [address], [place], [place], [id number], tel:[phone] [facility] No Information May-0 7-201 0 Rox Rondon. [address] [facility] , [address], [place], [place], [facility], . tel:[phone] [facility], [address] [place] [address] [address], [place], [place], [id number], tel:[phone] [facility] No Information May-0 7-201 0 Rox Rondon. Count includes the [facility] , [address], [place], [place], [facility], . tel:[phone] [facility], [address], [place], [place], [id number], tel:[phone] [facility] No Information Apr-2 9-201 0 Rox Rondon. Count includes the [facility] , [address], [place], [place], [facility], . tel:[phone] Referring Provider: Nela Trinidad, [address] [place], [place] [address], [place], [place], [facility]. tel:[phone] Family History Family Member Type Diagnosis Age [...]
--- NOTE | 2025-06-07 12:26 | P.HP_ITS ---
H&P: HPI History of Present Illness Date/Time: 06/07/25 12:26 Chief Complaint: constipation Narrative: Patient presents with report of constipation. It has been 8 days since his last bowel movement. He denies any abdominal pain. He also recently had a fall about a week ago and had some rib fractures but denies being on opiate therapy for this or other. Decreased flatus. Not on anticoagulation. Last oral intake was dinner at 5:30 p.m. Denies any change in urine output. Denies any nausea or vomiting. he was recently here for the same. ct performed showed sigmoid stricture Patient was here on 06/05 for the same and at that time had a CT performed which showed significant fecal stasisa nd findings suggestive fo stricture. he was send home after enema and on stool softner, to have an outpatient colonscopy. he still continued to have issue post discahrge and hence presents back to the ED. In the ED vitals are stable. labs with wbc 5.2, hb 12, platelet 230. na 136, k 3.9, Cl 101, HCO3 30, BN 14, Cr 1.13, Glu 130. lFT normal. lipiase noraml at 52. ua negative for infection. CT abomen and pelvis with redemonstration fo stricture within the sigmoid colon, with interval progression of fecal stasis within the proximal colon. moderate prostatomegaly. no bowel obstruction. GI consulted. he is admitted for further evaluation and management. Review of Systems Review of Systems: - CONSTITUTIONAL: Denies weight loss, fe randi and chills. - HEENT: Denies changes in vision and he aring - RESPIRATORY: Denies SOB and cough. - CV: Denies palpitations and CP. - GI: denies abdominal pain, denies lew sea, vomiting and diarrhea. reports constipation - : Denies dysuria and urinary frequen cy. - MSK: Denies myalgia and joint pain. - SKIN: Denies rash and pruritus. - NEUROLOGICAL: Denies headache and sync ope. - PSYCHIATRIC: Denies recent changes in mood. Denies anxiety and depression. 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 Code status: Full code. Smoking packs per day: 0.5 Smoking cigarettes per day: 10.0 Years smoked: 10 Smoking pack-years: 5.00 Smoking status: Former smoker Tobacco type: cigarettes Smoking end date: 11/13/72 Alcohol intake: current Drinks per week: 1 Alcohol use details: social alcohol use in moderation Substance use: never Substance use type: does not use Do You Feel Safe in your Home?: Yes Lack of Transportation: No Lack of Food: Never True Current Housing: I Have Housing Concerned About Future Housing: No Difficulty Paying Gas/Electric Bills: No Difficulty Paying for Meds: No Currently Unemployed: No Education: Master's Degree or Higher Difficulty w/ Childcare or Family Care: No Living arrangements: [facility] Additional living arrangements comments: Lives alone in independent living at [facility]. Occupation/Education: retired Additional occupation/education comments: Retired [employer]. Spiritual care concerns: No Meds Home Medications and Allergies Home Medications ?Medication ?Instructions ?Recorded ?Confirmed ?Type multivitamin 1 tablet PO DAILY 09/29/20 06/07/25 History omega-3 fatty acids-fish oil 360 2 cap PO DAILY 02/20/24 06/07/25 History mg-1,200 mg capsule metformin 500 mg tablet See Rx Instructions .Route 12/13/24 06/07/25 Rx .COMPLEX #30 tabs lisinopril 5 mg tablet See Rx Instructions .Route 12/17/24 06/07/25 Rx .COMPLEX #90 tabs mupirocin 2 % topical ointment 1 applic topical BID #15 grams 12/18/24 06/07/25 Rx metformin 500 mg tablet 500 mg PO DAILY #90 tabs 03/17/25 06/07/25 Rx atorvastatin 10 mg tablet 10 mg PO DAILY #30 tabs 04/03/25 06/07/25 Rx tamsulosin 0.4 mg capsule See Rx Instructions .Route 04/08/25 06/07/25 Rx .COMPLEX #90 caps levothyroxine 75 mcg tablet See Rx Instructions .Route 05/20/25 06/07/25 Rx .COMPLEX #90 tabs carbidopa 25 mg-levodopa 100 mg See Rx Instructions .Route 05/26/25 06/07/25 Rx tablet .COMPLEX #90 tabs polyethylene glycol 3350 17 gram 17 g PO QAM PRN constipation 06/07/25 06/07/25 History oral powder packet (Miralax) polyethylene glycol 3350 17 17 g PO .q6 hours PRN constipation 06/07/25 06/07/25 History gram/dose oral powder (Miralax) Allergies Allergy/AdvReac Type Severity Reaction Status Date / Time No Known Allergies Allergy Unknown Verified 06/07/25 11:13 Vital Signs Vital Signs - 24 hr 06/06/25 20:22 06/07/25 00:16 06/07/25 00:31 Temperature 97.7 F Pulse Rate 73 71 71 Respiratory Rate 18 14 14 Blood Pressure 136/79 133/83 143/89 H Pulse Oximetry 98 99 99 Oxygen Delivery Room Air 06/07/25 00:46 06/07/25 01:17 06/07/25 01:31 Temperature Pulse Rate 66 83 Respiratory Rate 13 13 Blood Pressure 139/79 106/80 142/88 H Pulse Oximetry 100 97 Oxygen Delivery 06/07/25 02:16 06/07/25 03:30 06/07/25 03:31 Temperature Pulse Rate Respiratory Rate Blood Pressure 146/81 H 149/81 H Pulse Oximetry 95 96 Oxygen Delivery 06/07/25 03:46 06/07/25 04:31 06/07/25 04:46 Temperature Pulse Rate Respiratory Rate Blood Pressure 135/86 129/75 129/74 Pulse Oximetry 99 98 Oxygen Delivery 06/07/25 05:16 06/07/25 05:31 06/07/25 06:32 Temperature Pulse Rate 63 68 Respiratory Rate 11 L 10 L Blood Pressure 143/83 H 152/85 H Pulse Oximetry 100 99 98 Oxygen Delivery 06/07/25 06:45 06/07/25 06:46 06/07/25 07:00 Temperature Pulse Rate 64 61 69 Respiratory Rate 13 13 9 L Blood Pressure 144/81 H Pulse Oximetry 100 99 99 Oxygen Delivery 06/07/25 07:01 06/07/25 07:15 06/07/25 07:17 Temperature Pulse Rate 72 83 79 Respiratory Rate 9 L 17 16 Blood Pressure 171/92 H 160/101 H Pulse Oximetry 99 Oxygen Delivery 06/07/25 07:18 06/07/25 07:30 06/07/25 07:31 Temperature Pulse Rate 73 68 73 Respiratory Rate 16 11 L 13 Blood Pressure 160/87 H Pulse Oximetry 98 98 Oxygen Delivery 06/07/25 07:45 06/07/25 07:46 06/07/25 08:00 Temperature Pulse Rate 61 64 70 Respiratory Rate 10 L 11 L 14 Blood Pressure 150/78 H Pulse Oximetry 98 98 99 Oxygen Delivery 06/07/25 08:01 06/07/25 08:15 06/07/25 08:16 Temperature Pulse Rate 70 67 64 Respiratory Rate 12 12 12 Blood Pressure 170/88 H 163/82 H Pulse Oximetry 99 Oxygen Delivery 06/07/25 08:30 06/07/25 08:31 06/07/25 08:45 Temperature Pulse Rate 71 72 69 Respiratory Rate 12 14 11 L Blood Pressure 170/88 H Pulse Oximetry Oxygen Delivery 06/07/25 08:46 06/07/25 09:00 06/07/25 09:01 Temperature Pulse Rate 70 70 68 Respiratory Rate 12 13 13 Blood Pressure 169/82 H 170/96 H Pulse Oximetry Oxygen Delivery 06/07/25 09:15 06/07/25 09:16 06/07/25 09:30 Temperature Pulse Rate 71 71 76 Respiratory Rate 14 13 17 Blood Pressure 148/85 H Pulse Oximetry Oxygen Delivery 06/07/25 09:31 06/07/25 09:45 06/07/25 09:46 Temperature Pulse Rate 73 63 65 Respiratory Rate 14 12 12 Blood Pressure 167/100 H 172/82 H Pulse Oximetry Oxygen Delivery 06/07/25 10:00 06/07/25 10:01 06/07/25 11:13 Temperature 96.4 F L Pulse Rate 61 60 66 Respiratory Rate 10 L 11 L 16 Blood Pressure 170/80 H 166/87 H Pulse Oximetry 98 97 98 Oxygen Delivery Exam Narrative: GENERAL: Well-appearing, well-nourished, and in no acute distress. HEAD: Normocephalic, atraumatic. EYES: Non injected, non icteric ENT: Nares clear, no rhinorrhea or epistaxis. Gross auditory acuity intact. NECK: Supple. No meningismus. CHEST: Speaking in full sentences. No respiratory distress. No rash/lesions/wound is appreciable on entire anterior chest. HEART: Regular rate and rhythm. . ABDOMEN: Distended but Soft. No rigidity or guarding. Not peritoneal SKIN: Warm, dry, no rash. NEURO: No focal deficits. Alert and oriented. Answering questions. Following commands. PSYCH: congruent mood and affect. H&P: Results Labs Labs: Short CBC 06/07/25 Range/Units 01:06 WBC 5.2 (4.5-10.0) K/mm3 Hgb 12.0 L (14.0-18.0) g/dL Hct 36.4 L (42.0-52.0) % Plt Count 230 (150-375) k/mm3 BMP 06/07/25 01:06 Sodium 136 L Potassium 3.9 Chloride 101 Carbon Dioxide 30 BUN 14 Creatinine 1.13 Glucose 130 H Calcium 8.8 Liver Function 06/07/25 Range/Units 01:06 Total Bilirubin 0.4 (0.2-1.3) mg/dL AST 19 (17-59) U/L ALT 12 (6-50) U/L Alkaline Phosphatase 63 (38-126) U/L Albumin 3.6 (3.5-5.1) g/dL Urine 06/07/25 Range/Units 01:47 Urine Color Yellow (Yellow) Urine Appearance Clear (Clear) Urine pH 5.5 (5.0-9.0) Ur Specific [place] 1.021 (1.001-1.035) Urine Protein Negative (Negative) mg/dL Urine Glucose (UA) Negative (Negative) mg/dL Assessment and Plan Assessment and plan (1) Benign essential hypertension: Code(s): I10 - Essential (primary) hypertension Status: Chronic (2) Hyperlipidemia: Qualifiers: Hyperlipidemia type: mixed hyperlipidemia Qualified Code(s): E78.2 - Mixed hyperlipidemia Code(s): E78.5 - Hyperlipidemia, unspecified Status: Chronic (3) Pre-diabetes: Code(s): R73.03 - Prediabetes Status: Chronic (4) Hypothyroidism (acquired): Code(s): E03.9 - Hypothyroidism, unspecified Status: Acute (5) Testicular hypofunction: Code(s): E29.1 - Testicular hypofunction Status: Acute (6) Constipation: Qualifiers: Constipation type: unspecified constipation type Qualified Code(s): K59.00 - Constipation, unspecified Code(s): K59.00 - Constipation, unspecified Status: Acute (7) Colon stricture: Code(s): K56.699 - Other intestinal obstruction unspecified as to partial versus complete obstruction Status: Acute (8) Benign prostatic hyperplasia: Code(s): N40.0 - Benign prostatic hyperplasia without lower urinary tract symptoms Status: Acute (9) Parkinsonism: Qualifiers: Parkinsonism type: unspecified Qualified Code(s): G20 - Parkinson's disease Code(s): G20 - Parkinson's disease Status: Acute (10) Rib fractures: Qualifiers: Encounter type: subsequent encounter Fracture healing: with routine healing Fracture type: closed Laterality: left Qualified Code(s): S22.42XD - Multiple fractures of ribs, left side, subsequent encounter for fracture with routine healing Code(s): S22.49XA - Multiple fractures of ribs, unspecified side, initial encounter for closed fracture Status: Acute Plan Patient presents with report of constipation. It has been 8 days since his last bowel movement. He denies any abdominal pain. He also recently had a fall about a week ago and had some rib fractures but denies being on opiate therapy for this or other. Decreased flatus. Not on anticoagulation. Last oral intake was dinner at 5:30 p.m. Denies any change in urine output. Denies any nausea or vomiting. he was recently here for the same. ct performed showed sigmoid stricture Patient was here on 06/05 for the same and at that time had a CT performed which showed significant fecal stasisa nd findings suggestive fo stricture. he was send home after enema and on stool softner, to have an outpatient colonscopy. he still continued to have issue post discahrge and hence presents back to the ED. In the ED vitals are stable. labs with wbc 5.2, hb 12, platelet 230. na 136, k 3.9, Cl 101, HCO3 30, BN 14, Cr 1.13, Glu 130. lFT normal. lipiase noraml at 52. ua negative for infection. CT abomen and pelvis with redemonstration fo stricture within the sigmoid colon, with interval progression of fecal stasis within the proximal colon. moderate prostatomegaly. no bowel obstruction. GI consulted. He is getting Gastrografin enema. Continue on stool softener he is admitted for further evaluation and management. Constipation on miralax. add dulcolax. enema prn. planned gastrograffin enema to evaluate for sigmoid stricture. Sigmoid stricture Recent fall Three fractures BPH Parkinsonism Hypothyroidism Testicular hypofunction Hypertension Hyperlipidemia Prediabetes History of skin cancer DVT prophylaxis Lovenox Code status full code Hospitalist [facility] Advance Care Plan I have confirmed that the patient's Advanced Care Plan is present, code status is documented, or surrogate decision maker is listed in patient medical record.: Yes Medication Reconciliation I have utilized all available resources to obtain, update and review the patients current medications (includes all prescriptions, OTC, herbals, cannabis, and nutritional supplements).: Yes
[2025-06-07] MEDS: CARBIDOPA/LEVODOPA 25/100 MG TABLET 1 TABLET BY MOUTH ×2 (13:24→17:10)
[2025-06-07] MEDS: LEVOTHYROXINE SODIUM 75 MCG TABLET BY MOUTH (13:24)
[2025-06-07] MEDS: BISACODYL 5 MG TABLET EC PO (13:24)
[2025-06-07] MEDS: TAMSULOSIN HCL 0.4 MG CAPSULE BY MOUTH (13:24)
[2025-06-07] MEDS: BISACODYL 10 MG SUPPOSITORY RECTAL (13:25)
--- NOTE | 2025-06-07 15:00 | P.CONGI_ITS ---
Assessment and Plan Assessment and plan (1) Constipation: Code(s): K59.00 - Constipation, unspecified Status: Acute (2) Colon stricture: Code(s): K56.699 - Other intestinal obstruction unspecified as to partial versus complete obstruction Status: Acute Plan Overall patient is stable stable at this point had a large bowel movement after the suppositories. Different possibilities including sigmoid stricture secondary to diverticular versus sigmoid spasm versus colon malignancy has been discussed with the patient. At this point I will continue with the MiraLax p.o. twice a day Will keep the patient on full liquid diet Will proceed with a Gastrografin enema for better evaluation of the sigmoid I have also advised patient to consider even outpatient colonoscopy depending upon the Gastrografin enema for evaluation. Also consult surgery team for evaluation clinically patient does not appear to be obstructed Thanks for the consult GI Consult Note Consult date/time: 06/07/25 15:00 Reason for consult: CT scan abnormal Possible sigmoid stricture Constipation Change in bowel habits HPI: Issa Chatman is a 85 year old male patient seen 1st time coming for the regular GI team. Patient has his that for almost 7 to 8 days he did not have any bowel movement and that brought him to the hospital recently also had a fall and had a rib fracture but according to be was not taking any pain medications. Denies any weight loss denies any nausea vomiting denies any abdominal pain denies any blood in the stool. Patient did have a colonoscopy done in March 2023 that showed hemorrhoids and polyp according to him he did have problems with constipation but not as bad as it was. In the hospital patient was given suppository and he had large big bowel movement and feels better. I did review patient's lab workup was ordered as discussed with them about the abnormal CT scan Review of Systems 2 Constitutional: Constitutional: Denies chills, Denies fatigue, Denies fever(s), Denies headache(s), Denies malaise, Denies weight gain and Denies weight loss Eyes: Eyes: Denies change in vision ENT: Denies dizziness, Denies headache(s) and Reports other (No change in hearing) Cardiovascular: Cardiovascular: Denies chest pain, Denies dyspnea and Reports other (denies palpitations, denies orthopnea) Respiratory: Respiratory: Denies cough, Denies dyspnea and Reports other (denies sputum production, denies hemoptysis) Gastrointestinal: Gastrointestinal: Reports as per HPI Genitourinary: Genitourinary: Denies hematuria, Denies dysuria and Denies urinary incontinence Musculoskeletal: Musculoskeletal: Reports other (denies extremity edema, denies myalgia) Integumentary/Breasts: Skin/Breast: Denies new lesions and Denies rash Neurologic: Denies dizziness, Denies headache(s) and Denies seizure-like activity Endocrine: Endocrine: Denies fatigue Hematologic/Lymphatic: Hematologic/Lymphatic: Denies easy bleeding and Denies easy bruising [facility] Past Medical History Medical History Rib fractures Fecal incontinence Weakness BPH loc w urin obs/LUTS Chronic kidney disease History of skin cancer Parkinsonism Hypothyroidism (acquired) History of CVA in adulthood Vitamin D deficiency 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 Code status: Full code. Smoking packs per day: 0.5 Smoking cigarettes per day: 10.0 Years smoked: 10 Smoking pack-years: 5.00 Smoking status: Former smoker Tobacco type: cigarettes Smoking end date: 11/13/72 Alcohol intake: current Drinks per week: 1 Alcohol use details: social alcohol use in moderation Substance use: never Substance use type: does not use Do You Feel Safe in your Home?: Yes Lack of Transportation: No Lack of Food: Never True Current Housing: I Have Housing Concerned About Future Housing: No Difficulty Paying Gas/Electric Bills: No Difficulty Paying for Meds: No Currently Unemployed: No Education: Master's Degree or Higher Difficulty w/ Childcare or Family Care: No [place] Additional living arrangements comments: Lives alone in independent living at [facility]. Occupation/Education: retired Additional occupation/education comments: Retired [employer]. Spiritual care concerns: No Meds Home Medications and Allergies Home Medications ?Medication ?Instructions ?Recorded ?Confirmed ?Type multivitamin 1 tablet PO DAILY 09/29/20 06/07/25 History omega-3 fatty acids-fish oil 360 2 cap PO DAILY 02/20/24 06/07/25 History mg-1,200 mg capsule metformin 500 mg tablet See Rx Instructions .Route 12/13/24 06/07/25 Rx .COMPLEX #30 tabs lisinopril 5 mg tablet See Rx Instructions .Route 12/17/24 06/07/25 Rx .COMPLEX #90 tabs mupirocin 2 % topical ointment 1 applic topical BID #15 grams 12/18/24 06/07/25 Rx metformin 500 mg tablet 500 mg PO DAILY #90 tabs 03/17/25 06/07/25 Rx atorvastatin 10 mg tablet 10 mg PO DAILY #30 tabs 04/03/25 06/07/25 Rx tamsulosin 0.4 mg capsule See Rx Instructions .Route 04/08/25 06/07/25 Rx .COMPLEX #90 caps levothyroxine 75 mcg tablet See Rx Instructions .Route 05/20/25 06/07/25 Rx .COMPLEX #90 tabs carbidopa 25 mg-levodopa 100 mg See Rx Instructions .Route 05/26/25 06/07/25 Rx tablet .COMPLEX #90 tabs polyethylene glycol 3350 17 gram 17 g PO QAM PRN constipation 06/07/25 06/07/25 History oral powder packet (Miralax) polyethylene glycol 3350 17 17 g PO .q6 hours PRN constipation 06/07/25 06/07/25 History gram/dose oral powder (Miralax) Allergies Allergy/AdvReac Type Severity Reaction Status Date / Time No Known Allergies Allergy Unknown Verified 06/07/25 11:13 Vital Signs Vital Signs - 24 hr 06/06/25 20:22 06/07/25 00:16 06/07/25 00:31 Temperature 97.7 F Pulse Rate 73 71 71 Respiratory Rate 18 14 14 Blood Pressure 136/79 133/83 143/89 H Pulse Oximetry 98 99 99 Oxygen Delivery Room Air 06/07/25 00:46 06/07/25 01:17 06/07/25 01:31 Temperature Pulse Rate 66 83 Respiratory Rate 13 13 Blood Pressure 139/79 106/80 142/88 H Pulse Oximetry 100 97 Oxygen Delivery 06/07/25 02:16 06/07/25 03:30 06/07/25 03:31 Temperature Pulse Rate Respiratory Rate Blood Pressure 146/81 H 149/81 H Pulse Oximetry 95 96 Oxygen Delivery 06/07/25 03:46 06/07/25 04:31 06/07/25 04:46 Temperature Pulse Rate Respiratory Rate Blood Pressure 135/86 129/75 129/74 Pulse Oximetry 99 98 Oxygen Delivery 06/07/25 05:16 06/07/25 05:31 06/07/25 06:32 Temperature Pulse Rate 63 68 Respiratory Rate 11 L 10 L Blood Pressure 143/83 H 152/85 H Pulse Oximetry 100 99 98 Oxygen Delivery 06/07/25 06:45 06/07/25 06:46 06/07/25 07:00 Temperature Pulse Rate 64 61 69 Respiratory Rate 13 13 9 L Blood Pressure 144/81 H Pulse Oximetry 100 99 99 Oxygen Delivery 06/07/25 07:01 06/07/25 07:15 06/07/25 07:17 Temperature Pulse Rate 72 83 79 Respiratory Rate 9 L 17 16 Blood Pressure 171/92 H 160/101 H Pulse Oximetry 99 Oxygen Delivery 06/07/25 07:18 06/07/25 07:30 06/07/25 07:31 Temperature Pulse Rate 73 68 73 Respiratory Rate 16 11 L 13 Blood Pressure 160/87 H Pulse Oximetry 98 98 Oxygen Delivery 06/07/25 07:45 06/07/25 07:46 06/07/25 08:00 Temperature Pulse Rate 61 64 70 Respiratory Rate 10 L 11 L 14 Blood Pressure 150/78 H Pulse Oximetry 98 98 99 Oxygen Delivery 06/07/25 08:01 06/07/25 08:15 06/07/25 08:16 Temperature Pulse Rate 70 67 64 Respiratory Rate 12 12 12 Blood Pressure 170/88 H 163/82 H Pulse Oximetry 99 Oxygen Delivery 06/07/25 08:30 06/07/25 08:31 06/07/25 08:45 Temperature Pulse Rate 71 72 69 Respiratory Rate 12 14 11 L Blood Pressure 170/88 H Pulse Oximetry Oxygen Delivery 06/07/25 08:46 06/07/25 09:00 07/26/25 09:01 Temperature Pulse Rate 70 70 68 Respiratory Rate 12 13 13 Blood Pressure 169/82 H 170/96 H Pulse Oximetry Oxygen Delivery 06/07/25 09:15 06/07/25 09:16 06/07/25 09:30 Temperature Pulse Rate 71 71 76 Respiratory Rate 14 13 17 Blood Pressure 148/85 H Pulse Oximetry Oxygen Delivery 06/07/25 09:31 06/07/25 09:45 06/07/25 09:46 Temperature Pulse Rate 73 63 65 Respiratory Rate 14 12 12 Blood Pressure 167/100 H 172/82 H Pulse Oximetry Oxygen Delivery 06/07/25 10:00 06/07/25 10:01 06/07/25 11:13 Temperature 96.4 F L Pulse Rate 61 60 66 Respiratory Rate 10 L 11 L 16 Blood Pressure 170/80 H 166/87 H Pulse Oximetry 98 97 98 Oxygen Delivery Exam 2 Const: General: cooperative; No acute distress Orientation/consciousness: p atient oriented x3 HENMT: Head: normal to inspection Neck: Neck: supple Resp: Auscultation: clear to auscultation bilaterally Cardio: Rate: regular rate Rhythm: regular rhythm GI: Inspection: non-distended GI Palp: Yes Soft to palpation, No Tenderness to palpation present (GI) and No Palpable mass present Auscultation: normal bowel sounds Rectal Exam: deferred Skin: General skin exam: no rashes or lesions noted Neuro: General: patient oriented x3 Extrem: General: no edema Results Labs 06/07/25 01:06 06/07/25 01:06 Labs: Short CBC 06/07/25 Range/Units 01:06 WBC 5.2 (4.5-10.0) K/mm3 Hgb 12.0 L (14.0-18.0) g/dL Hct 36.4 L (42.0-52.0) % Plt Count 230 (150-375) k/mm3 BMP 06/07/25 01:06 Sodium 136 L Potassium 3.9 Chloride 101 Carbon Dioxide 30 BUN 14 Creatinine 1.13 Glucose 130 H Calcium 8.8 Liver Function 06/07/25 Range/Units 01:06 Total Bilirubin 0.4 (0.2-1.3) mg/dL AST 19 (17-59) U/L ALT 12 (6-50) U/L Alkaline Phosphatase 63 (38-126) U/L Albumin 3.6 (3.5-5.1) g/dL Urine 06/07/25 Range/Units 01:47 Urine Color Yellow (Yellow) Urine Appearance Clear (Clear) Urine pH 5.5 (5.0-9.0) Ur Specific [place] 1.021 (1.001-1.035) Urine Protein Negative (Negative) mg/dL Urine Glucose (UA) Negative (Negative) mg/dL
[2025-06-08] MEDS: LEVOTHYROXINE SODIUM 75 MCG TABLET BY MOUTH (05:32)
[2025-06-08 06:00] VITALS: BP 137/87; PULSE 73; RESP 18; TEMP 36.6; O2SAT 98
--- NOTE | 2025-06-08 07:51 | P.PNIM_ITS ---
Progress Note: A&P Assessment and Plan (1) Colon stricture: Code(s): K56.699 - Other intestinal obstruction unspecified as to partial versus complete obstruction Status: Acute Assessment and Plan: - was seen in the ED 06/05 with complaints of abdominal pain. CT showed concerns for stricture at that time. ED consulted with GI who recommended discharge with bowel regimen and OP follow-up. Patient re-presented 06/07 with inability to have BM. - per GI, last colonoscopy 2 years ago without obvious pathology -CT A/P showed redemonstration of stricture within the sigmoid colon with interval progression of fecal stasis within the proximal colon - differential includes diverticular pathology, sigmoid spasm, malignancy - GI consulted - recommended to continue Miralax BID. Gastrografin enema study to be obtained tomorrow. - surgery consulted, appreciate recs - has had multiple bowel movements since admission. Benign abdominal exam. (2) Constipation: Qualifiers: Constipation type: unspecified constipation type Qualified Code(s): K59.00 - Constipation, unspecified Code(s): K59.00 - Constipation, unspecified Status: Acute Assessment and Plan: - in setting of above - had multiple bowel movements after suppositories - continue Miralax BID (3) Benign essential hypertension: Code(s): I10 - Essential (primary) hypertension Status: Chronic Assessment and Plan: -no longer on lisinopril. Blood pressures have been stable (4) Hyperlipidemia: Qualifiers: Hyperlipidemia type: mixed hyperlipidemia Qualified Code(s): E78.2 - Mixed hyperlipidemia Code(s): E78.5 - Hyperlipidemia, unspecified Status: Chronic Assessment and Plan: - no longer on statin (5) Pre-diabetes: Code(s): R73.03 - Prediabetes Status: Chronic Assessment and Plan: - no longer on metformin (6) Hypothyroidism (acquired): Code(s): E03.9 - Hypothyroidism, unspecified Status: Acute Assessment and Plan: - continue Synthroid (7) Benign prostatic hyperplasia: Code(s): N40.0 - Benign prostatic hyperplasia without lower urinary tract symptoms Status: Acute Assessment and Plan: - continue Flomax (8) Parkinsonism: Qualifiers: Parkinsonism type: unspecified Qualified Code(s): G20 - Parkinson's disease Code(s): G20 - Parkinson's disease Status: Acute Assessment and Plan: - continue Sinemet (9) Rib fractures: Qualifiers: Encounter type: subsequent encounter Fracture healing: with routine healing Fracture type: closed Laterality: left Qualified Code(s): S22.42XD - Multiple fractures of ribs, left side, subsequent encounter for fracture with routine healing Code(s): S22.49XA - Multiple fractures of ribs, unspecified side, initial encounter for closed fracture Status: Acute Assessment and Plan: - diagnosed as OP due to recent mechanical fall - incentive spirometry Subjective Date/time seen: 06/08/25 07:51 Interval history: Patient is an 85 yo female with PMH of hypertension, prediabetes, parkinsonian who presented with constipation. Patient seen and examined up in chair. Has had multiple bowel movements since being admitted. Denies abdominal pain or blood in the stool. Discussed plan of care including awaiting barium enema test, patient agreeable. Review of Systems Review of Systems: All systems reviewed & are unremarkable except as noted in HPI and below Exam Narrative: General: NAD Eyes: EOMI ENT: neck supple Cardiovascular: Regular rate and rhythm Respiratory: Clear to auscultation, respirations even and unlabored on RA Gastrointestinal: Soft, non tender, bowel sounds active Genitourinary: no suprapubic tenderness Musculoskeletal: No edema Skin: warm, dry Neuro: Alert. Psych: Mood appropriate Objective Data Vital Signs Vital Signs: Vital Signs - 24 hr 06/07/25 08:00 06/07/25 08:01 06/07/25 08:15 Temperature Pulse Rate 70 70 67 Respiratory Rate 14 12 12 Blood Pressure 170/88 H Pulse Oximetry 99 99 Oxygen Delivery 06/07/25 08:16 06/07/25 08:30 06/07/25 08:31 Temperature Pulse Rate 64 71 72 Respiratory Rate 12 12 14 Blood Pressure 163/82 H 170/88 H Pulse Oximetry Oxygen Delivery 06/07/25 08:45 06/07/25 08:46 06/07/25 09:00 Temperature Pulse Rate 69 70 70 Respiratory Rate 11 L 12 13 Blood Pressure 169/82 H Pulse Oximetry Oxygen Delivery 06/07/25 09:01 06/07/25 09:15 06/07/25 09:16 Temperature Pulse Rate 68 71 71 Respiratory Rate 13 14 13 Blood Pressure 170/96 H 148/85 H Pulse Oximetry Oxygen Delivery 06/07/25 09:30 06/07/25 09:31 06/07/25 09:45 Temperature Pulse Rate 76 73 63 Respiratory Rate 17 14 12 Blood Pressure 167/100 H Pulse Oximetry Oxygen Delivery 06/07/25 09:46 06/07/25 10:00 06/07/25 10:01 Temperature Pulse Rate 65 61 60 Respiratory Rate 12 10 L 11 L Blood Pressure 172/82 H 170/80 H Pulse Oximetry 98 97 Oxygen Delivery 06/07/25 11:13 06/07/25 14:00 06/07/25 16:33 Temperature 96.4 F L 97.5 F L Pulse Rate 66 91 Respiratory Rate 16 16 Blood Pressure 166/87 H 132/75 Pulse Oximetry 98 97 98 Oxygen Delivery Room Air 06/07/25 20:00 06/07/25 22:25 06/08/25 06:00 Temperature 97.9 F 97.9 F Pulse Rate 66 73 Respiratory Rate 18 18 Blood Pressure 130/79 137/87 Pulse Oximetry 97 98 Oxygen Delivery Room Air Intake/Output Intake/Output: Intake & Output 06/05/25 06/06/25 06/07/25 06/08/25 23:59 23:59 23:59 23:59 Intake Total 830 400 Output Total 425 600 Balance 405 -200 Meds/Results Medications: Active Medications Generic Name Dose Route Start Last Admin Trade Name Freq PRN Reason Stop Dose Admin Acetaminophen 650 mg 06/07/25 08:36 Acetaminophen 325 Mg Tablet PO Q4H PRN Mild Pain (1-3) or Fever Bisacodyl 5 mg 06/08/25 09:00 Bisacodyl 5 Mg Tablet Ec PO QAM [facility] Carbidopa/Levodopa 1 tablet 06/07/25 13:00 06/07/25 17:10 Carbidopa/Levodopa 25/100 Mg Tablet BY MOUTH 1 tablet TID ARIES Administration Enoxaparin Sodium 40 mg 06/08/25 09:00 Enoxaparin 40 Mg/0.4 Ml Syringe SUB-Q DAILY [facility] Fish Oil 2 gm 06/08/25 09:00 [place] 3 Polyunsat Fatty Acids 1 Gm Cap PO DAILY ARIES Levothyroxine Sodium 75 mcg 06/07/25 13:00 06/08/25 05:32 Levothyroxine Sodium 75 Mcg Tablet BY MOUTH 75 mcg DAILY@0630 ARIES Administration Multivitamins Therapeutic 1 tablet 06/08/25 09:00 Multivitamins Therapeutic Tab (*Bkc) PO DAILY [facility] Ondansetron HCl 4 mg 06/07/25 08:36 Ondansetron Inj 4 Mg/2 Ml Vial IV PUSH Q4H PRN Nausea Polyethylene Glycol 17 gm 06/07/25 09:00 06/07/25 17:10 Polyethylene Glycol 3350 17 Gm Powd.Pack PO 17 gm TID ARIES Administration Polyethylene Glycol 17 gm 06/07/25 12:35 Polyethylene Glycol 3350 17 Gm Powd.Pack PO QAM PRN constipation Tamsulosin HCl 0.4 mg 06/07/25 13:00 06/07/25 13:24 Tamsulosin Hcl 0.4 Mg Capsule BY MOUTH 0.4 mg DAILY ARIES Administration Radiology Results: ITS Impressions Abdomen/Pelvis CT 06/07/25 07:20 IMPRESSION: Redemonstration of the stricture within the sigmoid colon, with interval progression of fecal stasis within the proximal colon. These findings are an interval change from the 2019 examination as detailed above. Labs Labs: Laboratory Results - last 24 hr 06/07/25 21:52 POC Capillary Glucose 127 H Quality VTE Prophylaxis VTE prophylaxis: pharmacologic ordered
[2025-06-08] MEDS: TAMSULOSIN HCL 0.4 MG CAPSULE BY MOUTH (09:46)
[2025-06-08] MEDS: MULTIVITAMINS THERAPEUTIC TAB (*BKC) 1 TABLET PO (09:46)
[2025-06-08] MEDS: OMEGA 3 POLYUNSAT FATTY ACIDS 1 GM CAP 2 GM PO (09:46)
[2025-06-08] MEDS: CARBIDOPA/LEVODOPA 25/100 MG TABLET 1 TABLET BY MOUTH ×3 (09:46→16:58)
[2025-06-08] MEDS: BISACODYL 5 MG TABLET EC PO (09:46)
[2025-06-08] MEDS: ENOXAPARIN 40 MG/0.4 ML SYRINGE SUB-Q (09:48)
--- NOTE | 2025-06-08 10:50 | WPDGIPROGNO ---
Progress Note: A&P Assessment and Plan (1) Constipation: Code(s): K59.00 - Constipation, unspecified Status: Acute (2) Colon stricture: Code(s): K56.699 - Other intestinal obstruction unspecified as to partial versus complete obstruction Status: Acute (3) Rib fractures: Qualifiers: Encounter type: subsequent encounter Fracture type: closed Laterality: left Fracture healing: with routine healing Qualified Code(s): S22.42XD - Multiple fractures of ribs, left side, subsequent encounter for fracture with routine healing Code(s): S22.49XA - Multiple fractures of ribs, unspecified side, initial encounter for closed fracture Status: Acute Plan Overall patient is stable does not appear to be obstructed getting MiraLax having bowel movements denies any nausea vomiting. We had a discussion about the CT scan that showed a stricture patient's last colonoscopy done 2 years ago did not show any obvious what pathology. Waiting for the Gastrografin enema which looks like will be done tomorrow. I advised the patient that if even if the Gastrografin enema comes out to be negative he will need colonoscopy at some point which can be decided after looking at the MRI results. Surgical consult has been also placed Regular GI Service Dr. Hay will resume the patient care tomorrow. Subjective Date/time seen: 06/08/25 10:50 Interval history: Patient is doing well denies any nausea vomiting abdominal pain according to him he had bowel movement without any blood in it Review of Systems Review of Systems: All systems reviewed & are unremarkable except as noted in HPI and below Constitutional: Constitutional: Denies chills, Denies fatigue, Denies fever(s), Denies headache(s), Denies malaise, Denies weight gain and Denies weight loss Eyes: Eyes: Denies change in vision ENT: Denies dizziness, Denies headache(s) and Reports other (No change in hearing) Cardiovascular: Cardiovascular: Denies chest pain, Denies dyspnea and Reports other (denies palpitations, denies orthopnea) Respiratory: Respiratory: Denies cough, Denies dyspnea and Reports other (denies sputum production, denies hemoptysis) Gastrointestinal: Gastrointestinal: Reports as per HPI Genitourinary: Genitourinary: Denies hematuria, Denies dysuria and Denies urinary incontinence Musculoskeletal: Musculoskeletal: Reports other (denies extremity edema, denies myalgia) Integumentary/Breasts: Skin/Breast: Denies new lesions and Denies rash Neurologic: Denies dizziness, Denies headache(s) and Denies seizure-like activity Endocrine: Endocrine: Denies fatigue Hematologic/Lymphatic: Hematologic/Lymphatic: Denies easy bleeding and Denies easy bruising Exam Const: General: cooperative; No acute distress Orientation/consciousness: patient oriented x3 HENMT: Head: normal to inspection Neck: Neck: supple Resp: Auscultation: clear to auscultation bilaterally Cardio: Rate: regular rate Rhythm: regular rhythm GI: Inspection: non-distended GI Palp: Yes Soft to palpation, No Tenderness to palpation present (GI) and No Palpable mass present Auscultation: normal bowel sounds Rectal Exam: deferred Skin: General skin exam: no rashes or lesions noted Neuro: General: patient oriented x3 Extrem: General: no edema Objective Data Vital Signs Vital Signs: Vital Signs - 24 hr 06/07/25 11:13 06/07/25 14:00 06/07/25 16:33 Temperature 96.4 F L 97.5 F L Pulse Rate 66 91 Respiratory Rate 16 16 Blood Pressure 166/87 H 132/75 Pulse Oximetry 98 97 98 Oxygen Delivery Room Air 06/07/25 20:00 06/07/25 22:25 06/08/25 06:00 Temperature 97.9 F 97.9 F Pulse Rate 66 73 Respiratory Rate 18 18 Blood Pressure 130/79 137/87 Pulse Oximetry 97 98 Oxygen Delivery Room Air Intake/Output Intake/Output: Intake & Output 06/05/25 06/06/25 06/07/25 06/08/25 23:59 23:59 23:59 23:59 Intake Total 830 400 Output Total 425 600 Balance 405 -200 Meds/Results Medications: Active Medications Generic Name Dose Route Start Last Admin Trade Name Freq PRN Reason Stop Dose Admin Acetaminophen 650 mg 06/07/25 08:36 Acetaminophen 325 Mg Tablet PO Q4H PRN Mild Pain (1-3) or Fever Bisacodyl 5 mg 06/08/25 09:00 06/08/25 09:46 Bisacodyl 5 Mg Tablet Ec PO 5 mg QAM ARIES Administration Carbidopa/Levodopa 1 tablet 06/07/25 13:00 06/08/25 09:46 Carbidopa/Levodopa 25/100 Mg Tablet BY MOUTH 1 tablet TID ARIES Administration Enoxaparin Sodium 40 mg 06/08/25 09:00 06/08/25 09:48 Enoxaparin 40 Mg/0.4 Ml Syringe SUB-Q 40 mg DAILY [facility] Administration Fish Oil 2 gm 06/08/25 09:00 06/08/25 09:46 [place] 3 Polyunsat Fatty Acids 1 Gm Cap PO 2 gm DAILY ARIES Administration Levothyroxine Sodium 75 mcg 06/07/25 13:00 06/08/25 05:32 Levothyroxine Sodium 75 Mcg Tablet BY MOUTH 75 mcg DAILY@0630 ARIES Administration Multivitamins Therapeutic 1 tablet 06/08/25 09:00 06/08/25 09:46 Multivitamins Therapeutic Tab (*Bkc) PO 1 tablet DAILY [facility] Administration Ondansetron HCl 4 mg 06/07/25 08:36 Ondansetron Inj 4 Mg/2 Ml Vial IV PUSH Q4H PRN Nausea Polyethylene Glycol 17 gm 06/07/25 09:00 06/08/25 09:48 Polyethylene Glycol 3350 17 Gm Powd.Pack PO 17 gm TID ARIES Administration Polyethylene Glycol 17 gm 06/07/25 12:35 Polyethylene Glycol 3350 17 Gm Powd.Pack PO QAM PRN constipation Tamsulosin HCl 0.4 mg 06/07/25 13:00 06/08/25 09:46 Tamsulosin Hcl 0.4 Mg Capsule BY MOUTH 0.4 mg DAILY ARIES Administration Radiology Results: ITS Impressions Abdomen/Pelvis CT 06/07/25 07:20 IMPRESSION: Redemonstration of the stricture within the sigmoid colon, with interval progression of fecal stasis within the proximal colon. These findings are an interval change from the 2019 examination as detailed above. Labs Labs: Laboratory Results - last 24 hr 06/07/25 06/08/25 21:52 08:25 POC Capillary Glucose 127 H 114 H
--- NOTE | 2025-06-08 11:13 | PC.NURSE ---
Patient noncompliant with the bed alarm and chair alarm. Patient is alert and oriented. Patient stating I do not want to be on alarms and should be able to get up when I want. I walk at [place] alone and I want the exercise. RN explained We have alarms on our patient's for safety if you meet the criteria for a fall risk. RN asked patient Have you fallen recently? Patient responded Yes about 10 days ago. RN explained to patient that this meets criteria for a bed alarm for patient's safety. Patient is still being noncompliant with alarms.
[2025-06-08 12:59] VITALS: O2SAT 98
[2025-06-08 14:00] VITALS: BP 129/69; PULSE 77; RESP 14; TEMP 36.4; O2SAT 100
--- NOTE | 2025-06-08 14:15 | P.CONGS_ITS ---
Assessment and Plan Assessment and plan (1) Abnormal CT of the abdomen: Code(s): R93.5 - Abnormal findings on diagnostic imaging of other abdominal regions, including retroperitoneum Status: Acute Assessment and Plan: * I have reviewed the CT and assessed the patient. He is moving his bowels and clinically does not appear to be completely obstructed. Gastrografin enema ordered for tomorrow to assess for any persistent narrowing in the colon. No surgical intervention required at this time but will be available if there is any significant stricture identified. Likely it would still be best to perform an endoscopy to assess prior to proceeding with surgery if a stricture is found. Patient does not appear to have any longstanding history of diverticulitis and has had a colonoscopy within the past 2 years which likely would negate neoplasm or diverticular stricture. Will continue to follow. (2) Constipation: Qualifiers: Constipation type: unspecified constipation type Qualified Code(s): K 59.00 - Constipation, unspecified Code(s): K59.00 - Constipation, unspecified Status: Acute (3) Rib fractures: Qualifiers: Encounter type: subsequent encounter Fracture type: closed Laterality: left Fracture healing: with routine healing Qualified Code(s): S22.42XD - Multiple fractures of ribs, left side, subsequent encounter for fracture with routine healing Code(s): S22.49XA - Multiple fractures of ribs, unspecified side, initial encounter for closed fracture Status: Acute (4) Parkinson's disease with dyskinesia and fluctuating manifestations: Code(s): G20.B2 - Parkinson's disease with dyskinesia, with fluctuations Status: Acute History of Present Illness Consult details Consult date: 06/08/25 Reason for consult: other (Possible sigmoid stricture) Requesting physician: Thierno Peterson MD Narrative: This is an 85-year-old man who I am asked to see for a possible sigmoid stricture. He was admitted on 06/07/2025 with abdominal pain and had not been able to have a bowel movement in over a week. He has a recent history of a fall and sustained some rib fractures. He states that after that is when his abdominal pain and constipation developed. He had gone to the emergency department on 06/05/[address] was done at that time which showed evidence of a stricture of the colon. He was discharged from the emergency department with instructions to start MiraLax. He then returned 2 days later with worsening symptoms and still no bowel movement. A repeat CT was done at that time which still showed evidence of a sigmoid stricture. The patient did have a colonoscopy in 2022 and there was no mention of a stricture or narrowing at that time. He denied any problems with his bowel habits prior to the fall. Since being admitted he has started moving his bowels and has now had multiple BMs. He denies any abdominal pain, nausea, or vomiting. Review of Systems 2 Review of Systems: All systems reviewed & are unremarkable except as noted in HPI and below Eyes: Eyes: Denies change in vision ENT: Denies hearing loss, Denies neck pain and Denies sore throat Cardiovascular: Cardiovascular: Denies chest pain and Denies dyspnea Respiratory: Respiratory: Denies cough, Denies dyspnea and Denies wheezing Gastrointestinal: Gastrointestinal: Reports as per HPI Genitourinary: Genitourinary: Denies hematuria and Denies dysuria Musculoskeletal: Musculoskeletal: Denies arthralgias, Denies joint swelling and Denies neck pain Allergic/Immunologic: Allergic/Immunologic: Denies wheezing [facility] Past Medical History Medical History (Updated 06/08/25 @ 14:22 by Fredy Lockwood DO) Rib fractures Fecal incontinence Weakness BPH loc w urin obs/LUTS Chronic kidney disease History of skin cancer Parkinsonism Hypothyroidism (acquired) History of CVA in adulthood Vitamin D deficiency 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 Code status: Full code. Smoking packs per day: 0.5 Smoking cigarettes per day: 10.0 Years smoked: 10 Smoking pack-years: 5.00 Smoking status: Former smoker Tobacco type: cigarettes Smoking end date: 11/13/72 Alcohol intake: current Drinks per week: 1 Alcohol use details: social alcohol use in moderation Substance use: never Substance use type: does not use Do You Feel Safe in your Home?: Yes Lack of Transportation: No Lack of Food: Never True Current Housing: I Have Housing Concerned About Future Housing: No Difficulty Paying Gas/Electric Bills: No Difficulty Paying for Meds: No Currently Unemployed: No Education: Master's Degree or Higher Difficulty w/ Childcare or Family Care: No [facility] Additional living arrangements comments: Lives alone in independent living at [facility]. Occupation/Education: retired Additional occupation/education comments: Retired [employer]. Spiritual care concerns: No Meds Home Medications and Allergies Home Medications ?Medication ?Instructions ?Recorded ?Confirmed ?Type multivitamin 1 tablet PO DAILY 09/29/20 06/07/25 History omega-3 fatty acids-fish oil 360 2 cap PO DAILY 02/20/24 06/07/25 History mg-1,200 mg capsule metformin 500 mg tablet See Rx Instructions .Route 12/13/24 06/07/25 Rx .COMPLEX #30 tabs lisinopril 5 mg tablet See Rx Instructions .Route 12/17/24 06/07/25 Rx .COMPLEX #90 tabs mupirocin 2 % topical ointment 1 applic topical BID #15 grams 12/18/24 06/07/25 Rx metformin 500 mg tablet 500 mg PO DAILY #90 tabs 03/17/25 06/07/25 Rx atorvastatin 10 mg tablet 10 mg PO DAILY #30 tabs 04/03/25 06/07/25 Rx tamsulosin 0.4 mg capsule See Rx Instructions .Route 04/08/25 06/07/25 Rx .COMPLEX #90 caps levothyroxine 75 mcg tablet See Rx Instructions .Route 05/20/25 06/07/25 Rx .COMPLEX #90 tabs carbidopa 25 mg-levodopa 100 mg See Rx Instructions .Route 05/26/25 06/07/25 Rx tablet .COMPLEX #90 tabs polyethylene glycol 3350 17 gram 17 g PO QAM PRN constipation 06/07/25 06/07/25 History oral powder packet (Miralax) polyethylene glycol 3350 17 17 g PO .q6 hours PRN constipation 06/07/25 06/07/25 History gram/dose oral powder (Miralax) Allergies Allergy/AdvReac Type Severity Reaction Status Date / Time No Known Allergies Allergy Unknown Verified 06/07/25 11:13 Vital Signs Vital Signs - 24 hr 06/07/25 16:33 06/07/25 20:00 06/07/25 22:25 Temperature 97.9 F Pulse Rate 66 Respiratory Rate 18 Blood Pressure 130/79 Pulse Oximetry 98 97 Oxygen Delivery Room Air Room Air 06/08/25 06:00 06/08/25 09:46 06/08/25 12:59 Temperature 97.9 F Pulse Rate 73 Respiratory Rate 18 Blood Pressure 137/87 Pulse Oximetry 98 98 Oxygen Delivery Room Air Room Air Exam 2 Const: General: alert; No acute distress Orientation/consciousness: patient oriented x3 Limitations: no limitations HENMT: Head: normocephalic and atraumatic Ears: hearing grossly normal bilaterally Face/Nose/Sinus: Normal external nose present and Normal nares present Mouth: Yes Normal oral and palatal mucosa present and Yes moist mucous membranes Eyes: General: appearance normal, both eyes and all related structures C onjunctivae: conjunctivae normal Sclera: sclerae normal Pupils: Equal, round and reactive pupils present EOM: EOMs intact bilaterally Neck: Neck: normal visual inspection, full ROM, no lymphadenopathy, supple and no JVD Lymphatic: no lymphadenopathy noted Chest: Chest palpation & inspection: normal inspection of the chest Resp: Effort & Inspection: normal respiratory effort and able to speak in complete sentences Auscultation: clear to auscultation bilaterally P ercussion: percussion normal Cardio: Jugular venous distension: no JVD Rate: regular rate Rhythm: r egular rhythm Heart sounds: S1 normal heart sound present and S2 normal heart sound present Peripheral pulses: Peripheral pulses 2+ throughout GI: Inspection: normal to inspection and non-distended GI Palp: Yes Soft to palpation, No Tenderness to palpation present (GI), No Guarding due to palpation present (GI), No Palpable mass present and No Rebound tenderness present P ercussion: Yes normal to percussion Auscultation: normal bowel sounds : General: Yes no CVA tenderness Back/Spine/Pelvis: Back: no CVA tenderness Skin: General skin exam: normal color and dry skin Neuro: General: patient oriented x3, gait normal, moves all extremities, no focal motor deficits and CN's II-XI intact bilaterally Cranial nerves: Yes Equal, round and reactive pupils present Speech: normal speech Extrem: General: normal to inspection and capillary refill normal Results Labs 06/07/25 01:06 06/07/25 01:06 Labs: Abnormal lab results 06/07/25 06/08/25 06/08/25 Range/Units 21:52 08:25 12:15 POC Capillary Glucose 127 H 114 H 125 H (65-105) mg/dl All other labs normal. Imaging Additional studies: ITS Impressions Abdomen/Pelvis CT 06/07/25 07:20 IMPRESSION: Redemonstration of the stricture within the sigmoid colon, with interval progression of fecal stasis within the proximal colon. These findings are an interval change from the 2019 examination as detailed above.
[2025-06-08 22:22] VITALS: PULSE 67; RESP 20; O2SAT 100
[2025-06-08 22:29] VITALS: BP 143/77; PULSE 66; RESP 18; TEMP 36.4; O2SAT 100
[2025-06-09 06:00] VITALS: BP 137/78; PULSE 80; RESP 18; TEMP 36.5; O2SAT 100
[2025-06-09] MEDS: LEVOTHYROXINE SODIUM 75 MCG TABLET BY MOUTH (06:37)
[2025-06-09 07:20] VITALS: O2SAT 100
--- NOTE | 2025-06-09 11:20 | PC.NURSE ---
Patient off of unit to XRAY
[2025-06-09] MEDS: CARBIDOPA/LEVODOPA 25/100 MG TABLET 1 TABLET BY MOUTH (12:44)
--- NOTE | 2025-06-09 13:56 | P.PNGS_ITS ---
Progress Note: A&P Assessment and Plan (1) Abnormal CT of the abdomen: Code(s): R93.5 - Abnormal findings on diagnostic imaging of other abdominal regions, including retroperitoneum Status: Acute Assessment and Plan: * Water-soluble enema imaging today did not demonstrate any colonic stricture. Having regular bowel movements. Tolerating regular diet without nausea or vomiting. No surgical intervention necessary at this time. Surgically stable for discharge, if okayed with GI. Patient would benefit from colonoscopy upon discharge. (2) Constipation: Qualifiers: Constipation type: unspecified constipation type Qualified Code(s): K59.00 - Constipation, unspecified Code(s): K59.00 - Constipation, unspecified Status: Acute (3) Rib fractures: Qualifiers: Encounter type: subsequent encounter Fracture type: closed Laterality: left Fracture healing: with routine healing Qualified Code(s): S22.42XD - Multiple fractures of ribs, left side, subsequent encounter for fracture with routine healing Code(s): S22.49XA - Multiple fractures of ribs, unspecified side, initial encounter for closed fracture Status: Acute (4) Parkinson's disease with dyskinesia and fluctuating manifestations: Code(s): G20.B2 - Parkinson's disease with dyskinesia, with fluctuations Status: Acute Time Spent With Patient Time: Discussed patient's case and plan of care with Dr. Lockwood. Subjective Subjective Date/Time Seen: 06/09/25 13:56 Patient reports: no new complaints, tolerating a regular diet and bowel movement Interval history: Patient is doing well today. Sitting up in chair eating lunch. No nausea or vomiting. Having regular bowel movements. Gastrografin enema imaging obtained today in demonstrated mild diverticulosis along the sigmoid colon. No mention of stricture. Exam Const: General: comfortable and no acute distress GI: Inspection: normal to inspection and distended GI Palp: Yes Soft to palpation, No Tenderness to palpation present (GI) and No Guarding due to palpation present (GI) Auscultation: normal bowel sounds Other: Mild distention, but abdomen soft Objective Data Vital Signs Vital Signs: Vital Signs - 24 hr 06/08/25 14:00 06/08/25 20:00 06/08/25 22:22 Temperature 97.6 F Pulse Rate 77 67 Respiratory Rate 14 20 Blood Pressure 129/69 Pulse Oximetry 100 100 Oxygen Delivery Room Air Room Air Fraction of Inspired Oxygen 21 07/27/25 22:29 06/09/25 06:00 06/09/25 07:20 Temperature 97.6 F 97.7 F Pulse Rate 66 80 Respiratory Rate 18 18 Blood Pressure 143/77 H 137/78 Pulse Oximetry 100 100 100 Oxygen Delivery Room Air Fraction of Inspired Oxygen 21 06/09/25 09:27 Temperature Pulse Rate Respiratory Rate Blood Pressure Pulse Oximetry Oxygen Delivery Room Air Fraction of Inspired Oxygen Intake/Output Intake/Output: Intake & Output 06/06/25 06/07/25 06/08/25 06/09/25 23:59 23:59 23:59 23:59 Intake Total 830 1914 Output Total 529 634 2433 Balance 405 1114 -1550 Meds/Results Medications: Active Medications Generic Name Dose Route Start Last Admin Trade Name Freq PRN Reason Stop Dose Admin Acetaminophen 650 mg 06/07/25 08:36 Acetaminophen 325 Mg Tablet PO Q4H PRN Mild Pain (1-3) or Fever Bisacodyl 5 mg 06/08/25 09:00 06/09/25 08:47 Bisacodyl 5 Mg Tablet Ec PO Not Given QAM ARIES Carbidopa/Levodopa 1 tablet 06/07/25 13:00 06/09/25 12:44 Carbidopa/Levodopa 25/100 Mg Tablet BY MOUTH 1 tablet TID ARIES Administration Enoxaparin Sodium 40 mg 06/08/25 09:00 06/09/25 08:47 Enoxaparin 40 Mg/0.4 Ml Syringe SUB-Q Not Given DAILY ARIES Fish Oil 2 gm 06/08/25 09:00 06/09/25 08:47 [place] 3 Polyunsat Fatty Acids 1 Gm Cap PO Not Given DAILY ARIES Levothyroxine Sodium 75 mcg 06/07/25 13:00 06/09/25 06:37 Levothyroxine Sodium 75 Mcg Tablet BY MOUTH 75 mcg DAILY@0630 ARIES Administration Multivitamins Therapeutic 1 tablet 06/08/25 09:00 06/09/25 08:47 Multivitamins Therapeutic Tab (*Bkc) PO Not Given DAILY ARIES Ondansetron HCl 4 mg 06/07/25 08:36 Ondansetron Inj 4 Mg/2 Ml Vial IV PUSH Q4H PRN Nausea Polyethylene Glycol 17 gm 06/07/25 09:00 06/09/25 12:40 Polyethylene Glycol 3350 17 Gm Powd.Pack PO Not Given TID ARIES Polyethylene Glycol 17 gm 06/07/25 12:35 Polyethylene Glycol 3350 17 Gm Powd.Pack PO QAM PRN constipation Tamsulosin HCl 0.4 mg 06/07/25 13:00 06/09/25 08:47 Tamsulosin Hcl 0.4 Mg Capsule BY MOUTH Not Given DAILY [facility] Radiology Results: ITS Impressions Abdomen/Pelvis CT 06/07/25 07:20 IMPRESSION: Redemonstration of the stricture within the sigmoid colon, with interval progression of fecal stasis within the proximal colon. These findings are an interval change from the 2019 examination as detailed above. Enema w/Water Soluble 06/09/25 13:28 IMPRESSION: 1. Mild diverticulosis along the sigmoid colon.
[2025-06-09 14:00] VITALS: BP 122/71; PULSE 85; RESP 12; TEMP 36.4; O2SAT 100
--- NOTE | 2025-06-09 14:16 | P.DS_ITS ---
DS: Admitting Diagnosis Discharge Date 06/09/25 Admitting Diagnosis - concern for colon stricture - constipation - HTN - HLD - rib fractures - parkinsonism DS: Discharge Diagnosis Discharge Diagnosis (1) Constipation: Qualifiers: Constipation type: unspecified constipation type Qualified Code(s): K59.00 - Constipation, unspecified Code(s): K59.00 - Constipation, unspecified Status: Acute (2) Benign essential hypertension: Code(s): I10 - Essential (primary) hypertension Status: Chronic (3) Hyperlipidemia: Qualifiers: Hyperlipidemia type: mixed hyperlipidemia Qualified Code(s): E78.2 - Mixed hyperlipidemia Code(s): E78.5 - Hyperlipidemia, unspecified Status: Chronic (4) Pre-diabetes: Code(s): R73.03 - Prediabetes Status: Chronic (5) Hypothyroidism (acquired): Code(s): E03.9 - Hypothyroidism, unspecified Status: Acute (6) Benign prostatic hyperplasia: Code(s): N40.0 - Benign prostatic hyperplasia without lower urinary tract symptoms Status: Acute (7) Parkinsonism: Qualifiers: Parkinsonism type: unspecified Qualified Code(s): G20 - Parkinson's disease Code(s): G20 - Parkinson's disease Status: Acute (8) Rib fractures: Qualifiers: Encounter type: subsequent encounter Fracture type: closed Laterality: left Fracture healing: with routine healing Qualified Code(s): S22.42XD - Multiple fractures of ribs, left side, subsequent encounter for fracture with routine healing Code(s): S22.49XA - Multiple fractures of ribs, unspecified side, initial encounter for closed fracture Status: Acute DS: Summary Hospital Course Reason for hospitalization: - concern for colon stricture - constipation - HTN - HLD - rib fractures - parkinsonism Hospital Course: Patient is an 85-year-old male with history hypothyroidism, parkinsonism, hypertension, hyperlipidemia who presented to the emergency department with complaints of constipation. He was seen in the emergency department earlier in the week with similar complaints. Imaging at that time showed concern for colon stricture and he was discharged with a bowel regimen and instructed to follow up closely as outpatient. He re-presented due to inability to have a bowel movement. CT abdomen and pelvis on admission showed redemonstration of the stricture within the sigmoid colon with interval progression of fecal stasis within the proximal colon. Patient was admitted for further evaluation by GI and General surgery. He was started on aggressive bowel regimen and had multiple bowel movements. Patient underwent Gastrografin enema study which showed mild diverticulosis along the sigmoid colon, no concern for stricture or obstruction. He was cleared by General surgery for discharge. His abdominal exam remained benign and he was tolerating a regular diet. He was instructed by GI to follow up closely for outpatient colonoscopy. He was instructed to continue MiraLax twice daily to avoid constipation. He was instructed to continue incentive spirometry for his previously diagnosed rib fractures. Plan to continue home medications for parkinsonism, hypothyroidism. Patient was discharged home in stable condition. He was provided with strict return precautions and discharge. Status at Discharge Functional status at discharge: independent ambulation Time Spent with Patient Time attestation: Total time spent providing and/or coordinating discharge services: Time spent: Greater than 30 minutes Exam Narrative: General: NAD Eyes: EOMI ENT: neck supple Cardiovascular: Regular rate and rhythm Respiratory: Clear to auscultation, respirations even and unlabored on RA Gastrointestinal: Soft, non tender, bowel sounds active Genitourinary: no suprapubic tenderness Musculoskeletal: No edema Skin: warm, dry Neuro: Alert. Psych: Mood appropriate DS: Data Data Completed and Pending Completed studies during hospitalization: -CT abdomen pelvis -Gastrografin enema Discharge Plan Discharge Attending physician on discharge: Luz Elena Mckeon Consulting providers: Thierno Peterson; Vijaya Ledesma; Fredy Lockwood Discharging Clinician: Vijaya Ledesma Anticipated Discharge Date/Time: 06/09/25 14:11 Patient Disposition: Home Activity: as tolerated Diet: regular and high fiber Discharge Instructions: Take all medications as prescribed. Finish antibiotics if prescribed, even if you are feeling better. Follow-up with your primary care provider in one week. While in the hospital, evaluated by General surgery and Gastroenterology. They recommended that you follow up for an outpatient colonoscopy. Please call to schedule an appointment with a field sales associate. Continue taking MiraLax twice daily for regular bowel movements. Decrease dose to once daily if stools are loose. Return to the emergency department if you develop chest pain, shortness of breath, persistent fever >100.4, confusion, loss of consciousness, severe abdominal pain. Patient Instructions: Constipation (GEN) Patient Language: Frisian Stand Alone Forms: General Discharge Information Follow-up/Referrals: Thierno Peterson MD [Physician] - Call for Appointment (colonoscopy) Raj Stevens MD [Primary Care Provider] - Call for Appointment (in 5-7 days) Discharge Medications: Continued mupirocin 2 % ointment 1 applic topical BID Qty: 15 0RF omega-3 fatty acids-fish oil 360-1,200 mg capsule 2 cap PO DAILY multivitamin Tablet 1 tablet PO DAILY metformin 500 mg tablet 500 mg PO DAILY Qty: 90 0RF tamsulosin 0.4 mg capsule See Rx Instructions .ROUTE .COMPLEX Qty: 90 1RF Dose Instruction: TAKE 1 CAPSULE DAILY Rx Instructions: TAKE 1 CAPSULE DAILY levothyroxine 75 mcg tablet See Rx Instructions .ROUTE .COMPLEX Qty: 90 2RF Dose Instruction: TAKE 1 TABLET DAILY Rx Instructions: TAKE 1 TABLET DAILY carbidopa-levodopa 25-100 mg tablet See Rx Instructions .ROUTE .COMPLEX Qty: 90 1RF Dose Instruction: TAKE 1 TABLET BY MOUTH THREE TIMES DAILY Rx Instructions: TAKE 1 TABLET BY MOUTH THREE TIMES DAILY Changed polyethylene glycol 3350 [Miralax] 17 gram/dose powder 17 g PO BID 30 Days Qty: 1020 0RF Discontinued atorvastatin 10 mg tablet 10 mg PO DAILY Qty: 30 0RF lisinopril 5 mg tablet See Rx Instructions .ROUTE .COMPLEX Qty: 90 1RF Dose Instruction: TAKE 1 TABLET DAILY Rx Instructions: TAKE 1 TABLET DAILY polyethylene glycol 3350 [Miralax] 17 gram Powder In Packet 17 g PO QAM PRN (Reason: constipation) metformin 500 mg tablet See Rx Instructions .ROUTE .COMPLEX Qty: 30 3RF Dose Instruction: TAKE 1 TABLET DAILY Rx Instructions: TAKE 1 TABLET DAILY Date of admission: 06/08/25 11:08 Primary Care Provider: Raj Stevens Admitting Provider: Gume Lovell Attending physician on admission: Gume Lovell Condition: Stable
--- NOTE | 2025-06-09 16:58 | WPDGIPROGNO ---
Progress Note: A&P Assessment and Plan (1) Constipation: Qualifiers: Constipation type: unspecified constipation type Qualified Code(s): K59.00 - Constipation, unspecified Code(s): K59.00 - Constipation, unspecified Status: Acute Assessment and Plan: doing well going home with laxative no lesions in barium enema (2) Abnormal CT of the abdomen: Code(s): R93.5 - Abnormal findings on diagnostic imaging of other abdominal regions, including retroperitoneum Status: Acute (3) Colon, diverticulosis: Code(s): K57.30 - Diverticulosis of large intestine without perforation or abscess without bleeding Status: Acute Subjective Date/time seen: 06/09/25 16:58 Interval history: doing well, had BM after laxatives enema showed diverticulosis, no worrisome finding and he is going home today Review of Systems Review of Systems: All systems reviewed & are unremarkable except as noted in HPI and below Exam Const: General: comfortable and no acute distress HENMT: Face/Nose/Sinus: Normal nares present Eyes: General: appearance normal, both eyes and all related structures Neck: Neck: no JVD Resp: Auscultation: clear to auscultation bilaterally Cardio: Rate: regular rate Rhythm: regular rhythm GI: Inspection: non-distended GI Palp: Yes Soft to palpation Skin: General skin exam: normal color Neuro: Speech: normal speech Extrem: General: normal to inspection Psych: Mental Status: mental status grossly normal Objective Data Vital Signs Vital Signs: Vital Signs - 24 hr 06/08/25 20:00 06/08/25 22:22 06/08/25 22:29 Temperature 97.6 F Pulse Rate 67 66 Respiratory Rate 20 18 Blood Pressure 143/77 H Pulse Oximetry 100 100 Oxygen Delivery Room Air Room Air Fraction of Inspired Oxygen 06/09/25 06:00 06/09/25 07:20 06/09/25 09:27 Temperature 97.7 F Pulse Rate 80 Respiratory Rate 18 Blood Pressure 137/78 Pulse Oximetry 100 100 Oxygen Delivery Room Air Room Air Fraction of Inspired Oxygen 06/09/25 14:00 Temperature 97.6 F Pulse Rate 85 Respiratory Rate 12 Blood Pressure 122/71 Pulse Oximetry 100 Oxygen Delivery Fraction of Inspired Oxygen Intake/Output Intake/Output: Intake & Output 06/06/25 06/07/25 06/08/25 06/09/25 23:59 23:59 23:59 23:59 Intake Total 830 1914 240 Output Total 471 897 7399 Balance 405 1114 -1310 Meds/Results Medications: Active Medications Generic Name Dose Route Start Last Admin Trade Name Freq PRN Reason Stop Dose Admin Acetaminophen 650 mg 06/07/25 08:36 Acetaminophen 325 Mg Tablet PO Q4H PRN Mild Pain (1-3) or Fever Bisacodyl 5 mg 06/08/25 09:00 06/09/25 08:47 Bisacodyl 5 Mg Tablet Ec PO Not Given QAM ARIES Carbidopa/Levodopa 1 tablet 06/07/25 13:00 06/09/25 12:44 Carbidopa/Levodopa 25/100 Mg Tablet BY MOUTH 1 tablet TID ARIES Administration Enoxaparin Sodium 40 mg 06/08/25 09:00 06/09/25 08:47 Enoxaparin 40 Mg/0.4 Ml Syringe SUB-Q Not Given DAILY [facility] Fish Oil 2 gm 06/08/25 09:00 06/09/25 08:47 [place] 3 Polyunsat Fatty Acids 1 Gm Cap PO Not Given DAILY ARIES Levothyroxine Sodium 75 mcg 06/07/25 13:00 06/09/25 06:37 Levothyroxine Sodium 75 Mcg Tablet BY MOUTH 75 mcg DAILY@0630 [facility] Administration Multivitamins Therapeutic 1 tablet 06/08/25 09:00 06/09/25 08:47 Multivitamins Therapeutic Tab (*Bkc) PO Not Given DAILY ARIES Ondansetron HCl 4 mg 06/07/25 08:36 Ondansetron Inj 4 Mg/2 Ml Vial IV PUSH Q4H PRN Nausea Polyethylene Glycol 17 gm 06/07/25 09:00 06/09/25 12:40 Polyethylene Glycol 3350 17 Gm Powd.Pack PO Not Given TID ARIES Polyethylene Glycol 17 gm 06/07/25 12:35 Polyethylene Glycol 3350 17 Gm Powd.Pack PO QAM PRN constipation Tamsulosin HCl 0.4 mg 06/07/25 13:00 06/09/25 08:47 Tamsulosin Hcl 0.4 Mg Capsule BY MOUTH Not Given DAILY [facility] Radiology Results: ITS Impressions Abdomen/Pelvis CT 06/07/25 07:20 IMPRESSION: Redemonstration of the stricture within the sigmoid colon, with interval progression of fecal stasis within the proximal colon. These findings are an interval change from the 2019 examination as detailed above. Enema w/Water Soluble 06/09/25 13:28 IMPRESSION: 1. Mild diverticulosis along the sigmoid colon.
== END 2025-06-09 17:18 | disposition home or self-care (01) | DRG 392 ==
LOC: ANHED 06-07 08:37 → ANH3MED 06-07 10:21
PROVIDERS: Physician Assistant; Admitting Provider Internal Medicine; Emergency Provider Student in an Organized Health Care Education/Training Program; PCP Internal Medicine; Visit Provider Physician Assistant
DX: K59.00 Constipation, unspecified (principal); K57.30 Diverticulosis of large intestine without perforation or abscess without bleeding; R93.5 Abnormal findings on diagnostic imaging of other abdominal regions, including retroperitoneum; N40.0 Benign prostatic hyperplasia without lower urinary tract symptoms; E03.9 Hypothyroidism, unspecified; E55.9 Vitamin D deficiency, unspecified; E78.2 Mixed hyperlipidemia; G20.C Parkinsonism, unspecified; H54.7 Unspecified visual loss; I10 Essential (primary) hypertension; R73.03 Prediabetes; S22.42XD Multiple fractures of ribs, left side, subsequent encounter for fracture with routine healing; W19.XXXD Unspecified fall, subsequent encounter; Z85.828 Personal history of other malignant neoplasm of skin; Z86.73 Personal history of transient ischemic attack (TIA), and cerebral infarction without residual deficits; Z90.49 Acquired absence of other specified parts of digestive tract; Z87.891 Personal history of nicotine dependence; Z79.84 Long term (current) use of oral hypoglycemic drugs
CPT/HCPCS: 36415; 74177; 74270; 80053; 81001; 82948; 83690; 83880; 85025; 96372; 96374; 99284; 99285; A9270; G0378; J1650; Q9967

== ENCOUNTER 2025-06-26 02:13 | Day surgery (SDC) | payer MEDICARE, OTHER, SELFPAY ==
[2025-06-19 08:38] VITALS: BMI 23.1
--- NOTE | 2025-06-26 09:00 | P.PNAN_ITS ---
Anes - Initial Pre Proc Eval Procedure: Operation Date: 06/26/25 15:00 Proposed Procedures p Diagnostic Colonoscopy - Bharath Haddad MD Date/Time: 06/26/25 09:00 Surgeon: Bharath Haddad MD Pre Op Diagnosis: Abnormal findings on diagnostic imaging of other a Patient Data Age: 85 Gender: M Height: 1.88 m Weight: 81.81 kg Allergies Allergy/AdvReac Type Severity Reaction Status Date / Time No Known Allergies Allergy Unknown Verified 06/26/25 15:09 Home Medications ?Medication ?Instructions ?Recorded ?Confirmed ?Type multivitamin 1 tablet PO DAILY 09/29/20 06/26/25 History omega-3 fatty acids-fish oil 360 2 cap PO DAILY 02/20/24 06/26/25 History mg-1,200 mg capsule metformin 500 mg tablet 500 mg PO DAILY #90 tabs 03/17/25 06/26/25 Rx tamsulosin 0.4 mg capsule See Rx Instructions .Route 04/08/25 06/26/25 Rx .COMPLEX #90 caps levothyroxine 75 mcg tablet See Rx Instructions .Route 05/20/25 06/26/25 Rx .COMPLEX #90 tabs carbidopa 25 mg-levodopa 100 mg See Rx Instructions .Route 05/26/25 06/26/25 Rx tablet .COMPLEX #90 tabs methylcellulose (laxative) 500 mg 500 mg PO DAILY 06/17/25 06/26/25 History tablet (Citrucel) polyethylene glycol 3350 17 17 g PO BID constipation 30 days 06/17/25 06/26/25 Rx gram/dose oral powder (Miralax) #1,020 grams simethicone 500 mg capsule 500 mg PO QID 06/17/25 06/19/25 History (Phazyme) Patient hx anesthesia problems: none Family hx anesthesia problems: none Results Review: All pre-operative results and documents have been reviewed as part of the pre- operative evaluation. 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 Hearing loss Erectile dysfunction Testicular hypofunction Hyperlipidemia Benign essential hypertension Pre-diabetes Surgical History Surgical History (Reviewed 06/17/25 @ 07:41 by Nena Sepulveda [facility]) History of colonoscopy with polypectomy Dr Luna, 03/13/23 History of appendectomy Family History Family History (Reviewed 06/17/25 @ 07:41 by Nena Sepulveda [facility]) Father Family history of pancreatic cancer Social History Social History (Reviewed 06/17/25 @ 07:41 by Nena Sepulveda [facility]) Social History: ( 2023) Surrogate medical decision maker: Brayan Chatman, son ([phone]). Code status: Full code. Smoking packs per day: 0.5 Smoking cigarettes per day: 10.0 Years smoked: 5 Smoking pack-years: 2.50 Smoking status: Former smoker Tobacco type: cigarettes Smoking end date: 11/13/72 Alcohol intake: never Drinks per week: 1 Alcohol use details: social alcohol use in moderation Substance use: never Substance use type: does not use Do You Feel Safe in your Home?: Yes Lack of Transportation: No Lack of Food: Never True Current Housing: I Have Housing Concerned About Future Housing: No Difficulty Paying Gas/Electric Bills: No Difficulty Paying for Meds: No Currently Unemployed: No Education: Master's Degree or Higher Difficulty w/ Childcare or Family Care: No Living arrangements: alone Additional living arrangements comments: Lives alone in independent living at [facility]. Occupation/Education: retired Additional occupation/education comments: Retired [employer]. Spiritual care concerns: No Anes - Eval Final PreProcedure Day of Procedure 06/26/25 09:00 Patient weight: normal Heart: regular rate and rhythm Lungs: clear to auscultation and normal air movement Airway: Mallampati scale class II Neurological: alert and oriented Last oral intake: >/= 8 hours ASA classification: III Emergent: no Anesthetic plan: proceed Anesthesia type and monitoring: general GIVS and standard monitoring Results Review: All pre-operative results and documents have been reviewed as part of the pre- operative evaluation. Informed Consent: The patient's anesthetic plan and its attendant risks and benefits were discussed with the patient/family/POA. Questions were solicited and answers provided to the satisfaction of the patient/family/POA.
[2025-06-26 15:11] VITALS: BP 146/83; PULSE 78; RESP 18; TEMP 36.5; O2SAT 100; BMI 22.0
[2025-06-26] MEDS: LACTATED RINGERS 1,000 ML 150 ML IV CONT (15:22)
--- NOTE | 2025-06-26 15:51 | WPDHPUPDATE1 ---
History and Physical Update Update Date/Time: 06/26/25 15:51 History and Physical has been reviewed, including an updated exam of the patient. There are NO changes in the patient's condition. Risks, benefits, and alternatives have been discussed and questions answered. Patient agrees to proceed with procedure.
--- NOTE | 2025-06-26 16:05 | S_PTH ---
PATIENT: Issa Chatman LOC: [facility] Lo#:[id number] AGE/SX: 85/M ROOM: RE06/26/[address]: Bharath Haddad MD : [id number] BED: DIS: 06/26/2025 SPEC #: [id number] RECD: 06/27/25 08:38 STATUS: JAY REReginald #: [id number] CHIDI: 06/26/25 16:[address]: Bharath Haddad DEPT: [facility] Surgical RECD BY: Maria Luz Junior ENTERED: 06/27/25 08:38 SP TYPE: Surgical OTHR DR: Raj Stevens MD Tissues: A - Colon Polypectomy Procedures: Hematoxylin and Eosin Stain Gross and Microscopic Level 4
[2025-06-26 16:07] VITALS: BP 96/52; PULSE 70; RESP 18; O2SAT 100
[2025-06-26 16:17] VITALS: BP 118/53; PULSE 76; RESP 12; O2SAT 100
[2025-06-26 16:27] VITALS: BP 119/64; PULSE 63; RESP 15; O2SAT 100
[2025-06-26 16:37] VITALS: BP 131/72; PULSE 64; RESP 19; O2SAT 100
== END 2025-06-26 17:03 | disposition home or self-care (01) ==
PROVIDERS: PCP Internal Medicine; Visit Provider Internal Medicine Gastroenterology
PROC: 0DJD8ZZ Inspection of Lower Intestinal Tract, Via Natural or Artificial Opening Endoscopic (ICD-10-PCS; CPT 45378; principal; 2025-06-26 15:00)
DX: R93.3 Abnormal findings on diagnostic imaging of other parts of digestive tract (principal); D12.0 Benign neoplasm of cecum; K64.8 Other hemorrhoids; K57.30 Diverticulosis of large intestine without perforation or abscess without bleeding; I12.9 Hypertensive chronic kidney disease with stage 1 through stage 4 chronic kidney disease, or unspecified chronic kidney disease; E11.22 Type 2 diabetes mellitus with diabetic chronic kidney disease; N18.9 Chronic kidney disease, unspecified; R15.9 Full incontinence of feces; N40.1 Benign prostatic hyperplasia with lower urinary tract symptoms; G20.C Parkinsonism, unspecified; E03.9 Hypothyroidism, unspecified; E55.9 Vitamin D deficiency, unspecified; N52.9 Male erectile dysfunction, unspecified; E29.1 Testicular hypofunction; Z79.84 Long term (current) use of oral hypoglycemic drugs; Z98.890 Other specified postprocedural states; Z87.891 Personal history of nicotine dependence; Z85.828 Personal history of other malignant neoplasm of skin; Z87.19 Personal history of other diseases of the digestive system; Z86.79 Personal history of other diseases of the circulatory system; Z80.0 Family history of malignant neoplasm of digestive organs
CPT/HCPCS: 45385; 82948; 88305; J2003; J2704; J7120

== ENCOUNTER 2025-08-08 09:35 | Outpatient (CLI) | payer MEDICARE, OTHER, SELFPAY ==
[2025-08-08 18:10] LABS: Hematocrit 40.7 % (42.0-52.0); Hemoglobin 13.0 g/dL (14.0-18.0); Immature Granulocyte Percent A 0.4 % (0-0.5); Lymphocytes Absolute Auto 1.91 K/mm3 (0.9-3.2); Mean Corpuscular HGB Conc 31.9 g/dl (32-36); Mean Corpuscular Hemoglobin 31.1 pg (26-34); Mean Corpuscular Volume 97.4 fl (80-100); Nucleated Red Blood Cells Absolute Auto 0.000 K/mm3 (0.0-0.012); Nucleated Red Blood Cells Perc 0.0 % (0.0-0.2); Platelet Count Result 263 k/mm3 (150-375); Red Blood Count 4.18 M/mm3 (4.6-6.20); White Blood Count 5.3 K/mm3 (4.5-10.0)
[2025-08-08 18:21] LABS: Hemoglobin A1C 6.0 % (<5.7)
[2025-08-08 18:34] LABS: Alanine Aminotransferase 6 U/L (6-50); Albumin Level 3.8 g/dL (3.5-5.1); Alkaline Phosphatase 72 U/L (38-126); Anion Gap 5 mmol/L (4-12); Aspartate Amino Transferase 20 U/L (17-59); Bilirubin,Total 0.5 mg/dL (0.2-1.3); Blood Urea Nitrogen 17 mg/dL (9-20); Calcium 8.8 mg/dL (8.4-10.2); Carbon Dioxide 29 mmol/L (22-30); Chloride 102 mmol/L (98-107); Cholesterol 183 mg/dL (0-200); Estimated Glomerular Filt Rate 59; Glucose 102 mg/dL (65-110); HDL Direct 45 mg/dL; Potassium 4.4 mmol/L (3.4-5.0); Sodium 136 mmol/L (137-145); Total Protein 6.9 g/dL (6.3-8.2); Triglycerides 66 mg/dL (<150)
[2025-08-08 18:43] LABS: Free T4 Free Thyroxine 1.51 ng/dL (0.78-2.19)
[2025-08-08 19:12] LABS: Thyroid Stimulating Hormone 4.210 uIU/mL (0.465-4.680)
[2025-08-08 19:47] LABS: Vitamin B12 466.0 pg/mL (239-931)
== END 2025-08-08 09:36 | disposition home or self-care (01) ==
LOC: ANHGOSHLAB 09:35
PROVIDERS: PCP Internal Medicine; Visit Provider Internal Medicine
DX: E78.2 Mixed hyperlipidemia (principal); I10 Essential (primary) hypertension; E53.8 Deficiency of other specified B group vitamins; E03.9 Hypothyroidism, unspecified; R73.03 Prediabetes
CPT/HCPCS: 36415; 80053; 80061; 82607; 82746; 83036; 84439; 84443; 85025